=== PATIENT | female | born 1955 | race African-American/Black ===

== ENCOUNTER → 2022-10-01 | Outpatient (CLI) | payer OTHER | END | disposition home or self-care (01) | LOC: XYW 07:59 | PROVIDERS: ATTEND Internal Medicine | DX: I51.7 Cardiomegaly (principal); R06.02 Shortness of breath; R20.0 Anesthesia of skin | CPT/HCPCS: 93306 ==

== ENCOUNTER → 2022-11-28 | Outpatient (CLI) | payer OTHER ==
[2022-11-28 08:54] LABS: Albumin 3.2 g/dL (3.4-5.0); Bilirubin, Direct 0.2 mg/dL (0-0.2); Bilirubin, Total 0.5 mg/dL (0.2-1.0); Total Protein 7.5 g/dL (6.4-8.2)
== END | disposition home or self-care (01) ==
LOC: LAB 06:53
PROVIDERS: ATTEND Internal Medicine
DX: E78.5 Hyperlipidemia, unspecified (principal)
CPT/HCPCS: 36415; 80061; 80076

== ENCOUNTER → 2022-12-30 | Outpatient (CLI) | payer OTHER ==
[2022-12-30 08:46] LABS: Basophils # (auto) 0.1 10 ^3/uL (0-0.2); Eosinophils # (auto) 0.2 10 ^3/uL (0-0.8)
[2022-12-30 08:48] LABS: Basophils % (auto) 0.8 % (0.0-2.0); Eosinophils % (auto) 2.2 % (0.0-7.0); Hematocrit 48.3 % (36.0-46.0); Hemoglobin 15.8 g/dL (12.2-16.2); Lymphocytes # (auto) 2.1 10 ^3/uL (0.4-5.4); Lymphocytes % (auto) 24.4 % (10.0-50.0); Mean Corpuscular Hemoglobin 27.2 pg (28.0-32.0); Mean Corpuscular Hgb Conc. 32.8 g/dL (32.0-36.0); Monocytes # (auto) 0.4 10 ^3/uL (0-1.3); Monocytes % (auto) 4.6 % (0.0-12.0); Nucleated Red Blood Cells % 0.1 %; Red Blood Cells 5.82 10^6/uL (4.0-5.20); Red Cell Distribution Width 19.1 % (11.8-14.3); White Blood Cell 8.8 10^3/uL (4.4-10.8)
[2022-12-30 09:22] LABS: Potassium 3.9 mmol/L (3.5-5.1)
[2022-12-30 09:30] LABS: Albumin 3.2 g/dL (3.4-5.0); BUN/Creatinine Ratio 17.3 (10.0-20.0); Bilirubin, Total 0.6 mg/dL (0.2-1.0); Calcium 8.6 mg/dL (8.5-10.1); Total Protein 7.4 g/dL (6.4-8.2)
== END | disposition home or self-care (01) ==
LOC: LAB 08:30
PROVIDERS: ATTEND Internal Medicine
DX: Z12.11 Encounter for screening for malignant neoplasm of colon (principal); E78.5 Hyperlipidemia, unspecified
CPT/HCPCS: 36415; 80053; 85025

== ENCOUNTER → 2023-03-27 | Outpatient (CLI) | payer OTHER ==
[2023-03-27 08:02] LABS: Basophils # (auto) 0.1 10 ^3/uL (0-0.2); Basophils % (auto) 0.7 % (0.0-2.0); Eosinophils # (auto) 0.2 10 ^3/uL (0-0.8); Lymphocytes # (auto) 2.1 10 ^3/uL (0.4-5.4)
[2023-03-27 08:04] LABS: Eosinophils % (auto) 1.8 % (0.0-7.0); Hematocrit 49.9 % (36.0-46.0); Hemoglobin 16.3 g/dL (12.2-16.2); Lymphocytes % (auto) 19.5 % (10.0-50.0); Mean Corpuscular Hemoglobin 27.8 pg (28.0-32.0); Mean Corpuscular Hgb Conc. 32.7 g/dL (32.0-36.0); Mean Corpuscular Volume 84.9 fL (80.0-100.0); Monocytes # (auto) 0.6 10 ^3/uL (0-1.3); Monocytes % (auto) 5.6 % (0.0-12.0); Neutrophils % (auto) 72.4 % (37.0-80.0); Nucleated Red Blood Cells % 0.3 %; Red Blood Cells 5.88 10^6/uL (4.0-5.20)
== END | disposition home or self-care (01) ==
LOC: LAB 07:35
PROVIDERS: ATTEND Internal Medicine
DX: R79.89 Other specified abnormal findings of blood chemistry (principal)
CPT/HCPCS: 36415; 85025

== ENCOUNTER 2023-05-30 04:10 | Inpatient (IN) | payer OTHER ==
[~2023-05-30] VITALS: Ht 167.6 cm; Wt 105.3 kg
[2023-05-30] VITALS (11 sets, daily range): BP systolic 109–129; BP diastolic 40–68; PULSE 69–150; RESP 17–35; TEMP 97.9–100.9; O2SAT 92–98
[2023-05-30] MEDS ORDERED: methylPREDNISolone SOD SUCC 125 MG/2 ML VL IV ONE (04:15)
[2023-05-30] MEDS ORDERED: IPRATROPIUM BROM 0.5 MG/2.5ML INH SOL NEB ONE (04:15)
[2023-05-30] MEDS ORDERED: ALBUTEROL SULF 2.5 MG/0.5ML(0.5%) NEB SOLN NEB ONE (04:15)
[2023-05-30 04:28] LABS: Basophils # (auto) 0.1 10 ^3/uL (0-0.2); Eosinophils # (auto) 0.1 10 ^3/uL (0-0.8); Mean Corpuscular Hemoglobin 26.3 pg (28.0-32.0); Monocytes # (auto) 0.9 10 ^3/uL (0-1.3)
[2023-05-30 04:30] LABS: Basophils % (auto) 0.8 % (0.0-2.0); Eosinophils % (auto) 0.5 % (0.0-7.0); Hematocrit 55.7 % (36.0-46.0); Hemoglobin 17.7 g/dL (12.2-16.2); Lymphocytes # (auto) 1.9 10 ^3/uL (0.4-5.4); Lymphocytes % (auto) 12.8 % (10.0-50.0); Mean Corpuscular Hgb Conc. 31.8 g/dL (32.0-36.0); Mean Corpuscular Volume 82.9 fL (80.0-100.0); Neutrophils # (auto) 12.1 10 ^3/uL (1.6-8.6); Neutrophils % (auto) 79.9 % (37.0-80.0); Nucleated Red Blood Cells % 0.3 %; Red Blood Cells 6.71 10^6/uL (4.0-5.20); Red Cell Distribution Width 17.5 % (11.8-14.3); White Blood Cell 15.1 10^3/uL (4.4-10.8)
[2023-05-30 04:40] LABS: Chloride 104 mmol/L (98-107); Potassium 3.9 mmol/L (3.5-5.1); Sodium 137 mmol/L (136-145)
[2023-05-30 04:41] LABS: Anion Gap 8 (5-15); Calcium 9.7 mg/dL (8.7-10.4); Carbon Dioxide 25 mmol/L (20-30)
[2023-05-30] MEDS ORDERED: cefTRIAXone SOD 1,000 MG VL IV ONE (04:45)
[2023-05-30] MEDS ORDERED: AZITHROMYCIN 500MG/ 250ML 250 ML IV ONE (04:45)
[2023-05-30 04:46] LABS: BUN/Creatinine Ratio 14.7 (10.0-20.0); Blood Urea Nitrogen 17 mg/dL (9-23); Glucose 109 mg/dL (74-106)
[2023-05-30] MEDS ORDERED: FUROSEMIDE 100 MG/10ML VIAL IV ONE (05:15)
[2023-05-30] MEDS ORDERED: NITROGLYCERIN 0.4MG/HR TOPICAL PATCH TD ONE (05:15)
[2023-05-30 05:20] LABS: COVID19 ANTIGEN SOFIA FIA NEGATIVE (NEGATIVE)
[2023-05-30] MEDS ORDERED: IPRATROPIUM BROM 0.5 MG/2.5ML INH SOL NEB PRN (06:00)
[2023-05-30] MEDS ORDERED: ALBUTEROL SULF 2.5 MG/0.5ML(0.5%) NEB SOLN NEB PRN (06:00)
[2023-05-30 06:30] LABS: Urine Epithelial Cast None Seen /hpf (<5)
[2023-05-30] MEDS ORDERED: ACETAMINOPHEN 325 MG TAB PO ONE (06:30)
[2023-05-30 06:57] LABS: Urine Bacteria FEW /hpf (None Seen); Urine Blood Negative /uL (Negative); Urine Clarity HAZY (Clear); Urine Color Straw (Yellow); Urine Protein, UAD Negative (Negative); Urine Specific Gravity 1.012 (1.001-1.035); Urine Urobilinogen Normal (Negative); Urine WBC 1 /hpf (0 - 5)
[2023-05-30] MEDS ORDERED: cefTRIAXone 1GM/50ML D5W 50 ML IV SCH (09:00)
[2023-05-30] MEDS: CARVEDILOL 12.5 MG TAB PO SCH ×2 (09:53→22:30)
[2023-05-30] MEDS: LISINOPRIL 10 MG TAB PO SCH (09:53)
[2023-05-30 09:57] LABS: Base Excess 0.3 mmol/L (-2.0-2.0)
[2023-05-30] MEDS ORDERED: EMPAGLIFLOZIN 10 MG TAB PO SCH (10:00)
[2023-05-30] MEDS ORDERED: methylPREDNISolone SOD SUCC 125 MG/2 ML VL IV SCH (10:00)
[2023-05-30] MEDS ORDERED: FUROSEMIDE 20 MG/2 ML VIAL IV SCH ×2 (10:00→17:00)
[2023-05-30] MEDS ORDERED: SACUBITRIL-VALSARTAN 24mg/26mg TAB PO SCH (10:00)
[2023-05-30] MEDS ORDERED: AZITHROMYCIN 500MG/ 250ML 250 ML IV SCH (10:00)
[2023-05-30] MEDS: IPRATROPIUM BROM 0.5 MG/2.5ML INH SOL NEB SCH ×2 (12:25→18:00)
[2023-05-30] MEDS: ALBUTEROL SULF 2.5 MG/0.5ML(0.5%) NEB SOLN NEB SCH ×2 (12:25→18:00)
[2023-05-30] MEDS ORDERED: OPTISON 3ml Vial for INJ IV ONE ×2 (13:45→13:59)
[2023-05-30] MEDS: ALBUTEROL SULF 2.5 MG/0.5ML(0.5%) NEB SOLN NEB PRN (19:26)
[2023-05-30] MEDS: ACETAMINOPHEN 325 MG TAB PO PRN (21:15)
[2023-05-31] VITALS (25 sets, daily range): BP systolic 113–142; BP diastolic 57–102; PULSE 62–127; RESP 16–24; TEMP 97.1–97.9; O2SAT 92–98
[2023-05-31] MEDS: ALBUTEROL SULF 2.5 MG/0.5ML(0.5%) NEB SOLN NEB SCH ×6 (00:36→22:22)
[2023-05-31] MEDS: IPRATROPIUM BROM 0.5 MG/2.5ML INH SOL NEB SCH ×6 (00:36→22:22)
[2023-05-31] MEDS: cefTRIAXone 1GM/50ML D5W 50 ML IV SCH (04:00)
[2023-05-31] MEDS: AZITHROMYCIN 500MG/ 250ML 250 ML IV SCH (05:42)
[2023-05-31 06:15] LABS: Basophils # (auto) 0 10 ^3/uL (0-0.2); Eosinophils # (auto) 0 10 ^3/uL (0-0.8); Lymphocytes # (auto) 1.5 10 ^3/uL (0.4-5.4)
[2023-05-31 06:19] LABS: Basophils % (auto) 0.2 % (0.0-2.0); Hematocrit 52.9 % (36.0-46.0); Lymphocytes % (auto) 9.3 % (10.0-50.0); Mean Corpuscular Hemoglobin 26.5 pg (28.0-32.0); Mean Corpuscular Hgb Conc. 32.1 g/dL (32.0-36.0); Mean Corpuscular Volume 82.3 fL (80.0-100.0); Monocytes # (auto) 1.4 10 ^3/uL (0-1.3); Monocytes % (auto) 8.8 % (0.0-12.0); Neutrophils # (auto) 12.8 10 ^3/uL (1.6-8.6); Neutrophils % (auto) 81.7 % (37.0-80.0); Nucleated Red Blood Cells % 0.4 %; Red Blood Cells 6.43 10^6/uL (4.0-5.20); White Blood Cell 15.7 10^3/uL (4.4-10.8)
[2023-05-31 06:20] LABS: Alanine Aminotransferase 26 U/L (7-40); Alkaline Phosphatase 75 U/L (46-116); Anion Gap 10 (5-15); BUN/Creatinine Ratio 19.7 (10.0-20.0); Calcium 9.3 mg/dL (8.7-10.4); Carbon Dioxide 25 mmol/L (20-30); Chloride 101 mmol/L (98-107); Glucose 103 mg/dL (74-106); Potassium 4.6 mmol/L (3.5-5.1); Sodium 136 mmol/L (136-145)
[2023-05-31 06:21] LABS: Albumin 4.2 g/dL (3.2-4.8); Aspartate Aminotransferase 39 U/L (13-40); Bilirubin, Total 0.5 mg/dL (0.2-1.0); Total Protein 7.5 g/dL (5.7-8.2)
[2023-05-31 06:36] LABS: Blood Urea Nitrogen 29 mg/dL (9-23)
[2023-05-31] MEDS: LISINOPRIL 10 MG TAB PO SCH (08:20)
[2023-05-31] MEDS: methylPREDNISolone SOD SUCC 125 MG/2 ML VL IV SCH (08:21)
[2023-05-31] MEDS: CARVEDILOL 12.5 MG TAB PO SCH ×2 (08:21→22:53)
[2023-05-31] MEDS ORDERED: FUROSEMIDE 20 MG/2 ML VIAL IV SCH (10:00)
[2023-05-31] MEDS: ALBUTEROL SULF 2.5 MG/0.5ML(0.5%) NEB SOLN NEB PRN (10:33)
[2023-05-31] MEDS ORDERED: ALPRAZolam 0.5 MG TAB PO ONE (10:45)
[2023-05-31] MEDS: ALPRAZolam 0.5 MG TAB PO PRN (16:29)
[2023-06-01] VITALS (36 sets, daily range): BP systolic 120–149; BP diastolic 59–91; PULSE 65–121; RESP 16–28; TEMP 97.2–98.7; O2SAT 91–99
[2023-06-01] MEDS: ALPRAZolam 0.5 MG TAB PO PRN ×4 (00:45→21:37)
[2023-06-01] MEDS: guaiFENesin 200 MG/10 ML UD GT PRN ×2 (00:45→06:48)
[2023-06-01] MEDS: IPRATROPIUM BROM 0.5 MG/2.5ML INH SOL NEB SCH ×6 (02:10→22:07)
[2023-06-01] MEDS: ALBUTEROL SULF 2.5 MG/0.5ML(0.5%) NEB SOLN NEB SCH ×4 (02:10→13:58)
[2023-06-01] MEDS: cefTRIAXone 1GM/50ML D5W 50 ML IV SCH (05:01)
[2023-06-01] MEDS: AZITHROMYCIN 500MG/ 250ML 250 ML IV SCH (05:01)
[2023-06-01 06:59] LABS: Basophils # (auto) 0 10 ^3/uL (0-0.2); Eosinophils # (auto) 0 10 ^3/uL (0-0.8); Lymphocytes # (auto) 1.1 10 ^3/uL (0.4-5.4); Monocytes # (auto) 0.9 10 ^3/uL (0-1.3); Nucleated Red Blood Cells % 0.3 %
[2023-06-01 07:02] LABS: Hemoglobin 17.3 g/dL (12.2-16.2); Lymphocytes % (auto) 8.9 % (10.0-50.0); Mean Corpuscular Hemoglobin 26.7 pg (28.0-32.0); Mean Corpuscular Hgb Conc. 32.6 g/dL (32.0-36.0); Mean Corpuscular Volume 81.9 fL (80.0-100.0); Monocytes % (auto) 6.8 % (0.0-12.0); Neutrophils # (auto) 10.7 10 ^3/uL (1.6-8.6); Neutrophils % (auto) 84.3 % (37.0-80.0); Red Blood Cells 6.48 10^6/uL (4.0-5.20); Red Cell Distribution Width 16.9 % (11.8-14.3); White Blood Cell 12.6 10^3/uL (4.4-10.8)
[2023-06-01 07:24] LABS: Alanine Aminotransferase 35 U/L (7-40); Albumin 4.1 g/dL (3.2-4.8); Alkaline Phosphatase 74 U/L (46-116); Anion Gap 9 (5-15); Aspartate Aminotransferase 53 U/L (13-40); BUN/Creatinine Ratio 28.2 (10.0-20.0); Bilirubin, Total 0.6 mg/dL (0.2-1.0); Blood Urea Nitrogen 33 mg/dL (9-23); Calcium 9.6 mg/dL (8.5-10.1); Carbon Dioxide 27 mmol/L (20-30); Chloride 101 mmol/L (98-107); Glucose 89 mg/dL (74-106); Sodium 137 mmol/L (136-145); Total Protein 7.4 g/dL (5.7-8.2)
[2023-06-01] MEDS: LISINOPRIL 10 MG TAB PO SCH (09:30)
[2023-06-01] MEDS: methylPREDNISolone SOD SUCC 125 MG/2 ML VL IV SCH ×3 (09:31→21:27)
[2023-06-01] MEDS: CARVEDILOL 12.5 MG TAB PO SCH ×2 (09:31→15:40)
[2023-06-01] MEDS ORDERED: DOXY-267 PO (12:26)
[2023-06-01] MEDS ORDERED: ATOR10TA52 PO (12:26)
[2023-06-01] MEDS ORDERED: MET25T PO (12:26)
[2023-06-01] MEDS ORDERED: FLUT50SP NAS (12:26)
[2023-06-01] MEDS ORDERED: AMLO1TAB22 PO (12:26)
[2023-06-01] MEDS ORDERED: BUPR-60 PO (12:26)
[2023-06-01] MEDS ORDERED: SIMV10TA20 PO (12:26)
[2023-06-01] MEDS ORDERED: HYDR-4798 (12:26)
[2023-06-01] MEDS ORDERED: IPRA0.00 (12:26)
[2023-06-01] MEDS ORDERED: UMEC1AER (12:26)
[2023-06-01] MEDS ORDERED: HYDR25TA5 PO (12:26)
[2023-06-01] MEDS ORDERED: TEMA15CA2 PO (12:26)
[2023-06-01] MEDS ORDERED: LOSA50TA46 PO (12:26)
[2023-06-01] MEDS ORDERED: PRED20TA2 PO (12:26)
[2023-06-01] MEDS ORDERED: ALBU108A5 INH (12:26)
[2023-06-01] MEDS: ALBUTEROL SULF 2.5 MG/0.5ML(0.5%) NEB SOLN NEB PRN (12:30)
[2023-06-01 12:56] LABS: Base Excess 1.7 mmol/L (-2.0-2.0)
[2023-06-01] MEDS ORDERED: methylPREDNISolone SOD SUCC 40 MG/ML VL IV ONE (13:30)
[2023-06-01] MEDS ORDERED: AMIODARONE BOLUS KIT 100 ML IV ONE (14:00)
[2023-06-01] MEDS ORDERED: ENOXAPARIN SOD 100 MG/1 ML SYRINGE SC ONE (14:00)
[2023-06-01] MEDS ORDERED: AMIODARONE 450mg/250ml AE 250 ML IV SCH ×2 (14:00→20:00)
[2023-06-01] MEDS ORDERED: CARVEDILOL 12.5 MG TAB PO ONE (15:30)
[2023-06-01] MEDS ORDERED: ALBUTEROL SULF 2.5 MG/0.5ML(0.5%) NEB SOLN NEB ONE (16:45)
[2023-06-01] MEDS ORDERED: LEVALBUTEROL HCL 1.25 MG/3 ML NEB NEB SCH (18:00)
[2023-06-01] MEDS: LEVALBUTEROL HCL 1.25 MG/3 ML NEB NEB SCH (22:07)
[2023-06-02] VITALS (40 sets, daily range): BP systolic 108–158; BP diastolic 53–110; PULSE 85–113; RESP 19–40; TEMP 97.4–99.5; O2SAT 89–100
[2023-06-02] MEDS: LEVALBUTEROL HCL 1.25 MG/3 ML NEB NEB SCH ×6 (02:09→22:15)
[2023-06-02] MEDS: IPRATROPIUM BROM 0.5 MG/2.5ML INH SOL NEB SCH ×6 (02:09→22:15)
[2023-06-02] MEDS: cefTRIAXone 1GM/50ML D5W 50 ML IV SCH (03:09)
[2023-06-02] MEDS: methylPREDNISolone SOD SUCC 125 MG/2 ML VL IV SCH ×3 (03:10→21:04)
[2023-06-02] MEDS: ALPRAZolam 0.5 MG TAB PO PRN ×2 (03:11→21:04)
[2023-06-02 04:01] LABS: Base Excess 0.1 mmol/L (-2.0-2.0)
[2023-06-02] MEDS: AZITHROMYCIN 500MG/ 250ML 250 ML IV SCH (04:33)
[2023-06-02 04:44] LABS: Basophils # (auto) 0 10 ^3/uL (0-0.2); Eosinophils # (auto) 0 10 ^3/uL (0-0.8); Hemoglobin 17.4 g/dL (12.2-16.2); Monocytes # (auto) 0.2 10 ^3/uL (0-1.3)
[2023-06-02 04:46] LABS: Basophils % (auto) 0.1 % (0.0-2.0); Hematocrit 54.4 % (36.0-46.0); Lymphocytes # (auto) 0.7 10 ^3/uL (0.4-5.4); Lymphocytes % (auto) 6.9 % (10.0-50.0); Mean Corpuscular Hemoglobin 26.6 pg (28.0-32.0); Monocytes % (auto) 2.3 % (0.0-12.0); Neutrophils # (auto) 8.5 10 ^3/uL (1.6-8.6); Neutrophils % (auto) 90.7 % (37.0-80.0); Nucleated Red Blood Cells % 0.5 %; Red Blood Cells 6.55 10^6/uL (4.0-5.20); Red Cell Distribution Width 17.1 % (11.8-14.3); White Blood Cell 9.4 10^3/uL (4.4-10.8)
[2023-06-02 05:02] LABS: Alanine Aminotransferase 35 U/L (7-40); Alkaline Phosphatase 68 U/L (46-116); Anion Gap 3 (5-15); Aspartate Aminotransferase 36 U/L (13-40); BUN/Creatinine Ratio 22.3 (10.0-20.0); Bilirubin, Total 0.4 mg/dL (0.2-1.0); Calcium 9.1 mg/dL (8.7-10.4); Carbon Dioxide 29 mmol/L (20-30); Chloride 102 mmol/L (98-107); Glucose 142 mg/dL (74-106); Potassium 5.2 mmol/L (3.5-5.1); Sodium 134 mmol/L (136-145); Total Protein 7.2 g/dL (5.7-8.2)
[2023-06-02 05:18] LABS: Blood Urea Nitrogen 23 mg/dL (9-23)
[2023-06-02 08:31] LABS: Base Excess 3.7 mmol/L (-2.0-2.0)
[2023-06-02] MEDS ORDERED: ENOXAPARIN SOD 100 MG/1 ML SYRINGE SC SCH (10:00)
[2023-06-02] MEDS: CARVEDILOL 12.5 MG TAB PO SCH (10:06)
[2023-06-02] MEDS: LISINOPRIL 10 MG TAB PO SCH (10:06)
[2023-06-02] MEDS ORDERED: MAGNESIUM SULFATE 1GM/100ML 100 ML IV ONE (11:45)
[2023-06-02] MEDS: BUMETANIDE 2.5mg/10ml (0.25 mg/ml) INJ IV SCH ×2 (12:35→18:34)
[2023-06-02 16:33] LABS: Base Excess 5.6 mmol/L (-2.0-2.0)
[2023-06-02] MEDS: ALBUTEROL SULF 2.5 MG/0.5ML(0.5%) NEB SOLN NEB PRN (16:38)
[2023-06-02] MEDS: BUDESONIDE (INHALATION) 0.5 MG/2 ML NEB NEB SCH (22:15)
[2023-06-03] VITALS (38 sets, daily range): BP systolic 101–151; BP diastolic 53–98; PULSE 83–113; RESP 15–25; TEMP 97.7–98.9; O2SAT 87–98
[2023-06-03] MEDS: LEVALBUTEROL HCL 1.25 MG/3 ML NEB NEB SCH ×6 (02:19→22:18)
[2023-06-03] MEDS: IPRATROPIUM BROM 0.5 MG/2.5ML INH SOL NEB SCH ×6 (02:20→22:18)
[2023-06-03] MEDS: cefTRIAXone 1GM/50ML D5W 50 ML IV SCH (03:27)
[2023-06-03 04:54] LABS: Basophils # (auto) 0 10 ^3/uL (0-0.2); Eosinophils # (auto) 0 10 ^3/uL (0-0.8); Lymphocytes # (auto) 0.7 10 ^3/uL (0.4-5.4)
[2023-06-03 04:55] LABS: Basophils % (auto) 0.1 % (0.0-2.0); Hematocrit 56.1 % (36.0-46.0); Lymphocytes % (auto) 5.4 % (10.0-50.0); Mean Corpuscular Hemoglobin 26.6 pg (28.0-32.0); Mean Corpuscular Volume 82.9 fL (80.0-100.0); Monocytes # (auto) 0.6 10 ^3/uL (0-1.3); Monocytes % (auto) 4.9 % (0.0-12.0); Neutrophils # (auto) 11.7 10 ^3/uL (1.6-8.6); Neutrophils % (auto) 89.6 % (37.0-80.0); Nucleated Red Blood Cells % 0.6 %; Red Blood Cells 6.76 10^6/uL (4.0-5.20)
[2023-06-03 05:12] LABS: Alanine Aminotransferase 40 U/L (7-40); Alkaline Phosphatase 66 U/L (46-116); Anion Gap 2 (5-15); Aspartate Aminotransferase 26 U/L (13-40); Calcium 9.5 mg/dL (8.5-10.1); Carbon Dioxide 34 mmol/L (20-30); Chloride 103 mmol/L (98-107); Glucose 141 mg/dL (74-106); Potassium 5.3 mmol/L (3.5-5.1); Sodium 139 mmol/L (136-145)
[2023-06-03 05:13] LABS: Bilirubin, Total 0.5 mg/dL (0.2-1.0); Total Protein 7.2 g/dL (5.7-8.2)
[2023-06-03 05:18] LABS: Blood Urea Nitrogen 33 mg/dL (9-23)
[2023-06-03] MEDS: BUMETANIDE 2.5mg/10ml (0.25 mg/ml) INJ IV SCH ×2 (05:41→18:36)
[2023-06-03] MEDS: BUDESONIDE (INHALATION) 0.5 MG/2 ML NEB NEB SCH ×2 (06:49→22:18)
[2023-06-03] MEDS: ALBUTEROL SULF 2.5 MG/0.5ML(0.5%) NEB SOLN NEB PRN (06:49)
[2023-06-03 08:40] LABS: Base Excess 8.6 mmol/L (-2.0-2.0)
[2023-06-03] MEDS: LISINOPRIL 10 MG TAB PO SCH (09:57)
[2023-06-03] MEDS: methylPREDNISolone SOD SUCC 125 MG/2 ML VL IV SCH ×2 (09:59→18:00)
[2023-06-03] MEDS: AZITHROMYCIN 250 MG TAB PO SCH (09:59)
[2023-06-03] MEDS ORDERED: dilTIAZem HCL 180MG ER CAP PO SCH (10:00)
[2023-06-03] MEDS: Ensure Enlive Strawberry 8oz Bottle PO SCH (18:00)
[2023-06-03] MEDS: ALPRAZolam 0.5 MG TAB PO PRN (22:01)
[2023-06-04] VITALS (34 sets, daily range): BP systolic 121–179; BP diastolic 74–139; PULSE 79–107; RESP 13–30; TEMP 97–98.2; O2SAT 85–93
[2023-06-04] MEDS: methylPREDNISolone SOD SUCC 125 MG/2 ML VL IV SCH ×3 (01:57→18:03)
[2023-06-04] MEDS: LEVALBUTEROL HCL 1.25 MG/3 ML NEB NEB SCH ×6 (02:14→22:48)
[2023-06-04] MEDS: IPRATROPIUM BROM 0.5 MG/2.5ML INH SOL NEB SCH ×6 (02:14→22:48)
[2023-06-04] MEDS: cefTRIAXone 1GM/50ML D5W 50 ML IV SCH (03:18)
[2023-06-04] MEDS: ALBUTEROL SULF 2.5 MG/0.5ML(0.5%) NEB SOLN NEB PRN ×2 (04:09→11:39)
[2023-06-04 04:51] LABS: Basophils # (auto) 0 10 ^3/uL (0-0.2); Eosinophils # (auto) 0 10 ^3/uL (0-0.8); Hemoglobin 18.5 g/dL (12.2-16.2); Lymphocytes # (auto) 0.7 10 ^3/uL (0.4-5.4); Lymphocytes % (auto) 5.1 % (10.0-50.0); Monocytes # (auto) 0.3 10 ^3/uL (0-1.3); Monocytes % (auto) 2.6 % (0.0-12.0); Neutrophils # (auto) 11.8 10 ^3/uL (1.6-8.6)
[2023-06-04 04:54] LABS: Basophils % (auto) 0.1 % (0.0-2.0); Eosinophils % (auto) 0.1 % (0.0-7.0); Mean Corpuscular Hemoglobin 26.3 pg (28.0-32.0); Mean Corpuscular Hgb Conc. 31.5 g/dL (32.0-36.0); Mean Corpuscular Volume 83.7 fL (80.0-100.0); Neutrophils % (auto) 92.1 % (37.0-80.0); Nucleated Red Blood Cells % 0.6 %; Red Blood Cells 7.02 10^6/uL (4.0-5.20); Red Cell Distribution Width 16.9 % (11.8-14.3); White Blood Cell 12.8 10^3/uL (4.4-10.8)
[2023-06-04 04:58] LABS: Hematocrit 58.8 % (36.0-46.0)
[2023-06-04 05:16] LABS: Alanine Aminotransferase 42 U/L (7-40); Albumin 4.1 g/dL (3.2-4.8); Alkaline Phosphatase 72 U/L (46-116); Anion Gap 4 (5-15); Aspartate Aminotransferase 20 U/L (13-40); BUN/Creatinine Ratio 31.5 (10.0-20.0); Bilirubin, Total 0.5 mg/dL (0.2-1.0); Blood Urea Nitrogen 35 mg/dL (9-23); Calcium 10.2 mg/dL (8.5-10.1); Carbon Dioxide 34 mmol/L (20-30); Chloride 100 mmol/L (98-107); Glucose 178 mg/dL (74-106); Potassium 5.1 mmol/L (3.5-5.1); Sodium 138 mmol/L (136-145); Total Protein 7.4 g/dL (5.7-8.2)
[2023-06-04] MEDS: BUMETANIDE 2.5mg/10ml (0.25 mg/ml) INJ IV SCH ×2 (05:29→18:02)
[2023-06-04] MEDS: BUDESONIDE (INHALATION) 0.5 MG/2 ML NEB NEB SCH ×2 (06:50→18:26)
[2023-06-04] MEDS: Ensure Enlive Strawberry 8oz Bottle PO SCH ×3 (08:21→18:00)
[2023-06-04 09:28] LABS: Base Excess 7.1 mmol/L (-2.0-2.0)
[2023-06-04] MEDS: AZITHROMYCIN 250 MG TAB PO SCH (09:43)
[2023-06-04] MEDS: dilTIAZem HCL 180MG ER CAP PO SCH (09:45)
[2023-06-04] MEDS: ACETYLCYSTEINE 10 %(100MG/ML) SOL 4ML NEB SCH ×2 (14:17→22:48)
[2023-06-04] MEDS: ALPRAZolam 0.5 MG TAB PO PRN (20:47)
[2023-06-04] MEDS: DOCUSATE ORAL LIQUID 100 MG/10 ML UD GT SCH (21:14)
[2023-06-05] VITALS (44 sets, daily range): BP systolic 129–171; BP diastolic 72–104; PULSE 64–104; RESP 14–26; TEMP 97.2–98.5; O2SAT 88–95
[2023-06-05] MEDS: methylPREDNISolone SOD SUCC 125 MG/2 ML VL IV SCH ×3 (02:05→17:37)
[2023-06-05] MEDS: LEVALBUTEROL HCL 1.25 MG/3 ML NEB NEB SCH ×6 (02:21→21:54)
[2023-06-05] MEDS: IPRATROPIUM BROM 0.5 MG/2.5ML INH SOL NEB SCH ×6 (02:21→21:54)
[2023-06-05] MEDS: cefTRIAXone 1GM/50ML D5W 50 ML IV SCH (03:50)
[2023-06-05 04:58] LABS: Basophils # (auto) 0 10 ^3/uL (0-0.2); Basophils % (auto) 0.1 % (0.0-2.0); Eosinophils # (auto) 0 10 ^3/uL (0-0.8); Lymphocytes % (auto) 5.8 % (10.0-50.0); Monocytes # (auto) 0.5 10 ^3/uL (0-1.3); Monocytes % (auto) 2.8 % (0.0-12.0); Neutrophils % (auto) 91.3 % (37.0-80.0); Red Cell Distribution Width 17.2 % (11.8-14.3)
[2023-06-05 05:01] LABS: Hemoglobin 18.6 g/dL (12.2-16.2); Mean Corpuscular Hemoglobin 26.1 pg (28.0-32.0); Mean Corpuscular Hgb Conc. 31.2 g/dL (32.0-36.0); Mean Corpuscular Volume 83.5 fL (80.0-100.0); Neutrophils # (auto) 15.4 10 ^3/uL (1.6-8.6); Nucleated Red Blood Cells % 0.4 %; Red Blood Cells 7.14 10^6/uL (4.0-5.20); White Blood Cell 16.9 10^3/uL (4.4-10.8)
[2023-06-05 05:04] LABS: Hematocrit 59.6 % (36.0-46.0)
[2023-06-05 05:38] LABS: Chloride 100 mmol/L (98-107); Potassium 5.3 mmol/L (3.5-5.1); Sodium 136 mmol/L (136-145)
[2023-06-05 05:39] LABS: Anion Gap 4 (5-15); Calcium 9.9 mg/dL (8.7-10.4); Carbon Dioxide 32 mmol/L (20-30)
[2023-06-05 05:44] LABS: BUN/Creatinine Ratio 30.6 (10.0-20.0); Blood Urea Nitrogen 30 mg/dL (9-23); Glucose 174 mg/dL (74-106)
[2023-06-05] MEDS: BUMETANIDE 2.5mg/10ml (0.25 mg/ml) INJ IV SCH ×2 (05:59→17:37)
[2023-06-05] MEDS: ACETYLCYSTEINE 10 %(100MG/ML) SOL 4ML NEB SCH ×3 (06:26→21:54)
[2023-06-05] MEDS: BUDESONIDE (INHALATION) 0.5 MG/2 ML NEB NEB SCH ×2 (06:26→17:17)
[2023-06-05] MEDS: Ensure Enlive Strawberry 8oz Bottle PO SCH ×3 (08:41→18:14)
[2023-06-05] MEDS: DOCUSATE ORAL LIQUID 100 MG/10 ML UD GT SCH ×2 (08:49→21:54)
[2023-06-05] MEDS: dilTIAZem HCL 180MG ER CAP PO SCH (08:49)
[2023-06-05] MEDS: AZITHROMYCIN 250 MG TAB PO SCH (08:50)
[2023-06-05] MEDS ORDERED: SODIUM ZIRCONIUM CYCL 10 GM PAK PO ONE (10:45)
[2023-06-05] MEDS ORDERED: hydrALAZINE HCL 20 MG/ML VL IV PRN (16:15)
[2023-06-05 16:33] LABS: Base Excess 12.2 mmol/L (-2.0-2.0)
[2023-06-05 20:17] LABS: Erythrocyte Sedimentation Rate 2 mm/hr (0-20)
[2023-06-05] MEDS: ALPRAZolam 0.5 MG TAB PO PRN (21:54)
[2023-06-06] VITALS (34 sets, daily range): BP systolic 117–154; BP diastolic 74–94; PULSE 83–104; RESP 13–23; TEMP 97.6–98.8; O2SAT 20–93
[2023-06-06] MEDS: LEVALBUTEROL HCL 1.25 MG/3 ML NEB NEB SCH ×6 (02:08→22:34)
[2023-06-06] MEDS: IPRATROPIUM BROM 0.5 MG/2.5ML INH SOL NEB SCH ×6 (02:08→22:35)
[2023-06-06] MEDS: methylPREDNISolone SOD SUCC 125 MG/2 ML VL IV SCH ×3 (02:58→18:00)
[2023-06-06] MEDS: cefTRIAXone 1GM/50ML D5W 50 ML IV SCH (03:00)
[2023-06-06] MEDS: BUMETANIDE 2.5mg/10ml (0.25 mg/ml) INJ IV SCH (05:56)
[2023-06-06] MEDS: ACETYLCYSTEINE 10 %(100MG/ML) SOL 4ML NEB SCH ×3 (06:31→22:35)
[2023-06-06] MEDS: BUDESONIDE (INHALATION) 0.5 MG/2 ML NEB NEB SCH ×2 (06:32→22:34)
[2023-06-06 07:05] LABS: Hemoglobin 19.2 g/dL (12.2-16.2)
[2023-06-06 07:07] LABS: Mean Corpuscular Hgb Conc. 31.1 g/dL (32.0-36.0); Mean Corpuscular Volume 83.6 fL (80.0-100.0); Red Blood Cells 7.38 10^6/uL (4.0-5.20); White Blood Cell 17.8 10^3/uL (4.4-10.8)
[2023-06-06 07:14] LABS: Chloride 96 mmol/L (98-107); Sodium 140 mmol/L (136-145)
[2023-06-06 07:15] LABS: Anion Gap 6 (5-15); Calcium 10.5 mg/dL (8.5-10.1); Carbon Dioxide 38 mmol/L (20-30)
[2023-06-06 07:20] LABS: BUN/Creatinine Ratio 34.7 (10.0-20.0); Blood Urea Nitrogen 35 mg/dL (9-23); Glucose 147 mg/dL (74-106)
[2023-06-06 07:44] LABS: Hematocrit 61.7 % (36.0-46.0)
[2023-06-06 07:48] LABS: Basophils % (manual) 0 (0.0-2.0); Blast Cells 0; Eosinophils % (manual) 0 (0-7); Lymphocytes % (manual) 0 (10.0-50.0); Metamyelocytes % 0; Myelocytes % 0; Reactive Lymphocytes 0
[2023-06-06] MEDS: Ensure Enlive Strawberry 8oz Bottle PO SCH ×3 (08:00→18:00)
[2023-06-06] MEDS: DOCUSATE ORAL LIQUID 100 MG/10 ML UD GT SCH ×2 (08:23→21:34)
[2023-06-06] MEDS: AZITHROMYCIN 250 MG TAB PO SCH (08:23)
[2023-06-06] MEDS: CHOLECALCIFEROL (VITD3) 2,000 UNIT CAP/TAB PO SCH (08:23)
[2023-06-06] MEDS: ENOXAPARIN SOD 40 MG/0.4 ML SYRINGE SC SCH (08:24)
[2023-06-06] MEDS: dilTIAZem HCL 180MG ER CAP PO SCH (08:25)
[2023-06-06] MEDS ORDERED: BUMETANIDE 2.5mg/10ml (0.25 mg/ml) INJ IV SCH (10:00)
[2023-06-06 13:45] LABS: Band Neutrophils % (manual) 4; Monocytes % (manual) 1 (0-12); Promyelocytes % 4
[2023-06-06 13:46] LABS: Platelet Estimate Adequate
[2023-06-06 17:57] LABS: Rapid Influenza A Negative (Negative); Rapid Influenza B Negative (Negative)
[2023-06-06] MEDS: LACTULOSE 20Gm/30ML SOLN PO PRN (18:54)
[2023-06-06] MEDS: guaiFENesin 200 MG/10 ML UD GT PRN (19:29)
[2023-06-06] MEDS: ALPRAZolam 0.5 MG TAB PO PRN (21:34)
[2023-06-07] VITALS (41 sets, daily range): BP systolic 116–166; BP diastolic 65–107; PULSE 70–115; RESP 12–23; TEMP 97.6–98.7; O2SAT 88–95
[2023-06-07] MEDS: methylPREDNISolone SOD SUCC 125 MG/2 ML VL IV SCH ×3 (01:32→18:21)
[2023-06-07] MEDS: IPRATROPIUM BROM 0.5 MG/2.5ML INH SOL NEB SCH ×4 (02:15→18:31)
[2023-06-07] MEDS: LEVALBUTEROL HCL 1.25 MG/3 ML NEB NEB SCH ×5 (02:15→22:15)
[2023-06-07] MEDS: cefTRIAXone 1GM/50ML D5W 50 ML IV SCH (03:29)
[2023-06-07 05:19] LABS: Mean Corpuscular Hemoglobin 25.5 pg (28.0-32.0); Mean Corpuscular Hgb Conc. 30.6 g/dL (32.0-36.0); Mean Corpuscular Volume 83.5 fL (80.0-100.0); Red Blood Cells 7.45 10^6/uL (4.0-5.20); White Blood Cell 18.8 10^3/uL (4.4-10.8)
[2023-06-07 05:20] LABS: Basophils % (manual) 0 (0.0-2.0); Blast Cells 0; Eosinophils % (manual) 0 (0-7); Hematocrit 62.2 % (36.0-46.0); Metamyelocytes % 0; Myelocytes % 0; Promyelocytes % 0; Reactive Lymphocytes 0
[2023-06-07 06:14] LABS: Chloride 98 mmol/L (98-107); Potassium 4.6 mmol/L (3.5-5.1); Sodium 139 mmol/L (136-145)
[2023-06-07 06:15] LABS: Anion Gap 5 (5-15); Calcium 9.6 mg/dL (8.7-10.4); Carbon Dioxide 36 mmol/L (20-30)
[2023-06-07 06:20] LABS: BUN/Creatinine Ratio 42.7 (10.0-20.0); Blood Urea Nitrogen 41 mg/dL (9-23); Glucose 172 mg/dL (74-106)
[2023-06-07] MEDS: ACETYLCYSTEINE 10 %(100MG/ML) SOL 4ML NEB SCH ×2 (06:52→22:14)
[2023-06-07] MEDS: BUDESONIDE (INHALATION) 0.5 MG/2 ML NEB NEB SCH ×2 (06:52→22:15)
[2023-06-07] MEDS ORDERED: METOCLOPRAMIDE HCL 5MG/ml INJ 2ml VIAL IV ONE (07:45)
[2023-06-07] MEDS ORDERED: POLYETHYLENE GLYCOL 17 GM PWDR PO ONE (07:45)
[2023-06-07] MEDS: Ensure Enlive Strawberry 8oz Bottle PO SCH ×3 (08:00→18:21)
[2023-06-07 08:21] LABS: Band Neutrophils % (manual) 1; Lymphocytes % (manual) 3 (10.0-50.0); Monocytes % (manual) 3 (0-12)
[2023-06-07 08:26] LABS: Platelet Estimate Adequate
[2023-06-07] MEDS: dilTIAZem HCL 180MG ER CAP PO SCH (08:32)
[2023-06-07] MEDS: AZITHROMYCIN 250 MG TAB PO SCH (08:32)
[2023-06-07] MEDS: DOCUSATE ORAL LIQUID 100 MG/10 ML UD GT SCH ×2 (08:33→21:16)
[2023-06-07] MEDS: CHOLECALCIFEROL (VITD3) 2,000 UNIT CAP/TAB PO SCH (08:33)
[2023-06-07] MEDS: ENOXAPARIN SOD 40 MG/0.4 ML SYRINGE SC SCH (08:33)
[2023-06-07] MEDS ORDERED: FUROSEMIDE 20 MG/2 ML VIAL IV SCH (10:00)
[2023-06-07] MEDS: ALBUTEROL SULF 2.5 MG/0.5ML(0.5%) NEB SOLN NEB PRN (22:15)
[2023-06-07] MEDS: ALPRAZolam 0.5 MG TAB PO PRN (23:37)
[2023-06-08] VITALS (34 sets, daily range): BP systolic 129–161; BP diastolic 78–112; PULSE 75–101; RESP 12–22; TEMP 97.3–98.3; O2SAT 82–95
[2023-06-08] MEDS: methylPREDNISolone SOD SUCC 125 MG/2 ML VL IV SCH (02:00)
[2023-06-08] MEDS: LEVALBUTEROL HCL 1.25 MG/3 ML NEB NEB SCH ×6 (02:05→22:34)
[2023-06-08] MEDS: IPRATROPIUM BROM 0.5 MG/2.5ML INH SOL NEB SCH ×6 (02:06→22:34)
[2023-06-08 05:06] LABS: Chloride 96 mmol/L (98-107); Potassium 5.1 mmol/L (3.5-5.1); Sodium 139 mmol/L (136-145)
[2023-06-08 05:07] LABS: Calcium 9.8 mg/dL (8.7-10.4)
[2023-06-08 05:13] LABS: BUN/Creatinine Ratio 41.7 (10.0-20.0); Blood Urea Nitrogen 35 mg/dL (9-23); Glucose 182 mg/dL (74-106)
[2023-06-08] MEDS: cefTRIAXone 1GM/50ML D5W 50 ML IV SCH (05:16)
[2023-06-08 05:18] LABS: Basophils # (auto) 0 10 ^3/uL (0-0.2); Eosinophils # (auto) 0 10 ^3/uL (0-0.8); Lymphocytes # (auto) 0.6 10 ^3/uL (0.4-5.4); Monocytes # (auto) 0.6 10 ^3/uL (0-1.3); Neutrophils % (auto) 94.3 % (37.0-80.0)
[2023-06-08 05:21] LABS: Basophils % (auto) 0.2 % (0.0-2.0); Lymphocytes % (auto) 2.6 % (10.0-50.0); Mean Corpuscular Hemoglobin 26.5 pg (28.0-32.0); Mean Corpuscular Hgb Conc. 32.3 g/dL (32.0-36.0); Mean Corpuscular Volume 82.1 fL (80.0-100.0); Monocytes % (auto) 2.9 % (0.0-12.0); Neutrophils # (auto) 20.6 10 ^3/uL (1.6-8.6); Nucleated Red Blood Cells % 0.6 %; Red Blood Cells 7.15 10^6/uL (4.0-5.20); Red Cell Distribution Width 17.1 % (11.8-14.3); White Blood Cell 21.9 10^3/uL (4.4-10.8)
[2023-06-08 05:27] LABS: Anion Gap 2.99999 (5-15); Carbon Dioxide > 40 mmol/L (20-30)
[2023-06-08 05:40] LABS: Hematocrit 58.7 % (36.0-46.0)
[2023-06-08] MEDS: BUDESONIDE (INHALATION) 0.5 MG/2 ML NEB NEB SCH ×2 (06:36→22:34)
[2023-06-08] MEDS: Ensure Enlive Strawberry 8oz Bottle PO SCH ×3 (08:00→18:47)
[2023-06-08 09:29] LABS: Base Excess 16.6 mmol/L (-2.0-2.0)
[2023-06-08] MEDS: DOCUSATE ORAL LIQUID 100 MG/10 ML UD GT SCH ×2 (10:55→22:21)
[2023-06-08] MEDS: AZITHROMYCIN 250 MG TAB PO SCH (10:55)
[2023-06-08] MEDS: CHOLECALCIFEROL (VITD3) 2,000 UNIT CAP/TAB PO SCH (10:55)
[2023-06-08] MEDS: ENOXAPARIN SOD 40 MG/0.4 ML SYRINGE SC SCH (10:55)
[2023-06-08] MEDS: dilTIAZem HCL 180MG ER CAP PO SCH (10:56)
[2023-06-08] MEDS: FUROSEMIDE 20 MG/2 ML VIAL IV SCH (10:56)
[2023-06-08] MEDS: methylPREDNISolone SOD SUCC 40 MG/ML VL IV SCH (22:21)
[2023-06-09] VITALS (32 sets, daily range): BP systolic 79–151; BP diastolic 73–90; PULSE 67–114; RESP 13–91; TEMP 97.2–98.4; O2SAT 89–97
[2023-06-09] MEDS: IPRATROPIUM BROM 0.5 MG/2.5ML INH SOL NEB SCH ×6 (02:07→22:50)
[2023-06-09] MEDS: LEVALBUTEROL HCL 1.25 MG/3 ML NEB NEB SCH ×6 (02:07→22:50)
[2023-06-09 05:00] LABS: Red Cell Distribution Width 16.9 % (11.8-14.3)
[2023-06-09 05:04] LABS: Hemoglobin 18.6 g/dL (12.2-16.2); Mean Corpuscular Hgb Conc. 31.5 g/dL (32.0-36.0); Mean Corpuscular Volume 82.6 fL (80.0-100.0); Red Blood Cells 7.14 10^6/uL (4.0-5.20); White Blood Cell 20.5 10^3/uL (4.4-10.8)
[2023-06-09 05:08] LABS: Chloride 95 mmol/L (98-107); Potassium 4.9 mmol/L (3.5-5.1); Sodium 137 mmol/L (136-145)
[2023-06-09 05:09] LABS: Calcium 9.4 mg/dL (8.7-10.4)
[2023-06-09 05:14] LABS: BUN/Creatinine Ratio 38.2 (10.0-20.0); Blood Urea Nitrogen 34 mg/dL (9-23); Glucose 202 mg/dL (74-106)
[2023-06-09 05:22] LABS: Basophils % (manual) 0 (0.0-2.0); Blast Cells 0; Eosinophils % (manual) 0 (0-7); Metamyelocytes % 0; Myelocytes % 0; Promyelocytes % 0; Reactive Lymphocytes 0
[2023-06-09 05:52] LABS: Anion Gap 1.99999 (5-15); Carbon Dioxide > 40 mmol/L (20-30)
[2023-06-09] MEDS: cefTRIAXone 1GM/50ML D5W 50 ML IV SCH (06:49)
[2023-06-09 07:11] LABS: Anisocytosis Slight; Band Neutrophils % (manual) 1; Lymphocytes % (manual) 4 (10.0-50.0); Monocytes % (manual) 3 (0-12); Platelet Estimate Adequate
[2023-06-09] MEDS: Ensure Enlive Strawberry 8oz Bottle PO SCH ×3 (09:26→18:51)
[2023-06-09] MEDS: BUDESONIDE (INHALATION) 0.5 MG/2 ML NEB NEB SCH ×2 (10:18→22:50)
[2023-06-09] MEDS: DOCUSATE ORAL LIQUID 100 MG/10 ML UD GT SCH ×2 (10:33→22:21)
[2023-06-09] MEDS: AZITHROMYCIN 250 MG TAB PO SCH (10:33)
[2023-06-09] MEDS: ENOXAPARIN SOD 40 MG/0.4 ML SYRINGE SC SCH (10:33)
[2023-06-09] MEDS: FUROSEMIDE 20 MG/2 ML VIAL IV SCH (10:34)
[2023-06-09] MEDS: methylPREDNISolone SOD SUCC 40 MG/ML VL IV SCH ×2 (10:34→22:21)
[2023-06-09] MEDS: CHOLECALCIFEROL (VITD3) 2,000 UNIT CAP/TAB PO SCH (10:34)
[2023-06-09] MEDS: LACTULOSE 20Gm/30ML SOLN PO PRN (13:54)
[2023-06-09] MEDS: ALPRAZolam 0.5 MG TAB PO PRN (22:21)
[2023-06-10] VITALS (36 sets, daily range): BP systolic 125–155; BP diastolic 69–122; PULSE 84–120; RESP 12–91; TEMP 97–98.6; O2SAT 9–98
[2023-06-10] MEDS: LEVALBUTEROL HCL 1.25 MG/3 ML NEB NEB SCH ×6 (03:08→22:15)
[2023-06-10] MEDS: IPRATROPIUM BROM 0.5 MG/2.5ML INH SOL NEB SCH ×6 (03:08→22:15)
[2023-06-10 05:18] LABS: Hemoglobin 18.6 g/dL (12.2-16.2)
[2023-06-10 05:21] LABS: Mean Corpuscular Hemoglobin 26.2 pg (28.0-32.0); Mean Corpuscular Hgb Conc. 31.9 g/dL (32.0-36.0); Mean Corpuscular Volume 82.3 fL (80.0-100.0); Red Blood Cells 7.09 10^6/uL (4.0-5.20); Red Cell Distribution Width 16.8 % (11.8-14.3); White Blood Cell 23.1 10^3/uL (4.4-10.8)
[2023-06-10 05:27] LABS: Hematocrit 58.3 % (36.0-46.0)
[2023-06-10 05:28] LABS: Band Neutrophils % (manual) 0; Basophils % (manual) 0 (0.0-2.0); Blast Cells 0; Chloride 94 mmol/L (98-107); Eosinophils % (manual) 0 (0-7); Metamyelocytes % 0; Myelocytes % 0; Potassium 4.8 mmol/L (3.5-5.1); Promyelocytes % 0; Reactive Lymphocytes 0; Sodium 136 mmol/L (136-145)
[2023-06-10 05:29] LABS: Anion Gap 3 (5-15); Calcium 10.1 mg/dL (8.5-10.1); Carbon Dioxide 39 mmol/L (20-30)
[2023-06-10 05:34] LABS: BUN/Creatinine Ratio 33.7 (10.0-20.0); Blood Urea Nitrogen 31 mg/dL (9-23); Glucose 210 mg/dL (74-106)
[2023-06-10 08:09] LABS: Lymphocytes % (manual) 4 (10.0-50.0); Monocytes % (manual) 3 (0-12); Platelet Estimate Adequate
[2023-06-10] MEDS: BUDESONIDE (INHALATION) 0.5 MG/2 ML NEB NEB SCH ×2 (10:36→22:15)
[2023-06-10] MEDS: ENOXAPARIN SOD 40 MG/0.4 ML SYRINGE SC SCH (10:39)
[2023-06-10] MEDS: DOCUSATE ORAL LIQUID 100 MG/10 ML UD GT SCH ×2 (10:39→21:20)
[2023-06-10] MEDS: methylPREDNISolone SOD SUCC 40 MG/ML VL IV SCH ×2 (10:40→21:20)
[2023-06-10] MEDS: CHOLECALCIFEROL (VITD3) 2,000 UNIT CAP/TAB PO SCH (10:40)
[2023-06-10] MEDS: FUROSEMIDE 20 MG/2 ML VIAL IV SCH (10:40)
[2023-06-10] MEDS: Ensure Enlive Strawberry 8oz Bottle PO SCH ×3 (10:40→18:18)
[2023-06-10] MEDS: ALPRAZolam 0.5 MG TAB PO PRN (21:20)
[2023-06-11] VITALS (39 sets, daily range): BP systolic 111–149; BP diastolic 63–95; PULSE 95–117; RESP 13–28; TEMP 98.1–100.4; O2SAT 85–99
[2023-06-11] MEDS: IPRATROPIUM BROM 0.5 MG/2.5ML INH SOL NEB SCH ×6 (02:45→22:06)
[2023-06-11] MEDS: LEVALBUTEROL HCL 1.25 MG/3 ML NEB NEB SCH ×6 (02:45→22:06)
[2023-06-11 04:57] LABS: Eosinophils # (auto) 0 10 ^3/uL (0-0.8); Lymphocytes # (auto) 0.3 10 ^3/uL (0.4-5.4); Mean Corpuscular Hgb Conc. 31.4 g/dL (32.0-36.0); Monocytes # (auto) 0.6 10 ^3/uL (0-1.3)
[2023-06-11 05:00] LABS: Basophils # (auto) 0.1 10 ^3/uL (0-0.2); Basophils % (auto) 0.2 % (0.0-2.0); Hemoglobin 18.5 g/dL (12.2-16.2); Lymphocytes % (auto) 1.3 % (10.0-50.0); Monocytes % (auto) 2.5 % (0.0-12.0); Neutrophils # (auto) 23.2 10 ^3/uL (1.6-8.6); Nucleated Red Blood Cells % 0.1 %; Red Blood Cells 7.11 10^6/uL (4.0-5.20); Red Cell Distribution Width 16.6 % (11.8-14.3); White Blood Cell 24.2 10^3/uL (4.4-10.8)
[2023-06-11 05:02] LABS: Anion Gap 3 (5-15); Carbon Dioxide 38 mmol/L (20-30); Chloride 95 mmol/L (98-107); Potassium 4.7 mmol/L (3.5-5.1); Sodium 136 mmol/L (136-145)
[2023-06-11 05:04] LABS: Calcium 9.7 mg/dL (8.7-10.4)
[2023-06-11 05:08] LABS: Glucose 213 mg/dL (74-106)
[2023-06-11 05:09] LABS: BUN/Creatinine Ratio 30.7 (10.0-20.0); Blood Urea Nitrogen 27 mg/dL (9-23)
[2023-06-11] MEDS: BUDESONIDE (INHALATION) 0.5 MG/2 ML NEB NEB SCH ×2 (06:27→22:06)
[2023-06-11] MEDS: Ensure Enlive Strawberry 8oz Bottle PO SCH ×3 (09:18→18:25)
[2023-06-11] MEDS: ENOXAPARIN SOD 40 MG/0.4 ML SYRINGE SC SCH (10:00)
[2023-06-11] MEDS: CHOLECALCIFEROL (VITD3) 2,000 UNIT CAP/TAB PO SCH (10:00)
[2023-06-11] MEDS: FUROSEMIDE 20 MG/2 ML VIAL IV SCH (10:00)
[2023-06-11] MEDS: DOCUSATE ORAL LIQUID 100 MG/10 ML UD GT SCH ×3 (10:00→21:29)
[2023-06-11] MEDS: methylPREDNISolone SOD SUCC 40 MG/ML VL IV SCH (10:00)
[2023-06-11 11:01] LABS: Base Excess 17.5 mmol/L (-2.0-2.0)
[2023-06-11] MEDS: ALPRAZolam 0.5 MG TAB PO PRN (21:20)
[2023-06-12] VITALS (36 sets, daily range): BP systolic 118–156; BP diastolic 62–86; PULSE 86–124; RESP 13–27; TEMP 97.3–99.3; O2SAT 84–97
[2023-06-12] MEDS: IPRATROPIUM BROM 0.5 MG/2.5ML INH SOL NEB SCH ×6 (02:17→22:10)
[2023-06-12] MEDS: LEVALBUTEROL HCL 1.25 MG/3 ML NEB NEB SCH ×6 (02:17→22:10)
[2023-06-12 05:00] LABS: Basophils # (auto) 0 10 ^3/uL (0-0.2); Eosinophils # (auto) 0 10 ^3/uL (0-0.8); Mean Corpuscular Volume 82.4 fL (80.0-100.0)
[2023-06-12 05:02] LABS: Basophils % (auto) 0.1 % (0.0-2.0); Eosinophils % (auto) 0.1 % (0.0-7.0); Hemoglobin 18.6 g/dL (12.2-16.2); Lymphocytes # (auto) 0.8 10 ^3/uL (0.4-5.4); Lymphocytes % (auto) 3.9 % (10.0-50.0); Mean Corpuscular Hemoglobin 26.1 pg (28.0-32.0); Mean Corpuscular Hgb Conc. 31.7 g/dL (32.0-36.0); Monocytes % (auto) 4.6 % (0.0-12.0); Neutrophils # (auto) 20.1 10 ^3/uL (1.6-8.6); Neutrophils % (auto) 91.3 % (37.0-80.0); Nucleated Red Blood Cells % 0.2 %; Red Blood Cells 7.11 10^6/uL (4.0-5.20); Red Cell Distribution Width 16.8 % (11.8-14.3)
[2023-06-12 05:12] LABS: Chloride 95 mmol/L (98-107); Sodium 135 mmol/L (136-145)
[2023-06-12 05:13] LABS: Anion Gap 1 (5-15); Calcium 9.1 mg/dL (8.7-10.4); Carbon Dioxide 39 mmol/L (20-30)
[2023-06-12 05:15] LABS: Hematocrit 58.5 % (36.0-46.0)
[2023-06-12 05:18] LABS: BUN/Creatinine Ratio 30.9 (10.0-20.0); Blood Urea Nitrogen 25 mg/dL (9-23); Glucose 150 mg/dL (74-106)
[2023-06-12] MEDS: ACETAMINOPHEN 325 MG TAB PO PRN (05:34)
[2023-06-12] MEDS: BUDESONIDE (INHALATION) 0.5 MG/2 ML NEB NEB SCH ×2 (07:20→18:10)
[2023-06-12] MEDS: methylPREDNISolone SOD SUCC 40 MG/ML VL IV SCH (08:35)
[2023-06-12] MEDS: FUROSEMIDE 20 MG/2 ML VIAL IV SCH (08:36)
[2023-06-12] MEDS: DOCUSATE ORAL LIQUID 100 MG/10 ML UD GT SCH (08:36)
[2023-06-12] MEDS: ENOXAPARIN SOD 40 MG/0.4 ML SYRINGE SC SCH (08:36)
[2023-06-12] MEDS: CHOLECALCIFEROL (VITD3) 2,000 UNIT CAP/TAB PO SCH (08:36)
[2023-06-12] MEDS: Ensure Enlive Strawberry 8oz Bottle PO SCH ×3 (08:48→18:41)
[2023-06-12] MEDS ORDERED: dilTIAZem HCL 180MG ER CAP PO ONE (10:15)
[2023-06-12] MEDS: DOCUSATE ORAL LIQUID 100 MG/10 ML UD PO SCH (22:00)
[2023-06-12] MEDS: ALPRAZolam 0.5 MG TAB PO PRN (22:25)
[2023-06-13] VITALS (15 sets, daily range): BP systolic 121–147; BP diastolic 76–92; PULSE 90–106; RESP 17–26; TEMP 97.9–98.3; O2SAT 89–97
[2023-06-13] MEDS: LEVALBUTEROL HCL 1.25 MG/3 ML NEB NEB SCH ×5 (02:07→18:00)
[2023-06-13] MEDS: IPRATROPIUM BROM 0.5 MG/2.5ML INH SOL NEB SCH ×5 (02:07→18:00)
[2023-06-13] MEDS ORDERED: LEVALBUTEROL HCL 1.25 MG/3 ML NEB ONE (06:10)
[2023-06-13] MEDS: BUDESONIDE (INHALATION) 0.5 MG/2 ML NEB NEB SCH (07:01)
[2023-06-13 07:33] LABS: Basophils # (auto) 0 10 ^3/uL (0-0.2); Basophils % (auto) 0.1 % (0.0-2.0); Eosinophils # (auto) 0 10 ^3/uL (0-0.8); Eosinophils % (auto) 0.1 % (0.0-7.0); Hemoglobin 18.4 g/dL (12.2-16.2); Monocytes # (auto) 1.1 10 ^3/uL (0-1.3); Red Cell Distribution Width 16.8 % (11.8-14.3)
[2023-06-13 07:34] LABS: Calcium 9.7 mg/dL (8.5-10.1); Chloride 93 mmol/L (98-107); Potassium 3.9 mmol/L (3.5-5.1); Sodium 136 mmol/L (136-145)
[2023-06-13 07:35] LABS: Anion Gap 7 (5-15); Carbon Dioxide 36 mmol/L (20-30)
[2023-06-13 07:41] LABS: BUN/Creatinine Ratio 31.9 (10.0-20.0); Blood Urea Nitrogen 30 mg/dL (9-23); Glucose 159 mg/dL (74-106)
[2023-06-13 07:42] LABS: Lymphocytes # (auto) 1.1 10 ^3/uL (0.4-5.4); Lymphocytes % (auto) 4.9 % (10.0-50.0); Mean Corpuscular Hgb Conc. 31.6 g/dL (32.0-36.0); Mean Corpuscular Volume 82.2 fL (80.0-100.0); Monocytes % (auto) 4.9 % (0.0-12.0); Neutrophils # (auto) 19.4 10 ^3/uL (1.6-8.6); Nucleated Red Blood Cells % 0.3 %; Red Blood Cells 7.07 10^6/uL (4.0-5.20); White Blood Cell 21.6 10^3/uL (4.4-10.8)
[2023-06-13 07:51] LABS: Hematocrit 58.1 % (36.0-46.0)
[2023-06-13] MEDS: DOCUSATE ORAL LIQUID 100 MG/10 ML UD PO SCH (09:16)
[2023-06-13] MEDS: CHOLECALCIFEROL (VITD3) 2,000 UNIT CAP/TAB PO SCH (09:17)
[2023-06-13] MEDS: ENOXAPARIN SOD 40 MG/0.4 ML SYRINGE SC SCH (09:18)
[2023-06-13] MEDS: methylPREDNISolone SOD SUCC 40 MG/ML VL IV SCH (09:18)
[2023-06-13] MEDS: FUROSEMIDE 20 MG/2 ML VIAL IV SCH (09:19)
[2023-06-13] MEDS: Ensure Enlive Strawberry 8oz Bottle PO SCH ×2 (09:20→12:00)
[2023-06-13] MEDS ORDERED: dilTIAZem HCL 180MG ER CAP PO SCH (10:00)
[2023-06-13] MEDS: ALBUTEROL SULF 2.5 MG/0.5ML(0.5%) NEB SOLN NEB PRN (10:23)
[2023-06-13] MEDS ORDERED: FURO1TAB31 PO (10:59)
[2023-06-13] MEDS ORDERED: DILT-102 PO (10:59)
== END 2023-06-13 18:57 | disposition home health service (06) | DRG 208 ==
LOC: EDBD 04:10 → ER 04:10 → TELE 05:50 → TELE-WESTW 22:00 → DOU IN ICU 06-01 15:35 → TELE-WESTW 06-12 21:19
PROVIDERS: ADMIT Hospitalist; ATTEND Internal Medicine Pulmonary Disease
PROC: 5A1935Z Respiratory Ventilation, Less than 24 Consecutive Hours (ICD-10-PCS; 2023-05-30)
PROC: 5A1935Z Respiratory Ventilation, Less than 24 Consecutive Hours (ICD-10-PCS; 2023-05-31)
PROC: 05H933Z Insertion of Infusion Device into Right Brachial Vein, Percutaneous Approach (ICD-10-PCS; principal; 2023-06-01)
PROC: B54MZZA Ultrasonography of Right Upper Extremity Veins, Guidance (ICD-10-PCS; 2023-06-01)
PROC: 5A1935Z Respiratory Ventilation, Less than 24 Consecutive Hours (ICD-10-PCS; 2023-06-01)
PROC: 5A1935Z Respiratory Ventilation, Less than 24 Consecutive Hours (ICD-10-PCS; 2023-06-02)
PROC: 5A1935Z Respiratory Ventilation, Less than 24 Consecutive Hours (ICD-10-PCS; 2023-06-03)
PROC: 5A0935A Assistance with Respiratory Ventilation, Less than 24 Consecutive Hours, High Flow/Velocity Cannula (ICD-10-PCS; 2023-06-03)
PROC: 5A1935Z Respiratory Ventilation, Less than 24 Consecutive Hours (ICD-10-PCS; 2023-06-04)
PROC: 5A0935A Assistance with Respiratory Ventilation, Less than 24 Consecutive Hours, High Flow/Velocity Cannula (ICD-10-PCS; 2023-06-04)
PROC: 5A1935Z Respiratory Ventilation, Less than 24 Consecutive Hours (ICD-10-PCS; 2023-06-05)
PROC: 5A0935A Assistance with Respiratory Ventilation, Less than 24 Consecutive Hours, High Flow/Velocity Cannula (ICD-10-PCS; 2023-06-05)
PROC: 5A1935Z Respiratory Ventilation, Less than 24 Consecutive Hours (ICD-10-PCS; 2023-06-06)
PROC: 5A0935A Assistance with Respiratory Ventilation, Less than 24 Consecutive Hours, High Flow/Velocity Cannula (ICD-10-PCS; 2023-06-06)
PROC: 5A1935Z Respiratory Ventilation, Less than 24 Consecutive Hours (ICD-10-PCS; 2023-06-07)
PROC: 5A0935A Assistance with Respiratory Ventilation, Less than 24 Consecutive Hours, High Flow/Velocity Cannula (ICD-10-PCS; 2023-06-07)
PROC: 5A1935Z Respiratory Ventilation, Less than 24 Consecutive Hours (ICD-10-PCS; 2023-06-08)
PROC: 5A0935A Assistance with Respiratory Ventilation, Less than 24 Consecutive Hours, High Flow/Velocity Cannula (ICD-10-PCS; 2023-06-08)
PROC: 5A1935Z Respiratory Ventilation, Less than 24 Consecutive Hours (ICD-10-PCS; 2023-06-09)
PROC: 5A0935A Assistance with Respiratory Ventilation, Less than 24 Consecutive Hours, High Flow/Velocity Cannula (ICD-10-PCS; 2023-06-09)
PROC: 5A1935Z Respiratory Ventilation, Less than 24 Consecutive Hours (ICD-10-PCS; 2023-06-10)
PROC: 5A1935Z Respiratory Ventilation, Less than 24 Consecutive Hours (ICD-10-PCS; 2023-06-11)
PROC: 5A1935Z Respiratory Ventilation, Less than 24 Consecutive Hours (ICD-10-PCS; 2023-06-12)
PROC: 5A1935Z Respiratory Ventilation, Less than 24 Consecutive Hours (ICD-10-PCS; 2023-06-13)
DX: J18.9 Pneumonia, unspecified organism (principal); I50.33 Acute on chronic diastolic (congestive) heart failure; J96.21 Acute and chronic respiratory failure with hypoxia; J96.22 Acute and chronic respiratory failure with hypercapnia; J44.0 Chronic obstructive pulmonary disease with (acute) lower respiratory infection; J44.1 Chronic obstructive pulmonary disease with (acute) exacerbation; I48.20 Chronic atrial fibrillation, unspecified; J98.11 Atelectasis; E78.5 Hyperlipidemia, unspecified; F32.A Depression, unspecified; F41.9 Anxiety disorder, unspecified; G89.4 Chronic pain syndrome; I27.20 Pulmonary hypertension, unspecified; Z20.822 Contact with and (suspected) exposure to COVID-19; F17.200 Nicotine dependence, unspecified, uncomplicated; D75.1 Secondary polycythemia; I11.0 Hypertensive heart disease with heart failure; E66.9 Obesity, unspecified; Z88.5 Allergy status to narcotic agent; Z82.49 Family history of ischemic heart disease and other diseases of the circulatory system; Z68.38 Body mass index [BMI] 38.0-38.9, adult
CPT/HCPCS: 36415; 36600; 71045; 71250; 78582; 80048; 80053; 81001; 82805; 82962; 83605; 83735; 83880; 84484; 85007; 85025; 85027; 85379; 85652; 86141; 87040; 87081; 87426; 87804; 93005; 93306; 93970; 94640; 94660; 96365; 96375; 97110; 97116; 97163; G0378; J0696; Q9956

== ENCOUNTER → 2023-06-24 | Outpatient (CLI) | payer OTHER ==
[~2023-06-24] MED LIST: ALBU108A5 INH; AMLO1TAB22 PO; ATOR10TA52 PO; BUPR-60 PO; DILT-102 PO; FLUT50SP NAS; FURO1TAB31 PO; HYDR-4798; HYDR25TA5 PO; IPRA0.00; LOSA50TA46 PO; MET25T PO; PRED20TA2 PO; SIMV10TA20 PO; TEMA15CA2 PO; UMEC1AER
[2023-06-24 08:24] LABS: Basophils # (auto) 0.1 10 ^3/uL (0-0.2); Eosinophils # (auto) 0 10 ^3/uL (0-0.8); Lymphocytes # (auto) 0.6 10 ^3/uL (0.4-5.4); Lymphocytes % (auto) 4.4 % (10.0-50.0)
[2023-06-24 08:27] LABS: Basophils % (auto) 0.9 % (0.0-2.0); Hematocrit 48.5 % (36.0-46.0); Hemoglobin 15.5 g/dL (12.2-16.2); Mean Corpuscular Hemoglobin 26.2 pg (28.0-32.0); Mean Corpuscular Volume 81.9 fL (80.0-100.0); Monocytes # (auto) 0.6 10 ^3/uL (0-1.3); Monocytes % (auto) 4.7 % (0.0-12.0); Neutrophils # (auto) 12.5 10 ^3/uL (1.6-8.6); Red Blood Cells 5.92 10^6/uL (4.0-5.20); Red Cell Distribution Width 18.1 % (11.8-14.3); White Blood Cell 13.9 10^3/uL (4.4-10.8)
[2023-06-24 08:55] LABS: Chloride 96 mmol/L (98-107); Potassium 3.4 mmol/L (3.5-5.1); Sodium 136 mmol/L (136-145)
[2023-06-24 08:56] LABS: Anion Gap 9 (5-15); Calcium 10.4 mg/dL (8.5-10.1); Carbon Dioxide 31 mmol/L (20-30)
[2023-06-24 09:01] LABS: Blood Urea Nitrogen 33 mg/dL (9-23); Glucose 155 mg/dL (74-106)
== END | disposition home or self-care (01) ==
LOC: LAB 08:06
PROVIDERS: ATTEND Internal Medicine
DX: J44.9 Chronic obstructive pulmonary disease, unspecified (principal); I11.9 Hypertensive heart disease without heart failure
CPT/HCPCS: 36415; 80048; 83880; 85025

== ENCOUNTER → 2023-07-01 | Outpatient (CLI) | payer OTHER ==
[2023-07-01 09:19] LABS: Mean Corpuscular Hemoglobin 26.6 pg (28.0-32.0)
[2023-07-01 09:20] LABS: Hematocrit 46.7 % (36.0-46.0); Hemoglobin 15.2 g/dL (12.2-16.2); Mean Corpuscular Hgb Conc. 32.6 g/dL (32.0-36.0); Mean Corpuscular Volume 81.8 fL (80.0-100.0); Red Blood Cells 5.72 10^6/uL (4.0-5.20); Red Cell Distribution Width 19.5 % (11.8-14.3); White Blood Cell 9.8 10^3/uL (4.4-10.8)
[2023-07-01 09:29] LABS: Band Neutrophils % (manual) 0; Basophils % (manual) 0 (0.0-2.0); Blast Cells 0; Myelocytes % 0; Promyelocytes % 0; Reactive Lymphocytes 0
[2023-07-01 09:41] LABS: Albumin 3.9 g/dL (3.2-4.8); Bilirubin, Direct 0.3 mg/dL (<0.3); Bilirubin, Total 0.9 mg/dL (0.2-1.0); Total Protein 6.1 g/dL (5.7-8.2)
[2023-07-01 12:38] LABS: Eosinophils % (manual) 1 (0-7); Lymphocytes % (manual) 18 (10.0-50.0); Metamyelocytes % 3; Monocytes % (manual) 7 (0-12)
[2023-07-01 12:39] LABS: Platelet Estimate Increased
== END | disposition home or self-care (01) ==
LOC: LAB 09:04
PROVIDERS: ATTEND Internal Medicine
DX: I11.9 Hypertensive heart disease without heart failure (principal); J44.9 Chronic obstructive pulmonary disease, unspecified
CPT/HCPCS: 36415; 80076; 83880; 85007; 85027

== ENCOUNTER 2023-07-10 13:26 | Emergency (ER) | payer OTHER ==
[~2023-07-10] VITALS: Ht 170.2 cm; Wt 100.0 kg
[2023-07-10 14:37] LABS: Eosinophils # (auto) 0 10 ^3/uL (0-0.8); Mean Corpuscular Volume 82.6 fL (80.0-100.0); White Blood Cell 16.3 10^3/uL (4.4-10.8)
[2023-07-10 14:38] LABS: Basophils # (auto) 0.1 10 ^3/uL (0-0.2); Basophils % (auto) 0.4 % (0.0-2.0); Hematocrit 46.3 % (36.0-46.0); Hemoglobin 15.1 g/dL (12.2-16.2); Lymphocytes # (auto) 1.2 10 ^3/uL (0.4-5.4); Lymphocytes % (auto) 7.6 % (10.0-50.0); Mean Corpuscular Hemoglobin 26.9 pg (28.0-32.0); Mean Corpuscular Hgb Conc. 32.5 g/dL (32.0-36.0); Monocytes # (auto) 0.5 10 ^3/uL (0-1.3); Monocytes % (auto) 3.4 % (0.0-12.0); Neutrophils # (auto) 14.5 10 ^3/uL (1.6-8.6); Neutrophils % (auto) 88.6 % (37.0-80.0); Nucleated Red Blood Cells % 0.1 %; Red Blood Cells 5.61 10^6/uL (4.0-5.20)
[2023-07-10 14:43] LABS: Chloride 99 mmol/L (98-107); Potassium 3.4 mmol/L (3.5-5.1); Sodium 135 mmol/L (136-145)
[2023-07-10 14:44] LABS: Anion Gap 9 (5-15); Calcium 9.4 mg/dL (8.5-10.1); Carbon Dioxide 27 mmol/L (20-30)
[2023-07-10 14:48] LABS: Basophils % (manual) 0 (0.0-2.0); Blast Cells 0; Eosinophils % (manual) 0 (0-7); Metamyelocytes % 0; Myelocytes % 0; Promyelocytes % 0; Reactive Lymphocytes 0
[2023-07-10 14:49] LABS: BUN/Creatinine Ratio 13.9 (10.0-20.0); Blood Urea Nitrogen 11 mg/dL (9-23); Glucose 111 mg/dL (74-106)
[2023-07-10 16:06] LABS: Erythrocyte Sedimentation Rate 8 mm/hr (0-20)
[2023-07-10 17:13] LABS: Band Neutrophils % (manual) 2; Lymphocytes % (manual) 11 (10.0-50.0); Monocytes % (manual) 5 (0-12); Platelet Estimate Increased
[2023-07-10] MEDS: FUROSEMIDE 100 MG/10ML VIAL IV ONE (17:25)
[2023-07-10 19:05] VITALS: BP 92/79; PULSE 103; RESP 20; O2SAT 98
== END 2023-07-10 19:07 | disposition home or self-care (01) ==
LOC: ER 13:26
DX: R60.0 Localized edema (principal); I11.0 Hypertensive heart disease with heart failure; I50.9 Heart failure, unspecified; J44.9 Chronic obstructive pulmonary disease, unspecified; Z88.8 Allergy status to other drugs, medicaments and biological substances; Z79.899 Other long term (current) drug therapy
CPT/HCPCS: 36415; 80048; 83605; 83880; 84484; 85025; 85652; 86141; 87040; 93970; 96374; 99285; J1940

== ENCOUNTER → 2023-07-15 | Outpatient (CLI) | payer OTHER ==
[2023-07-15 09:34] LABS: Basophils # (auto) 0.1 10 ^3/uL (0-0.2); Basophils % (auto) 0.6 % (0.0-2.0); Eosinophils # (auto) 0 10 ^3/uL (0-0.8); Eosinophils % (auto) 0.2 % (0.0-7.0); Hematocrit 44.4 % (36.0-46.0); Hemoglobin 14.2 g/dL (12.2-16.2); Lymphocytes # (auto) 1.7 10 ^3/uL (0.4-5.4); Lymphocytes % (auto) 14.8 % (10.0-50.0); Mean Corpuscular Hemoglobin 26.6 pg (28.0-32.0); Monocytes # (auto) 0.6 10 ^3/uL (0-1.3); Monocytes % (auto) 5.3 % (0.0-12.0); Neutrophils # (auto) 8.9 10 ^3/uL (1.6-8.6); Neutrophils % (auto) 79.1 % (37.0-80.0); Red Blood Cells 5.35 10^6/uL (4.0-5.20); Red Cell Distribution Width 19.9 % (11.8-14.3); White Blood Cell 11.3 10^3/uL (4.4-10.8)
[2023-07-15 10:19] LABS: Anion Gap 7 (5-15); Carbon Dioxide 32 mmol/L (20-30); Chloride 102 mmol/L (98-107); Potassium 2.8 mmol/L (3.5-5.1); Sodium 141 mmol/L (136-145)
[2023-07-15 10:21] LABS: Calcium 9.9 mg/dL (8.5-10.1)
[2023-07-15 10:25] LABS: BUN/Creatinine Ratio 14.3 (10.0-20.0); Blood Urea Nitrogen 10 mg/dL (9-23); Glucose 101 mg/dL (74-106)
== END | disposition home or self-care (01) ==
LOC: LAB 09:23
PROVIDERS: ATTEND Internal Medicine
DX: J44.9 Chronic obstructive pulmonary disease, unspecified (principal); D72.819 Decreased white blood cell count, unspecified
CPT/HCPCS: 36415; 80048; 85025

== ENCOUNTER → 2023-09-30 | Outpatient (CLI) | payer OTHER ==
[~2023-09-30] MED LIST changes: +LOSA-534 PO; -LOSA50TA46 PO
[2023-09-30 07:26] LABS: Basophils # (auto) 0.1 10 ^3/uL (0-0.2); Monocytes # (auto) 0.4 10 ^3/uL (0-1.3); Red Cell Distribution Width 16.8 % (11.8-14.3)
[2023-09-30 07:28] LABS: Eosinophils # (auto) 0.3 10 ^3/uL (0-0.8); Eosinophils % (auto) 2.1 % (0.0-7.0); Hematocrit 50.1 % (36.0-46.0); Hemoglobin 15.8 g/dL (12.2-16.2); Lymphocytes % (auto) 23.2 % (10.0-50.0); Mean Corpuscular Hgb Conc. 31.5 g/dL (32.0-36.0); Mean Corpuscular Volume 85.7 fL (80.0-100.0); Monocytes % (auto) 3.4 % (0.0-12.0); Neutrophils % (auto) 70.3 % (37.0-80.0); Nucleated Red Blood Cells % 0.3 %; Red Blood Cells 5.85 10^6/uL (4.0-5.20); White Blood Cell 12.9 10^3/uL (4.4-10.8)
== END | disposition home or self-care (01) ==
LOC: LAB 07:16
PROVIDERS: ATTEND Internal Medicine
DX: J44.9 Chronic obstructive pulmonary disease, unspecified (principal)
CPT/HCPCS: 36415; 85025

== ENCOUNTER → 2023-10-21 | Outpatient (CLI) | payer OTHER ==
[~2023-10-21] MED LIST changes: +ALBUTEROL SULF 2.5 MG/0.5ML(0.5%) NEB SOLN ONE
== END | disposition home or self-care (01) ==
LOC: XYW 09:14
PROVIDERS: ATTEND Internal Medicine Pulmonary Disease
DX: J44.9 Chronic obstructive pulmonary disease, unspecified (principal); I51.89 Other ill-defined heart diseases; I27.20 Pulmonary hypertension, unspecified
CPT/HCPCS: 93306; 94060; 94727; 94729

== ENCOUNTER → 2023-11-17 | Outpatient (CLI) | payer OTHER ==
[~2023-11-17] MED LIST changes: -ALBUTEROL SULF 2.5 MG/0.5ML(0.5%) NEB SOLN ONE
[2023-11-17 08:20] LABS: Basophils # (auto) 0.1 10 ^3/uL (0-0.2); Eosinophils # (auto) 0.2 10 ^3/uL (0-0.8); Lymphocytes # (auto) 1.9 10 ^3/uL (0.4-5.4); Lymphocytes % (auto) 18.5 % (10.0-50.0); Nucleated Red Blood Cells % 0.2 %
[2023-11-17 08:23] LABS: Eosinophils % (auto) 1.6 % (0.0-7.0); Hemoglobin 16.5 g/dL (12.2-16.2); Mean Corpuscular Hemoglobin 27.4 pg (28.0-32.0); Mean Corpuscular Hgb Conc. 31.8 g/dL (32.0-36.0); Mean Corpuscular Volume 86.2 fL (80.0-100.0); Monocytes # (auto) 0.5 10 ^3/uL (0-1.3); Monocytes % (auto) 4.9 % (0.0-12.0); Neutrophils # (auto) 7.8 10 ^3/uL (1.6-8.6); Red Blood Cells 6.03 10^6/uL (4.0-5.20); Red Cell Distribution Width 18.5 % (11.8-14.3); White Blood Cell 10.5 10^3/uL (4.4-10.8)
[2023-11-17 08:44] LABS: Alanine Aminotransferase < 9 U/L (7-40); Albumin 4.1 g/dL (3.2-4.8); Alkaline Phosphatase 84 U/L (46-116); Anion Gap 4 (5-15); Aspartate Aminotransferase 12 U/L (13-40); BUN/Creatinine Ratio 16.9 (10.0-20.0); Blood Urea Nitrogen 13 mg/dL (9-23); Calcium 9.8 mg/dL (8.5-10.1); Carbon Dioxide 30 mmol/L (20-30); Chloride 104 mmol/L (98-107); Cholesterol 176 mg/dL (< 200); Glucose 110 mg/dL (74-106); HDL Cholesterol 45 mg/dL (40-59); LDL Cholesterol 120 mg/dL (< 100); Sodium 138 mmol/L (136-145); Triglycerides 126 mg/dL (< 150)
[2023-11-17 08:45] LABS: Bilirubin, Total 0.6 mg/dL (0.2-1.0)
[2023-11-17 08:49] LABS: Thyroid Stimulating Hormone 1.56 uIU/mL (0.55-4.78)
[2023-11-17 10:25] LABS: % Iron Saturation 22.6 % (15-50)
== END | disposition home or self-care (01) ==
LOC: LAB 07:55
PROVIDERS: ATTEND Internal Medicine
DX: D72.829 Elevated white blood cell count, unspecified (principal); D75.839 Thrombocytosis, unspecified; D45 Polycythemia vera
CPT/HCPCS: 36415; 80053; 80061; 82728; 83036; 83540; 83550; 83615; 84443; 85025

== ENCOUNTER → 2024-01-05 | Outpatient (CLI) | payer OTHER ==
[2024-01-05 07:52] LABS: Alanine Aminotransferase 12 U/L (7-40); Albumin 4.1 g/dL (3.2-4.8); Alkaline Phosphatase 93 U/L (46-116); Aspartate Aminotransferase 16 U/L (13-40); BUN/Creatinine Ratio 21.5 (10.0-20.0); Blood Urea Nitrogen 20 mg/dL (9-23); Carbon Dioxide 35 mmol/L (20-30); Chloride 103 mmol/L (98-107); Glucose 117 mg/dL (74-106); Sodium 137 mmol/L (136-145)
[2024-01-05 07:53] LABS: Bilirubin, Total 0.6 mg/dL (0.2-1.0); Total Protein 7.2 g/dL (5.7-8.2)
[2024-01-05 07:55] LABS: Anion Gap -1 (5-15)
== END | disposition home or self-care (01) ==
LOC: LAB 06:03
PROVIDERS: ATTEND Internal Medicine
DX: J44.9 Chronic obstructive pulmonary disease, unspecified (principal)
CPT/HCPCS: 36415; 80053

== ENCOUNTER → 2024-02-16 | Outpatient (CLI) | payer OTHER ==
[2024-02-16 09:49] LABS: Basophils # (auto) 0.1 10 ^3/uL (0-0.2); Basophils % (auto) 0.9 % (0.0-2.0); Eosinophils # (auto) 0.1 10 ^3/uL (0-0.8); Eosinophils % (auto) 1.1 % (0.0-7.0); Hematocrit 46.5 % (36.0-46.0); Lymphocytes # (auto) 1.4 10 ^3/uL (0.4-5.4); Lymphocytes % (auto) 16.2 % (10.0-50.0); Mean Corpuscular Hemoglobin 32.4 pg (28.0-32.0); Mean Corpuscular Hgb Conc. 34.4 g/dL (32.0-36.0); Mean Corpuscular Volume 94.1 fL (80.0-100.0); Monocytes # (auto) 0.5 10 ^3/uL (0-1.3); Monocytes % (auto) 6.2 % (0.0-12.0); Neutrophils # (auto) 6.7 10 ^3/uL (1.6-8.6); Neutrophils % (auto) 75.6 % (37.0-80.0); Platelet Count (auto) 501 10^3/uL (140-450); Red Blood Cells 4.94 10^6/uL (4.0-5.20); Red Cell Distribution Width 17.9 % (11.8-14.3); White Blood Cell 8.8 10^3/uL (4.4-10.8)
[2024-02-16 10:22] LABS: Alanine Aminotransferase 14 U/L (7-40); Alkaline Phosphatase 85 U/L (46-116); Anion Gap 6 (5-15); BUN/Creatinine Ratio 15.5 (10.0-20.0); Blood Urea Nitrogen 13 mg/dL (9-23); Calcium 10.1 mg/dL (8.7-10.4); Carbon Dioxide 33 mmol/L (20-31); Chloride 102 mmol/L (98-107); Glucose 113 mg/dL (74-106); Potassium 3.8 mmol/L (3.5-5.1); Sodium 141 mmol/L (136-145)
[2024-02-16 10:23] LABS: Albumin 4.3 g/dL (3.2-4.8); Aspartate Aminotransferase 17 U/L (13-40)
[2024-02-16 10:24] LABS: Total Protein 7.2 g/dL (5.7-8.2)
[2024-02-16 10:34] LABS: % Iron Saturation 32.5 % (15-50)
[2024-02-16 14:06] LABS: Triglycerides 113 mg/dL (< 150)
[2024-02-16 14:07] LABS: LDL Cholesterol 120 mg/dL (< 100)
[2024-02-16 14:08] LABS: Cholesterol 181 mg/dL (< 200); HDL Cholesterol 46 mg/dL (40-59)
[2024-02-17 08:06] LABS: Immunoglobulin A 198 mg/dL (87-352)
[2024-02-19 05:08] LABS: Endomysial IgA Antibody Negative (Negative)
== END | disposition home or self-care (01) ==
LOC: LAB 09:23
PROVIDERS: ATTEND Nurse Practitioner
DX: D72.829 Elevated white blood cell count, unspecified (principal); D75.839 Thrombocytosis, unspecified; D45 Polycythemia vera
CPT/HCPCS: 36415; 80053; 80061; 82607; 82728; 82784; 83516; 83540; 83550; 83615; 85025; 86255; 86704; 86706; 86708; 86803; 87340

== ENCOUNTER → 2024-06-22 | Outpatient (CLI) | payer OTHER ==
[2024-06-22 08:30] LABS: Basophils # (auto) 0.1 10 ^3/uL (0-0.2); Eosinophils # (auto) 0.2 10 ^3/uL (0-0.8); Monocytes # (auto) 0.6 10 ^3/uL (0-1.3)
[2024-06-22 08:32] LABS: Basophils % (auto) 0.6 % (0.0-2.0); Eosinophils % (auto) 1.5 % (0.0-7.0); Hematocrit 55.2 % (36.0-46.0); Hemoglobin 17.7 g/dL (12.2-16.2); Lymphocytes # (auto) 2.1 10 ^3/uL (0.4-5.4); Lymphocytes % (auto) 14.4 % (10.0-50.0); Mean Corpuscular Hemoglobin 25.3 pg (28.0-32.0); Mean Corpuscular Volume 79.1 fL (80.0-100.0); Monocytes % (auto) 4.5 % (0.0-12.0); Neutrophils # (auto) 11.3 10 ^3/uL (1.6-8.6); Platelet Count (auto) 699 10^3/uL (140-450); Red Blood Cells 6.97 10^6/uL (4.0-5.20); Red Cell Distribution Width 17.1 % (11.8-14.3); White Blood Cell 14.3 10^3/uL (4.4-10.8)
[2024-06-22 09:05] LABS: Alanine Aminotransferase 15 U/L (7-40); Alkaline Phosphatase 103 U/L (46-116); Anion Gap 9 (5-15); Carbon Dioxide 30 mmol/L (20-31); Chloride 101 mmol/L (98-107); Potassium 3.6 mmol/L (3.5-5.1); Sodium 140 mmol/L (136-145)
[2024-06-22 09:06] LABS: BUN/Creatinine Ratio 19.2 (10.0-20.0); Blood Urea Nitrogen 20 mg/dL (9-23); Glucose 98 mg/dL (74-106)
[2024-06-22 09:08] LABS: Albumin 4.3 g/dL (3.2-4.8); Aspartate Aminotransferase 14 U/L (13-40)
[2024-06-22 09:09] LABS: Bilirubin, Total 0.4 mg/dL (0.2-1.0); Total Protein 7.6 g/dL (5.7-8.2)
[2024-06-22 11:32] LABS: Large Platelets MODERATE; Platelet Estimate Increased
== END | disposition home or self-care (01) ==
LOC: LAB 08:05
PROVIDERS: ATTEND Internal Medicine
DX: J44.9 Chronic obstructive pulmonary disease, unspecified (principal); E72.50 Disorder of glycine metabolism, unspecified
CPT/HCPCS: 36415; 80053; 82306; 83036; 85025

== ENCOUNTER → 2024-06-29 | Outpatient (CLI) | payer OTHER ==
[2024-06-29 14:52] LABS: Lipase 34 U/L (12-53)
[2024-06-29 14:53] LABS: Amylase 102 U/L (30-118)
== END | disposition home or self-care (01) ==
LOC: LAB 14:00
PROVIDERS: ATTEND Internal Medicine
DX: Z12.11 Encounter for screening for malignant neoplasm of colon (principal); R10.9 Unspecified abdominal pain
CPT/HCPCS: 36415; 82150; 83690

== ENCOUNTER → 2024-07-20 | Outpatient (CLI) | payer OTHER ==
[2024-07-20 14:16] LABS: Eosinophils # (auto) 0.2 10 ^3/uL (0-0.8)
[2024-07-20 14:18] LABS: Monocytes # (auto) 0.6 10 ^3/uL (0-1.3); Red Cell Distribution Width 17.4 % (11.8-14.3)
[2024-07-20 14:54] LABS: Alanine Aminotransferase 21 U/L (7-40); Albumin 4.6 g/dL (3.2-4.8); Anion Gap 8 (5-15); Aspartate Aminotransferase 25 U/L (13-40); Chloride 103 mmol/L (98-107); Potassium 4.1 mmol/L (3.5-5.1); Sodium 142 mmol/L (136-145)
[2024-07-20 14:55] LABS: Bilirubin, Total 0.7 mg/dL (0.2-1.0)
[2024-07-20 14:57] LABS: Glucose 97 mg/dL (74-106)
[2024-07-20 15:08] LABS: Calcium 10.7 mg/dL (8.7-10.4); Carbon Dioxide 31 mmol/L (20-31)
[2024-07-20 15:15] LABS: Basophils # (auto) 0.2 10 ^3/uL (0-0.2); Basophils % (auto) 1.3 % (0.0-2.0); Eosinophils % (auto) 1.2 % (0.0-7.0); Hematocrit 54.5 % (36.0-46.0); Hemoglobin 17.3 g/dL (12.2-16.2); Lymphocytes % (auto) 13.8 % (10.0-50.0); Mean Corpuscular Hemoglobin 24.2 pg (28.0-32.0); Mean Corpuscular Hgb Conc. 31.7 g/dL (32.0-36.0); Mean Corpuscular Volume 76.3 fL (80.0-100.0); Monocytes % (auto) 4.4 % (0.0-12.0); Neutrophils # (auto) 11.3 10 ^3/uL (1.6-8.6); Neutrophils % (auto) 79.3 % (37.0-80.0); Nucleated Red Blood Cells % 0.9 %; Platelet Count (auto) 627 10^3/uL (140-450); Red Blood Cells 7.14 10^6/uL (4.0-5.20); White Blood Cell 14.3 10^3/uL (4.4-10.8)
[2024-07-20 15:22] LABS: Alkaline Phosphatase 101 U/L (46-116)
[2024-07-20 15:33] LABS: Giant Platelets Few; Large Platelets FEW
[2024-07-20 15:34] LABS: Platelet Estimate Increa
[2024-07-20 15:59] LABS: BUN/Creatinine Ratio 15.7 (10.0-20.0); Blood Urea Nitrogen 17 mg/dL (9-23)
== END | disposition home or self-care (01) ==
LOC: LAB 13:54
PROVIDERS: ATTEND Internal Medicine
DX: I10 Essential (primary) hypertension (principal); J44.9 Chronic obstructive pulmonary disease, unspecified; D75.839 Thrombocytosis, unspecified
CPT/HCPCS: 36415; 80053; 85025

== ENCOUNTER 2024-08-11 20:30 | Inpatient (IN) | payer OTHER ==
[~2024-08-11] VITALS: Ht 170.2 cm; Wt 115.0 kg
--- NOTE | 2024-08-11 20:55 | ED.PDOC ---
SOB-HPI HPI Comments 69 year old female presents to the ED with a chief complaint of shortness of breath onset today. Patient states she has been experiencing shortness of breath, chest pain describes as a pressure sensation, elevated BP, LT arm numbness, anxiety. Patient has taken BP medication with no improvement and has used nebulizer without improvement of symptoms. She noticed symptoms worsen when she tries to walk. PMHx COPD, CHF, HTN. Denies nausea, vomiting, diarrhea, abdominal pain, dizziness, cough, congestion, fevers, chills. No other symptoms or modifying factors present at this time. Chief Complaint: Shortness of Breath Time Seen by MD: 20:45 Primary Care Provider: RANDY Reviewed notes: Medications, Allergies Information Source: Patient Mode of Arrival: Ambulatory Severity: Moderate Timing: Hours Duration: Since onset Context: At Rest PE Risk Factors: None History of: COPD, CHF Prehospital treatment: Breathing Tx Modifying Factors: Nothing Associated Signs and Symptoms: Chest Pain, Anxiety, Numbness (LT arm) Quality: Pressure Radiation: Arm (L) Location: Chest (L) Past Medical History PAST MEDICAL HISTORY: CHF, COPD, HTN Surgical History: Unknown GRADUATE ASSISTANT History: Denies all GRADUATE ASSISTANT Hx Family History Family History: Unknown Social History Smoker: Non-Smoker Alcohol: Denies ETOH Use Drugs: Denies Drug Use Lives In: Home Constitutional: denies: chills, diaphoresis, fatigue, fever, malaise, sweats, weakness, others EENTM: denies: blurred vision, double vision, ear bleeding, ear discharge, ear drainage, ear pain, ear ringing, eye pain, eye redness, hearing loss, mouth pain, mouth swelling, nasal discharge, nose bleeding, nose congestion, nose pain, photophobia, tearing, throat pain, throat swelling, voice changes, others Respiratory: reports: shortness of breath; denies: cough, hemoptysis, orthopnea, SOB at rest, SOB with excertion, stridor, wheezing, others Cardiovascular: reports: chest pain; denies: dizzy spells, diaphoresis, Dyspnea on exertion, edema, irregular heart beat, left arm pain, lightheadedness, palpitations, PND, syncope, others Gastrointestinal: denies: abdomen distended, abdominal pain, blood streaked bowels, constipated, diarrhea, dysphagia, difficulty swallowing, hematemesis, melena, nausea, poor appetite, poor fluid intake, rectal bleeding, rectal pain, vomiting, others Genitourinary: denies: abnormal vagina bleeding, burning, dyspareunia, dysuria, flank pain, frequency, hematuria, incontinence, pain, , vagina discharge, urgency, others Neurological: reports: numbness (LT arm); denies: dizziness, fainting, headache, left sided numbness, left sided weakness, paresthesia, pre-existing deficit, right sided numbness, right sided weakness, seizure, speech problems, tingling, tremors, weakness, others Musculoskeletal: denies: back pain, gout, joint pain, joint swelling, muscle pain, muscle stiffness, neck pain, others Integumetry: denies: bruises, change in color, change in hair/nails, dryness, laceration, lesions, lumps, rash, wounds, others Allergic/Immunocompromised: denies: Difficulty Healing, Frequent Infections, Hives, Itching, others Hematologic/Lymphatic: denies: anemia, blood clots, easy bleeding, easy bruising, swollen glands, others Endocrine: denies: excessive hunger, excessive sweating, excessive thirst, excessive urination, flushing, intolerance to cold, intolerance to heat, unexplained weight gain, unexplained weight loss, others Psychiatric: denies: anxiety, bipolar disorder, depression, hopeless, panic dis order, schizophrenia, sleepless, suicidal, others All Other Systems: Reviewed and Negative Physical Exam General Appearance: No Apparent Distress, Normal HEENT: Normal ENT Inspection, Pharynx Normal, TMs Normal Neck: Full Range of Motion, Non-Tender, Normal, Normal Inspection Respiratory: Chest Non-Tender, Lungs Clear, No Accessory Muscle Use, No Respiratory Distress, Normal Breath Sounds Cardiovascular: No Edema, No JVD, No Murmur, No Gallop, Normal Peripheral Pulses, Regular Rate/Rhythm Breast Exam: Deferred Gastrointestinal: No Organomegaly, Non Tender, No Pulsatile Mass, Normal Bowel Sounds, Soft Genitalia: Deferred Pelvic: Deferred Rectal: Deferred Extremities: No calf tenderness, Normal capillary refill, Normal inspection, Normal range of motion, Non-tender, No pedal edema Musculoskeletal : Apperance: Normal Neurologic: Alert, health and safety director II-XII nml as Tested, No Motor Deficits, Normal Affect, Normal Mood, No Sensory Deficits Cerebellar Function: Normal Reflexes: Normal Skin: Dry, Normal Color, Warm Lymphatic: No Adenopathy Was a procedure done? Was a procedure done?: No Differential Dx Differential Diagnosis: Asthma, Bronchitis, Dysrhythmia, Pneumonia, Sinusitis, Allergic Rhinitis, URI X-Ray, Labs, Meds, VS Vital Signs Date Time Temp Pulse Resp B/P (MAP) Pulse Ox O2 Delivery O2 Flow Rate FiO2 08/11/24 23:37 115 08/11/24 21:43 118 08/11/24 21:06 98.1 120 24 152/77 (102) 98 98.1 08/11/24 20:39 125 Lab Test 08/12/24 00:09 08/11/24 21:47 08/11/24 21:08 08/11/24 20:54 Range/Units Troponin I High Sensitivity 6 8 7 </=34 ng/L White Blood Count 16.4 H 4.4-10.8 10^3/uL Red Blood Count 7.53 H 4.0-5.20 10^6/uL Hemoglobin 18.1 H 12.2-16.2 g/dL Hematocrit 56.7 H 36.0-46.0 % Mean Corpuscular Volume 75.3 L 80.0-100.0 fL Mean Corpuscular Hemoglobin 24.0 L 28.0-32.0 pg Mean Corpuscular Hemoglobin Concent 31.9 L 32.0-36.0 g/dL Red Cell Distribution Width 19.2 H 11.8-14.3 % Platelet Count 598 H 140-450 10^3/uL Mean Platelet Volume 7.2 6.9-10.8 fL Neutrophils (%) (Auto) 90.1 H 37.0-80.0 % Lymphocytes (%) (Auto) 5.8 L 10.0-50.0 % Monocytes (%) (Auto) 2.3 0.0-12.0 % Eosinophils (%) (Auto) 1.1 0.0-7.0 % Basophils (%) (Auto) 0.7 0.0-2.0 % Neutrophils # (Auto) 14.8 H 1.6-8.6 10 ^3/uL Lymphocytes # (Auto) 1.0 0.4-5.4 10 ^3/uL Monocytes # (Auto) 0.4 0-1.3 10 ^3/uL Eosinophils # (Auto) 0.2 0-0.8 10 ^3/uL Basophils # (Auto) 0.1 0-0.2 10 ^3/uL Nucleated Red Blood Cells 0.6 % Sodium Level 137 136-145 mmol/L Potassium Level 3.5 3.5-5.1 mmol/L Chloride Level 99 98-107 mmol/L Carbon Dioxide Level 31 20-31 mmol/L Anion Gap 7 5-15 Blood Urea Nitrogen 12 9-23 mg/dL Creatinine 0.95 0.550-1.02 mg/dL Glomerular Filtration Rate Calc 64 >90 mL/min BUN/Creatinine Ratio 12.6 10.0-20.0 Serum Glucose 130 H 74-106 mg/dL Calcium Level 10.2 8.7-10.4 mg/dL B-Type Natriuretic Peptide 39.48 0-100 pg/mL POC Glucose 144 H 70-106 mg/dl Time of 1ST Reevaluation: 21:15 Reevaluation 1ST: Unchanged Patient Education/Counseling: Diagnosis, Treatment, Prognosis Family Education/Counseling: No Family Present Additional Information The following tests were ordered, and results were reviewed by me: BMP, CBC, BNP, TROP-x3, XY CHEST I reviewed and agreed with the following test results read by other providers: XY CHEST I discussed treatment and results with medical personnel and: Patient Comprehensive systems review obtained and negative except for what is stated in the HPI. Departure 1 Departure Time of Disposition: 01:44 (Patient presented with shortness of breath that was concerning for possible STEMI, ACS, PE, Pneumonia, Muscle Strain, COPD, CHF, Dissection. Data: 1. I ordered and reviewed the result of at least 3 labs including a CBC, BMP, and Troponin. 2. I independently interpreted the following tests: EKG which shows _ sinus arrhythmia and Chest X-ray which shows pulmonary congestion.Risk:This patient has a high risk of morbidity due to further diagnostic testing or treatment and may suffer from an acute cardiac or respiratory disorder. Workup reveals concern for acute on chronic systolic dysfunction and patient should be admitted for further workup and possible expert consultation. ) Impression: Primary Impression: Acute on chronic heart failure with reduced ejection fraction (HFrEF, <= 40%) and combined systolic and diastolic dysfunction Additional Impression: Shortness of breath Disposition: ADMITTED INPATIENT Admit to: Med Surg Condition: Serious Critical Care Note Critical Care Time?: Yes Critical care comment: Shortness of breath Authorized and Performed by: Prakash Crooks MD Total critical care time: Approximately 39 minutes Due to a high probability of clinically significant, life threatening deterioration, the patient required my highest level of preparedness to intervene emergently and I personally spent this critical care time directly and personally managing the patient. This critical care time included obtaining a history; examining the patient; pulse oximetry; ordering and review of studies; arranging urgent treatment with development of a management plan; evaluation of patient's response to treatment; frequent reassessment; and, discussions with other providers. This critical care time was performed to assess and manage the high probability of imminent, life-threatening deterioration that could result in multi-organ failure. It was exclusive of separately billable procedures and treating other patients and teaching time. Please see my other sections and the rest of the note for further information on patient assessment and treatment. Stability Stability form required: No Heart Score Heart Score: Heart Score Response (Comments) Value History Slightly Suspicious 0 EKG Repolarization Disturb 1 Age >65 2 Risk Factors >3 or Hx ASHD 2 Troponin Normal limit 0 Total 5 I personally scribed for PRAKASH CROOKS MD ([email or web address]) on 08/11/24 at 20:55. Electronically submitted by Alisha Ybarra ([email or web address]). I personally scribed for PRAKASH CROOKS MD ([email or web address]) on 08/11/24 at 21:10. Electronically submitted by Alisha Ybarra ([email or web address]). PRAKASH CROOKS MD Aug 11, 2024 20:55
[2024-08-11 21:19] LABS: Basophils # (auto) 0.1 10 ^3/uL (0-0.2); Basophils % (auto) 0.7 % (0.0-2.0); Eosinophils # (auto) 0.2 10 ^3/uL (0-0.8); Eosinophils % (auto) 1.1 % (0.0-7.0); Hemoglobin 18.1 g/dL (12.2-16.2); Lymphocytes % (auto) 5.8 % (10.0-50.0); Mean Corpuscular Hgb Conc. 31.9 g/dL (32.0-36.0); Mean Corpuscular Volume 75.3 fL (80.0-100.0); Monocytes # (auto) 0.4 10 ^3/uL (0-1.3); Monocytes % (auto) 2.3 % (0.0-12.0); Neutrophils # (auto) 14.8 10 ^3/uL (1.6-8.6); Neutrophils % (auto) 90.1 % (37.0-80.0); Nucleated Red Blood Cells % 0.6 %; Platelet Count (auto) 598 10^3/uL (140-450); Red Blood Cells 7.53 10^6/uL (4.0-5.20); Red Cell Distribution Width 19.2 % (11.8-14.3); White Blood Cell 16.4 10^3/uL (4.4-10.8)
[2024-08-11 21:21] LABS: Hematocrit 56.7 % (36.0-46.0)
[2024-08-11 21:29] LABS: Chloride 99 mmol/L (98-107); Sodium 137 mmol/L (136-145)
[2024-08-11 21:30] LABS: Anion Gap 7 (5-15)
[2024-08-11 21:31] LABS: Calcium 10.2 mg/dL (8.7-10.4)
[2024-08-11 21:35] LABS: BUN/Creatinine Ratio 12.6 (10.0-20.0); Blood Urea Nitrogen 12 mg/dL (9-23)
[2024-08-11 21:36] LABS: Carbon Dioxide 31 mmol/L (20-31); Glucose 130 mg/dL (74-106); Potassium 3.5 mmol/L (3.5-5.1)
[2024-08-12] VITALS (14 sets, daily range): BP systolic 118–126; BP diastolic 57–80; PULSE 78–115; RESP 18–25; TEMP 98.7–98.9; O2SAT 93–100
--- NOTE | 2024-08-12 01:24 | DVH ---
CHEST RADIOGRAPH Indication: sob Technique: Single frontal view of the chest was obtained COMPARISON: XY CHEST PORTABLE on DOS: 06/10/23, XY CHEST PORTABLE on DOS: 06/08/23, XY CHEST PORTABLE o n DOS: 06/07/23, XY CHEST PORTABLE on DOS: 06/06/23, XY CHEST PORTABLE on DOS: 06/04/23 FINDINGS: Lines and Tubes: None Lungs: Stable diffuse chronic appearing bilateral interstitial pulmonary opacities throughout all isaac g zones, predominating at the bases. Pleura: No effusion. No pneumothorax. Cardiomediastinal contours: Unremarkable Bones: Unremarkable IMPRESSION: 1. No acute disease. 2. Stable diffuse chronic appearing bilateral interstitial pulmonary opacities.
[2024-08-12] MEDS: FUROSEMIDE 40 MG/4 ML VIAL IV ONE (01:45)
[2024-08-12] MEDS: hydrALAZINE HCL 20 MG/ML VL IV ONE (03:08)
[2024-08-12] MEDS: LABETALOL HCL 20 MG/4 ML VL IV ONE (05:00)
[2024-08-12] MEDS ORDERED: MORPHINE SULFATE INJ 2 MG/ml SYRG IV PRN (05:00)
[2024-08-12] MEDS ORDERED: ONDANSETRON HCL 4 MG/2 ML VIAL IV PRN (05:00)
[2024-08-12] MEDS ORDERED: NITROGLYCERIN 0.4 MG SL TAB SL PRN (05:00)
[2024-08-12] MEDS ORDERED: ALBUTEROL SULF 2.5 MG/0.5ML(0.5%) NEB SOLN NEB PRN (05:00)
[2024-08-12] MEDS: HYDROcodone-ACET 5/325MG TAB PO ONE (05:08)
--- NOTE | 2024-08-12 05:09 | DVHHP2 ---
History of Present Illness Reason for Visit: Shortness for breath History of Present Illness 69-year-old female presents for evaluation of shortness for breath. Patient presents with a one day history of worsening shortness for breath with associated chest pressure. Patient has been using her inhaler and nebulizer without relief of the symptoms. Denies cough or fever. No other acute complaints reported. Past Medical History Hypertension, COPD, CHF Family History Noncontributory Smoke: No ALCOHOL: none Drugs: None Lives: with Family Review of Systems Review of Systems Review of systems are currently negative otherwise addressed in HPI. Allergies: Coded Allergies: Codeine (Verified Allergy, Unknown, 05/30/23) Medications Current Medications Medications Dose Ordered Sig/Kaila Route Start Time Stop Time Status Last Admin Dose Admin Albuterol 2.5 mg Q6HPRN PRN NEB 08/12/24 05:00 UNV Atorvastatin Calcium 10 mg HS PO 08/12/24 22:00 UNV Furosemide 40 mg DAILY PO 08/12/24 10:00 UNV Metoprolol Tartrate 25 mg BID PO 08/12/24 10:00 UNV Losartan Potassium 50 mg DAILY PO 08/12/24 10:00 UNV Ceftriaxone Sodium 50 ml @ 100 mls/hr DAILY@09 IV 08/12/24 09:00 UNV Azithromycin 250 ml @ 125 mls/hr DAILY IV 08/12/24 10:00 UNV Ondansetron HCl 4 mg Q4HP PRN IV 08/12/24 05:00 UNV Enoxaparin Sodium 40 mg DAILY SC 08/12/24 10:00 UNV Acetaminophen 650 mg Q6HP PRN PO 08/12/24 05:00 UNV Nitroglycerin 0.4 mg Q5MINP PRN SL 08/12/24 05:00 UNV Morphine Sulfate 2 mg Q30M PRN IV 08/12/24 05:00 UNV Ipratropium [place] 0.5 mg Q6HPRN PRN NEB 08/12/24 05:15 UNV Exam Vital Signs Vital Signs Date Time Temp Pulse Resp B/P (MAP) Pulse Ox O2 Delivery O2 Flow Rate FiO2 08/12/24 04:00 133 08/12/24 03:08 152/81 08/12/24 02:51 25 98 Nasal Cannula* 3 32 08/12/24 02:49 98.9 98.9 Exam Gen: 69-year-old female in mild distress Skin: Warm, dry, normal color and texture, no rash. HEENT: Normocephalic atraumatic, mucous membranes moist and pink. Neck: Cervical and supraclavicular nodes normal without enlargement, trachea is midline, thyroid gland is normal without masses. Pulmonary: Clear to auscultation and percussion bilaterally. Cardiac: Regular rate and rhythm. No murmur Abdomen: Soft, nontender, nondistended, bowel sounds present all 4 quadrants, no guarding, no rigidity, no organomegaly. Extremities: No cyanosis, clubbing, no edema Neuro: Cranial nerves II through XII grossly intact, normal affect and speech, no focal motor deficits. Labs/Xrays ORDERING PHYSICIAN: ARCADIO MENENDEZ MD PROCEDURE(s): ECIDC - ECHO 2D MODE CARDIAC DOP REASON: COPD, Pulm HTN ORDER NUMBER(s): [id number], ACCESSION NUMBER(s): [id number] APPROVED REPORT EXAM: Two-dimensional and M-mode echocardiogram with Doppler and color Doppler. INDICATION COPD, PULM HTN RISK FACTORS Height: 67, Weight: 232 DIMENSIONS LVDd 4.1 (3.8-5.7cm) LA (2D) 3.4 (1.9-4.0cm) Aortic Root 2.9 (2.0- 3.7cm) LVDs 2.8 (2.5-4.0cm) LA (MM) (1.9-4.0cm) Aortic Cusp Exc 1.1 (1.5- 2.0cm) EF (%) 60.0 (55-70%) Rt. Atrium 4.3 (1.9-4.0cm) Asc. Aorta cm IVSd 0.9 (0.7-1.1cm) RV (D) (1.8-2.4cm) PWd 0.8 (0.7-1.1cm) Mitral Valve Mitral Mitral Stenosis E wave 0.55m/s MV Mean GR. mmHg A wave 1.00m/s MV Peak GR. mmHg E/A ratio 0.6 2D MVA cm2 DECEL Time 220ms PRESS 1/2 Time ms Aortic Valve Aortic Valve Aortic Stenosis V1 1.24m/s AO Mean GR. 7mmHg V2 1.74m/s AO Peak GR. 12mmHg LVOT Diameter 1.7 (1.8-2.4cm) Doppler SULEMA 1.62cm2 Pulmonic Valve V2 1.59m/s Conclusion Normal left ventricular size and dimension. Normal left ventricular systolic function estimated ejection fraction 55%. There is a grade 1 diastolic dysfunction. Normal right ventricular size and dimension. Normal right ventricular systolic function. Normal biatrial size and dimension. Normal aortic valve structure and function. Normal mitral valve structure and function. Normal tricuspid valve structure and function. The pulmonary valve is grossly normal. No pericardial effusion. ORDERING PHYSICIAN: YONY COPPOLA MD PROCEDURE(s): CXRP - CHEST PORTABLE REASON: sob ORDER NUMBER(s): [id number], ACCESSION NUMBER(s): [id number] CHEST RADIOGRAPH Indication: sob Technique: Single frontal view of the chest was obtained COMPARISON: XY CHEST PORTABLE on DOS: 06/10/23, XY CHEST PORTABLE on DOS: 06/08/23, XY CHEST PORTABLE on DOS: 06/07/23, XY CHEST PORTABLE on DOS: 06/06/23, XY CHEST PORTABLE on DOS: 06/04/23 FINDINGS: Lines and Tubes: None Lungs: Stable diffuse chronic appearing bilateral interstitial pulmonary opacities throughout all lung zones, predominating at the bases. Pleura: No effusion. No pneumothorax. Cardiomediastinal contours: Unremarkable Bones: Unremarkable IMPRESSION: 1. No acute disease. 2. Stable diffuse chronic appearing bilateral interstitial pulmonary opacities. ATED BY: JUNITO HO MD Labs Test 08/12/24 00:09 08/11/24 21:08 08/11/24 20:54 Range/Units Troponin I High Sensitivity 6 </=34 ng/L White Blood Count 16.4 H 4.4-10.8 10^3/uL Red Blood Count 7.53 H 4.0-5.20 10^6/uL Hemoglobin 18.1 H 12.2-16.2 g/dL Hematocrit 56.7 H 36.0-46.0 % Mean Corpuscular Volume 75.3 L 80.0-100.0 fL Mean Corpuscular Hemoglobin 24.0 L 28.0-32.0 pg Mean Corpuscular Hemoglobin Concent 31.9 L 32.0-36.0 g/dL Red Cell Distribution Width 19.2 H 11.8-14.3 % Platelet Count 598 H 140-450 10^3/uL Mean Platelet Volume 7.2 6.9-10.8 fL Neutrophils (%) (Auto) 90.1 H 37.0-80.0 % Lymphocytes (%) (Auto) 5.8 L 10.0-50.0 % Monocytes (%) (Auto) 2.3 0.0-12.0 % Eosinophils (%) (Auto) 1.1 0.0-7.0 % Basophils (%) (Auto) 0.7 0.0-2.0 % Neutrophils # (Auto) 14.8 H 1.6-8.6 10 ^3/uL Lymphocytes # (Auto) 1.0 0.4-5.4 10 ^3/uL Monocytes # (Auto) 0.4 0-1.3 10 ^3/uL Eosinophils # (Auto) 0.2 0-0.8 10 ^3/uL Basophils # (Auto) 0.1 0-0.2 10 ^3/uL Nucleated Red Blood Cells 0.6 % Sodium Level 137 136-145 mmol/L Potassium Level 3.5 3.5-5.1 mmol/L Chloride Level 99 98-107 mmol/L Carbon Dioxide Level 31 20-31 mmol/L Anion Gap 7 5-15 Blood Urea Nitrogen 12 9-23 mg/dL Creatinine 0.95 0.550-1.02 mg/dL Glomerular Filtration Rate Calc 64 >90 mL/min BUN/Creatinine Ratio 12.6 10.0-20.0 Serum Glucose 130 H 74-106 mg/dL Calcium Level 10.2 8.7-10.4 mg/dL B-Type Natriuretic Peptide 39.48 0-100 pg/mL POC Glucose 144 H 70-106 mg/dl Assessment/Plan Assessment/Plan Assessment Acute on chronic respiratory failure COPD exacerbation Questionable pneumonia Congestive heart failure Plan Admit the patient to telemetry to the hospitalist Med nebs Rocephin/azithromycin Resume home medications Continue treatment per orders. Plan discussed with: Patient My Orders Orders - JERAD SPENCER Procedure Category Date Status Time Lactic Acid W/ Reflex LAB 08/12/24 Logged Order 04:55 Albuterol Medneb PHA 08/12/24 In Process (Ventolin Medneb) 05:00 Atorvastatin (Lipitor) PHA 08/12/24 In Process 22:00 Furosemide Tablet PHA 08/12/24 In Process (Lasix Tablet) 10:00 Metoprolol Tartrate PHA 08/12/24 In Process Tablet (Lopressor Ta 10:00 Losartan Tablet PHA 08/12/24 In Process (Cozaar Tablet) 10:00 D-Dimer LAB 08/12/24 Logged 04:55 Ceftriaxone 1gm/50ml PHA 08/12/24 In Process D5w (Rocephin) 05:30 Azithromycin 500mg/ PHA 08/12/24 In Process 250ml (Zithromax 50 06:00 Basic Metabolic Panel LAB 08/13/24 Verified 04:00 Admit ADMIT 08/12/24 Transmitted 04:55 Ondansetron Hcl PHA 08/12/24 In Process (Zofran) 05:00 Enoxaparin Sodium PHA 08/12/24 In Process (Lovenox) 10:00 Complete Blood Count LAB 08/13/24 Verified 04:00 Cardiac DIET 08/12/24 Transmitted Diet-2gna,Lofat,Lochol Breakfast Condition: Fair JENNY 08/12/24 In Process 04:[address] [facility] 08/12/24 In Process (Tylenol Tablet) 05:00 Bedrest With Bathroom [facility] 08/12/24 In Process Privileg 04:55 Nitroglycerin PHA 08/12/24 In Process Sublingual (Ntrostat 05:00 Morphine Sulfate PHA 08/12/24 Logged Injection 05:00 Stat Ekg For Chest [facility] 08/12/24 In Process Pain 04:55 Notify Of Changes [facility] 08/12/24 In Process From Base 04:55 Electrician Substation Supervisor For [facility] 08/12/24 In Process 24 Hours 04:55 Emergency Dysrhythmia [facility] 08/12/24 In Process Protocol 04:55 Rhythm Strips Once [facility] 08/12/24 In Process Every Shift 04:55 Oxygen By Nasal RT 08/12/24 Transmitted Cannula 04:55 Ipratropium Medneb PHA 08/12/24 In Process (Atrovent Medneb) 05:15 Date of Service: Aug 12, 2024 Billing Provider: JERAD SPENCER Common Visit Codes: [id number] INP/OBS CARE (HIGH) JERAD SPENCER Aug 12, 2024 05:09
[2024-08-12] MEDS ORDERED: IPRATROPIUM BROM 0.5 MG/2.5ML INH SOL NEB PRN (05:15)
[2024-08-12] MEDS: AZITHROMYCIN 500MG/ 250ML 250 ML IV SCH (05:18)
[2024-08-12] MEDS: cefTRIAXone 1GM/50ML D5W 50 ML IV SCH (05:18)
--- NOTE | 2024-08-12 06:26 | ECG ---
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
--- NOTE | 2024-08-12 06:27 | ECG ---
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
--- NOTE | 2024-08-12 09:13 | ECG ---
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
[2024-08-12] MEDS: ENOXAPARIN SOD 40 MG/0.4 ML SYRINGE SC SCH (10:53)
[2024-08-12] MEDS: LOSARTAN POTASSIUM 50 MG TAB PO SCH (10:53)
[2024-08-12 10:54] LABS: Alanine Aminotransferase 17 U/L (7-40); Albumin 4.4 g/dL (3.2-4.8); Alkaline Phosphatase 93 U/L (46-116); Anion Gap 10 (5-15); Aspartate Aminotransferase 23 U/L (13-40); BUN/Creatinine Ratio 14.6 (10.0-20.0); Blood Urea Nitrogen 13 mg/dL (9-23); Calcium 9.9 mg/dL (8.7-10.4); Carbon Dioxide 29 mmol/L (20-31); Chloride 100 mmol/L (98-107); Magnesium 1.9 mg/dL (1.6-2.6); Potassium 3.7 mmol/L (3.5-5.1); Sodium 139 mmol/L (136-145); Total Protein 7.4 g/dL (5.7-8.2)
[2024-08-12] MEDS: FUROSEMIDE 40 MG TAB PO SCH (10:54)
[2024-08-12] MEDS: METOPROLOL TARTRATE 25 MG TAB PO SCH (10:54)
[2024-08-12 10:55] LABS: Bilirubin, Total 1.1 mg/dL (0.2-1.0)
[2024-08-12 11:00] LABS: Basophils # (auto) 0.1 10 ^3/uL (0-0.2); Glucose 141 mg/dL (74-106); Monocytes # (auto) 0.8 10 ^3/uL (0-1.3)
[2024-08-12 11:02] LABS: Basophils % (auto) 0.4 % (0.0-2.0); Eosinophils # (auto) 0 10 ^3/uL (0-0.8); Eosinophils % (auto) 0.1 % (0.0-7.0); Hematocrit 56.6 % (36.0-46.0); Hemoglobin 17.6 g/dL (12.2-16.2); Lymphocytes # (auto) 1.1 10 ^3/uL (0.4-5.4); Lymphocytes % (auto) 3.8 % (10.0-50.0); Mean Corpuscular Hemoglobin 23.6 pg (28.0-32.0); Mean Corpuscular Hgb Conc. 31.1 g/dL (32.0-36.0); Monocytes % (auto) 2.5 % (0.0-12.0); Neutrophils # (auto) 27.8 10 ^3/uL (1.6-8.6); Neutrophils % (auto) 93.2 % (37.0-80.0); Nucleated Red Blood Cells % 0.3 %; Platelet Count (auto) 547 10^3/uL (140-450); Red Blood Cells 7.44 10^6/uL (4.0-5.20); Red Cell Distribution Width 18.9 % (11.8-14.3); White Blood Cell 29.9 10^3/uL (4.4-10.8)
[2024-08-12 11:25] LABS: INR 1.12 (0.9-1.15); Partial Thromboplastin Time 34.5 SEC (24.5-34.5); Prothrombin Time 11.7 sec (9.3-11.8)
[2024-08-12] MEDS: POTASSIUM CHL 20 Meq TABLET PO ONE (11:46)
[2024-08-12] MEDS: HYDROcodone-ACET 5/325MG TAB PO PRN (14:12)
[2024-08-12 15:46] LABS: COVID19 ANTIGEN SOFIA FIA NEGATIVE (NEGATIVE); Rapid Influenza A Negative (Negative); Rapid Influenza B Negative (Negative)
--- NOTE | 2024-08-12 15:56 | DVHSR ---
APPROVED REPORT EXAM: LIMITED Two-dimensional and M-mode echocardiogram with Doppler and color Doppler. Blood Pressure: 137/65 mmHg INDICATION CHF RISK FACTORS Height: 5' 7", Weight: 231 DIMENSIONS LVDd4.5 (3.8-5.7cm)LA (2D)3.7 (1.9-4.0cm)Aortic Root3.0 (2.0-3.7cm) LVDs3.2 (2.5-4.0cm)LA (MM) (1.9-4.0cm)Aortic Cusp Exc1.7 (1.5-2.0cm) EF (%) 55.0 (55-70%)Rt. Atrium3.9 (1.9-4.0cm)Asc. Aorta cm IVSd1.0 (0.7-1.1cm)RV (D) (1.8-2.4cm) PWd1.0 (0.7-1.1cm) Mitral Valve MitralMitral Stenosis E wave0.70m/sMV Mean GR.mmHg A wave0.80m/sMV Peak GR.mmHg E/A ratio0.92D MVAcm2 Aortic Valve Aortic ValveAortic Stenosis V10.60m/Manuel Mean GR.3mmHg V21.30m/Manuel Peak GR.7mmHg LVOT Diameter2.2 (1.8-2.4cm)Doppler AVA1.75cm2 Other Information Quality : Technically LimitedRhythm : Technically limited study due to body habitus. Conclusion lvef 55-60% by visual estimate rv not well seen valves limited eval no severe valve abnormalities noted
--- NOTE | 2024-08-12 16:33 | DVHPNRES ---
Progress Note Date Seen: Aug 12, 2024 Resident Creating Document: LARRY GOLDBERG RESIDENT Medical Necessity Reason Pt with a Central, PICC or Fol: No Subjective Review of Systems This is a 69-year-old female presents for evaluation of shortness for breath. Past Medical History: Hypertension, COPD, CHF, home O2 at 2-3lts Past surgical history: Cholecystectomy, appendectomy Family History: Noncontributory SH: Smoke: No. ALCOHOL: none. Drugs: None Patient presents with a one day history of worsening shortness for breath with associated chest pressure. Patient has been using her inhaler and nebulizer without relief of the symptoms. Denies cough or fever. No other acute complaints reported. On my initial assessment, patient was seen and examined at bedside. She currently states having shortness of breath, mild chest tightness, denies any abdominal pain, dysuria, nausea, vomiting, diarrhea, constipation, dizziness, lightheadedness. She's currently tolerating diet. Objective vital signs Vital Sign Date Time Temp Pulse Resp B/P (MAP) Pulse Ox O2 Delivery O2 Flow Rate FiO2 08/12/24 16:14 99 Nasal Cannula* 3 32 08/12/24 15:46 77 16 121/48 (72) 08/12/24 08:16 98.7 98.7 medications Current Medications Medications Dose Ordered Sig/Kaila Route Start Time Stop Time Status Last Admin Dose Admin Albuterol 2.5 mg Q6HPRN PRN NEB 08/12/24 05:00 Atorvastatin Calcium 10 mg HS PO 08/12/24 22:00 Furosemide 40 mg DAILY PO 08/12/24 10:00 08/12/24 10:54 40 MG Metoprolol Tartrate 25 mg BID PO 08/12/24 10:00 08/12/24 10:54 25 MG Losartan Potassium 50 mg DAILY PO 08/12/24 10:00 08/12/24 10:53 50 MG Ceftriaxone Sodium 50 ml @ 100 mls/hr DAILY@09 IV 08/12/24 05:30 08/12/24 05:18 100 MLS/HR Azithromycin 250 ml @ 125 mls/hr DAILY IV 08/12/24 06:00 08/12/24 05:18 125 MLS/HR Ondansetron HCl 4 mg Q4HP PRN IV 08/12/24 05:00 Enoxaparin Sodium 40 mg DAILY SC 08/12/24 10:00 08/12/24 10:53 40 MG Acetaminophen 650 mg Q6HP PRN PO 08/12/24 05:00 Nitroglycerin 0.4 mg Q5MINP PRN SL 08/12/24 05:00 Morphine Sulfate 2 mg Q30M PRN IV 08/12/24 05:00 Hold Ipratropium [place] 0.5 mg Q6HPRN PRN NEB 08/12/24 05:15 Acetaminophen/ Hydrocodone Bitart 1 tab Q8HPRN PRN PO 08/12/24 13:30 08/12/24 14:12 1 TAB Examination Physical examination as below: General: Awake, alert, comfortable appearing, in no acute distress. HEENT: Head is normocephalic and atraumatic. Pupils are equal, round, and reactive to light. Extraocular muscles are intact. No nasal discharge. No facial trauma. Intraoral exam shows moist mucous membranes with no tonsillar enlargement or exudate. Neck: Supple with no cervical lymphadenopathy. Heart: Regular rate without murmur, rub, or gallop. Lungs: Scattered crackles Abdomen: No external sign of injury. Bowel sounds are present. Abdomen is soft, nontender. No rebound, no guarding, no rigidity. There are no palpable masses. There is no flank pain on exam. Extremities: Strong peripheral pulses. There is no clubbing, no cyanosis, and no edema. Skin: No rash. Neurologic: Cranial nerves II-XII intact without motor, sensory, or cerebellar deficit, no asterixis. laboratory and microbiology Laboratory Tests 08/12/24 06:40 Test 08/12/24 06:40 Range/Units Serum Glucose 141 H 74-106 mg/dL Labs and/or images reviewed: Labs reviewed by me, Image(s) reviewed by me Problem List/Assessment/Plan Problem List/Assessment/Plan Acute on chronic hypoxic respiratory failure Pneumonia gram (+) vs gram (-), atypicals, r/o ILD Pancytosis, possible due to sepsis, r/o myeloproliferative disorder COPD Obesity Hypertension Dyslipidemia Plan: Zosyn IV Azithromycin IV Panculture ordered COVID and flu (-) DuoNebs q4wa Echo shows EF 55%, no significant abnormalities CXR shows: Stable diffuse chronic appearing bilateral interstitial pulmonary opacities. Ordered high resolution ct scan of chest Maintain saturation above 92, thru NC. Ordered blood smear Goals of care were discussed for over 30 minutes. FULL CODE. Case was discussed with Dr. Barragan Plan discussed with: Patient, Other (RN) My Orders My Orders Orders - LARRY GOLDBERG RESIDENT Procedure Category Date Status Time Urinalysis LAB 08/12/24 Logged 10:01 Drug Screen LAB 08/12/24 Logged 10:01 Echo 2d Mode Cardiac US 08/12/24 Resulted DOP 10:01 Mrsa Screen CHARLIE 08/12/24 Logged 10:01 Urine Bacterial CHARLIE 08/12/24 Logged Culture 10:11 Blood Culture CHARLIE 08/12/24 In Process 10:11 Respiratory Culture CHARLIE 08/12/24 Logged W/ Gs 10:11 Mathew Stain Slide LAB 08/12/24 Logged 16:21 Date of Service: Aug 13, 2024 Billing Provider: JESSICA BARRAGAN MD Common Visit Codes: [id number] INP/OBS CARE(HIGH) LARRY GOLDBERG RESIDENT Aug 12, 2024 16:33 JESSICA BARRAGAN MD Aug 13, 2024 11:14
[2024-08-12] MEDS: ALBUTEROL SULF 2.5 MG/0.5ML(0.5%) NEB SOLN NEB SCH (19:39)
[2024-08-12] MEDS: IPRATROPIUM BROM 0.5 MG/2.5ML INH SOL NEB SCH (19:40)
[2024-08-12] MEDS: fentaNYL CITRATE 100 MCG/2 ML VL IV ONE (21:00)
[2024-08-12] MEDS ORDERED: FLUT1AER3 IN (22:39)
[2024-08-12] MEDS: ATORVASTATIN 20 MG TAB PO SCH (22:42)
[2024-08-12] MEDS: PIPERACILLIN-TAZOB 3.375GM 100 ML IV SCH (22:42)
[2024-08-13] VITALS (18 sets, daily range): BP systolic 106–143; BP diastolic 46–65; PULSE 78–111; RESP 16–21; TEMP 97.9–98.3; O2SAT 94–100
--- NOTE | 2024-08-13 05:51 | DVH ---
Procedure: CT HI-RESOLUTION CHEST CT Reason for study/Clinical History: OPACITIES VS FIBROSIS Comparison Study: None available at time of dictation. Exam Date: 08/12/2024 08:29 PM TECHNIQUE: Multidetector CT of the chest was performed from the lung apices to the upper abdomen with out the use of intravenous contract. Axial, coronal and sagittal multiplanar reformats were performed . Radiation Dose Information: CT Dose: CTDI volume is 25 mGy. Dose-length product is 250 mGy*cm The dose indicators for CT are the volume Computed Tomography (CT) Dose Index (CTDIvol) and the Dose Length Product (DLP), and are measured in units of mGy and mGy-cm, respectively. These indicators are not patient dose, but values generated from the CT scanner acquisition factors. The report includes radiation exposure data for exposures received during this examination. FINDINGS: Lower neck: Normal thyroid. Lungs: Diffuse COPD/emphysema. There is bibasilar atelectasis. No airspace opacities are present. Heart/Vascular Structures: Normal heart size. No pericardial effusion. Lymph Nodes: No adenopathy Pleura: No pleural effusion or significant pneumothorax. Musculoskeletal: No acute osseous abnormality. Soft tissues: Normal. Upper abdomen: Limited portions of the upper abdomen are unremarkable. IMPRESSION: Diffuse COPD/emphysema. There is bibasilar atelectasis. No airspace opacities are present. Radiation optimization: All CT scans at this facility use at least one of these dose optimization rula hniques: automated exposure control mA and/or kV adjustment per patient size (includes targeted exam s where dose is matched to clinical indication) or iterative reconstruction.
[2024-08-13] MEDS: FUROSEMIDE 40 MG/4 ML VIAL IV SCH (09:40)
[2024-08-13] MEDS: AZITHROMYCIN 500MG/ 250ML 250 ML IV SCH (09:41)
[2024-08-13 10:04] LABS: Mean Corpuscular Hemoglobin 24.1 pg (28.0-32.0); Mean Corpuscular Volume 75.3 fL (80.0-100.0); Monocytes # (auto) 0.8 10 ^3/uL (0-1.3)
[2024-08-13 10:06] LABS: Basophils # (auto) 0.2 10 ^3/uL (0-0.2); Basophils % (auto) 0.9 % (0.0-2.0); Eosinophils # (auto) 0.3 10 ^3/uL (0-0.8); Hematocrit 53.8 % (36.0-46.0); Hemoglobin 17.2 g/dL (12.2-16.2); Lymphocytes % (auto) 11.9 % (10.0-50.0); Monocytes % (auto) 4.5 % (0.0-12.0); Neutrophils # (auto) 13.8 10 ^3/uL (1.6-8.6); Neutrophils % (auto) 80.7 % (37.0-80.0); Nucleated Red Blood Cells % 0.5 %; Red Blood Cells 7.14 10^6/uL (4.0-5.20); Red Cell Distribution Width 18.9 % (11.8-14.3); White Blood Cell 17.1 10^3/uL (4.4-10.8)
[2024-08-13 10:08] LABS: Platelet Count (auto) 615 10^3/uL (140-450)
[2024-08-13 10:13] LABS: Chloride 101 mmol/L (98-107); Sodium 139 mmol/L (136-145)
[2024-08-13 10:14] LABS: Anion Gap 8 (5-15); Calcium 9.9 mg/dL (8.7-10.4); Carbon Dioxide 30 mmol/L (20-31)
[2024-08-13 10:16] LABS: Potassium 3.3 mmol/L (3.5-5.1)
[2024-08-13 10:19] LABS: BUN/Creatinine Ratio 16.3 (10.0-20.0); Blood Urea Nitrogen 17 mg/dL (9-23)
[2024-08-13 10:24] LABS: Glucose 136 mg/dL (74-106)
[2024-08-13] MEDS: methylPREDNISolone SOD SUCC 125 MG/2 ML VL IV ONE (10:41)
[2024-08-13] MEDS: POTASSIUM CHL 20 Meq TABLET PO ONE (11:34)
--- NOTE | 2024-08-13 11:42 | DVHPNRES ---
Progress Note Date Seen: Aug 13, 2024 Resident Creating Document: LARRY GOLDBERG RESIDENT Medical Necessity Reason Pt with a Central, PICC or Fol: No Subjective Review of Systems Patient was seen and examined at bedside. She currently states having shortness of breath, denies any abdominal pain, dysuria, nausea, vomiting, diarrhea, constipation, lightheadedness. She's currently tolerating diet. She is also complaining of headache, dizziness and appears anxious. Objective vital signs Vital Sign Date Time Temp Pulse Resp B/P (MAP) Pulse Ox O2 Delivery O2 Flow Rate FiO2 08/13/24 10:30 86 18 98 08/13/24 09:41 137/58 08/13/24 09:00 98.2 98.2 08/13/24 08:00 Nasal Cannula* 4 36 Total Intake and Output 08/12/24 08/12/24 08/13/24 15:00 23:00 07:00 Intake Total 500 ml Balance 500 ml medications Current Medications Medications Dose Ordered Sig/Kaila Route Start Time Stop Time Status Last Admin Dose Admin Atorvastatin Calcium 10 mg HS PO 08/12/24 22:00 08/12/24 22:42 10 MG Metoprolol Tartrate 25 mg BID PO 08/12/24 10:00 08/13/24 09:41 25 MG Losartan Potassium 50 mg DAILY PO 08/12/24 10:00 08/13/24 09:40 50 MG Ondansetron HCl 4 mg Q4HP PRN IV 08/12/24 05:00 Enoxaparin Sodium 40 mg DAILY SC 08/12/24 10:00 08/13/24 09:41 40 MG Acetaminophen 650 mg Q6HP PRN PO 08/12/24 05:00 Nitroglycerin 0.4 mg Q5MINP PRN SL 08/12/24 05:00 Morphine Sulfate 2 mg Q30M PRN IV 08/12/24 05:00 Hold Acetaminophen/ Hydrocodone Bitart 1 tab Q8HPRN PRN PO 08/12/24 13:30 08/12/24 22:43 1 TAB Albuterol 2.5 mg Q4HWA NEB 08/12/24 19:00 08/13/24 10:25 2.5 MG Ipratropium [place] 0.5 mg Q4HWA NEB 08/12/24 19:00 08/13/24 10:25 0.5 MG Piperacillin Sod/ Tazobactam Sod 100 ml @ 25 mls/hr Q8HR IV 08/12/24 22:00 08/13/24 05:46 25 MLS/HR Furosemide 40 mg DAILY IV 08/13/24 10:00 08/13/24 09:40 40 MG Azithromycin 250 ml @ 125 mls/hr DAILY@1000 IV 08/13/24 10:00 08/13/24 09:41 125 MLS/HR Methylprednisolone Sodium Succinate 40 mg BID IV 08/13/24 22:00 Examination Physical examination as below: General: Awake, alert, anxious HEENT: Head is normocephalic and atraumatic. Pupils are equal, round, and reactive to light. Extraocular muscles are intact. No nasal discharge. No facial trauma. Intraoral exam shows moist mucous membranes with no tonsillar enlargement or exudate. Neck: Supple with no cervical lymphadenopathy. Heart: Regular rate without murmur, rub, or gallop. Lungs: Scattered crackles and wheezing Abdomen: No external sign of injury. Bowel sounds are present. Abdomen is soft, nontender. No rebound, no guarding, no rigidity. There are no palpable masses. There is no flank pain on exam. Extremities: Strong peripheral pulses. There is no clubbing, no cyanosis, and no edema. Skin: No rash. Neurologic: Cranial nerves II-XII intact without motor, sensory, or cerebellar deficit, no asterixis. laboratory and microbiology Laboratory Tests 08/13/24 09:50 Test 08/13/24 09:50 Range/Units Serum Glucose 136 H 74-106 mg/dL Microbiology Date/Time Source Procedure Growth Status 08/12/24 10:40 Blood Blood Culture - Preliminary NO GROWTH AFTER 24 HOURS OF INCUBATION. Resulted Labs and/or images reviewed: Labs reviewed by me, Image(s) reviewed by me Problem List/Assessment/Plan Problem List/Assessment/Plan Acute on chronic hypoxic respiratory failure Pneumonia gram (+) vs gram (-), atypicals Pancytosis, possible due to sepsis, r/o myeloproliferative disorder COPD exacerbation, emphysematous Obesity Hypertension Dyslipidemia Plan: Zosyn IV Azithromycin IV Solumedrol 40mg iv bid Panculture ordered COVID and flu (-) DuoNebs q4wa Echo shows EF 55%, no significant abnormalities Maintain saturation above 92, thru NC. patient is back at her baseline Ordered blood smear, epo, LDH possible dc tomorrow Goals of care were discussed for over 30 minutes. FULL CODE. Case was discussed with Dr. Barragan Plan discussed with: Patient, Other (RN) My Orders My Orders Orders - LARRY GOLDBERG RESIDENT Procedure Category Date Status Time Albuterol Medneb PHA 08/12/24 In Process (Ventolin Medneb) 19:00 Ipratropium Medneb PHA 08/12/24 In Process (Atrovent Medneb) 19:00 Piperacillin-Tazob PHA 08/12/24 In Process 3.375gm (Zosyn 3.375g 22:00 Furosemide Injection PHA 08/13/24 In Process (Lasix Injection) 10:00 Incentive Spirometry ORDERS 08/13/24 Transmitted Q 1hr 08:[address] 08/13/24 Taken 09:30 Methylprednisolone PHA 08/13/24 In Process Sod Succ (Solu Medrol 22:00 Erythropoietin LAB 08/13/24 In Process 09:37 Date of Service: Aug 13, 2024 Billing Provider: JESSICA BARRAGAN MD Common Visit Codes: [id number] INP/OBS CARE(HIGH) LARRY GOLDBERG RESIDENT Aug 13, 2024 11:42 JESSICA BARRAGAN MD Aug 15, 2024 08:56
[2024-08-13 12:15] LABS: Urine Bacteria FEW /hpf (None Seen); Urine Blood Negative /uL (Negative); Urine Clarity Clear (Clear); Urine Color Light-Yellow (Yellow); Urine Hyaline Cast FEW /lpf (0 - 2); Urine Protein, UAD Negative (Negative); Urine Squamous Epithelial Cell FEW /hpf (<5); Urine Urobilinogen Normal (Negative); Urine WBC 3 /HPF (0-5)
[2024-08-13 12:26] LABS: Opiate Scree,Urine Neg (NEGATIVE)
[2024-08-13 12:27] LABS: Amphetamine Screen, Urine Neg (NEGATIVE); Barbiturate Scree,Urine Neg (NEGATIVE); Benzodiazephine Screen, Urine Neg (NEGATIVE); Cannabinoid Screen, Urine Neg (NEGATIVE); Cocaine Screen, Urine Neg (NEGATIVE); Phencyclidine Screen, Urine Neg (NEGATIVE)
--- NOTE | 2024-08-13 13:14 | DVH ---
EXAM: HEAD WITHOUT CONTRAST HISTORY: headache COMPARISON: None TECHNIQUE: Axial images were obtained and reformatted in coronal and sagittal planes. All CT scans at this medical facility are performed using dose modulation techniques as appropriate t o a performed exam including the following: Automated exposure control was utilized; adjustment of th e MA and/or KV according to patient size; and use of iterative reconstruction technique. CT Dose: CTDI volume is 59.31 mGy. Dose-length product is 1050.16 mGy*cm FINDINGS: Supratentorial Region: No evidence for large acute territorial ischemia. No intracranial hemorrhage is noted. Posterior Fossa: No acute abnormality. Brainstem: Unremarkable. Sellar/Suprasellar Region: Fluid-filled Sella with a diminutive pituitary gland noted. Ventricles, Cisterns, Sulci: Age-appropriate. Orbits: Unremarkable. Paranasal Sinuses: Unremarkable. Mastoid Air Cells: Unremarkable. Vasculature: Unremarkable. Bones/Soft Tissues: No acute abnormality. Other: None. IMPRESSION: 1.No acute intracranial process. 2.Empty Sella Syndrome, commonly an incidental finding of no clinical significance but there exists a well-established association with idiopathic intracranial hypertension. Correlate clinically.
[2024-08-13] MEDS: ACETAMINOPHEN 325 MG TAB PO PRN (15:46)
[2024-08-13] MEDS: LEVALBUTEROL HCL 1.25 MG/3 ML NEB NEB SCH (18:20)
[2024-08-13] MEDS: methylPREDNISolone SOD SUCC 40 MG/ML VL IV SCH (22:14)
[2024-08-14] VITALS (16 sets, daily range): BP systolic 105–143; BP diastolic 57–82; PULSE 68–116; RESP 16–21; TEMP 97.7–98.9; O2SAT 90–99
[2024-08-14 08:00] LABS: Basophils # (auto) 0 10 ^3/uL (0-0.2); Eosinophils # (auto) 0 10 ^3/uL (0-0.8); Hemoglobin 16.4 g/dL (12.2-16.2); Monocytes # (auto) 0.2 10 ^3/uL (0-1.3); Neutrophils # (auto) 14.8 10 ^3/uL (1.6-8.6); White Blood Cell 16.1 10^3/uL (4.4-10.8)
[2024-08-14 08:03] LABS: Basophils % (auto) 0.3 % (0.0-2.0); Hematocrit 52.3 % (36.0-46.0); Lymphocytes % (auto) 6.4 % (10.0-50.0); Mean Corpuscular Hemoglobin 23.6 pg (28.0-32.0); Mean Corpuscular Hgb Conc. 31.4 g/dL (32.0-36.0); Monocytes % (auto) 1.3 % (0.0-12.0); Nucleated Red Blood Cells % 0.4 %; Platelet Count (auto) 554 10^3/uL (140-450); Red Blood Cells 6.98 10^6/uL (4.0-5.20); Red Cell Distribution Width 18.9 % (11.8-14.3)
[2024-08-14 08:25] LABS: Alanine Aminotransferase 15 U/L (7-40); Alkaline Phosphatase 100 U/L (46-116); Anion Gap 9 (5-15); Blood Urea Nitrogen 19 mg/dL (9-23); Calcium 10.2 mg/dL (8.7-10.4); Carbon Dioxide 26 mmol/L (20-31); Chloride 100 mmol/L (98-107); Magnesium 2.1 mg/dL (1.6-2.6); Potassium 4.3 mmol/L (3.5-5.1); Total Protein 7.2 g/dL (5.7-8.2)
[2024-08-14 08:26] LABS: Albumin 4.2 g/dL (3.2-4.8); Aspartate Aminotransferase 21 U/L (13-40); Bilirubin, Total 0.7 mg/dL (0.2-1.0)
[2024-08-14 08:27] LABS: Glucose 127 mg/dL (74-106); Sodium 135 mmol/L (136-145)
[2024-08-14 09:19] LABS: Giant Platelets Moderate; Hypochromia Moderate; Platelet Estimate Increased
--- NOTE | 2024-08-14 16:24 | DVHPNRES ---
Progress Note Date Seen: Aug 14, 2024 Resident Creating Document: JHAJJLAWRENCEVERONICA RESIDENT Medical Necessity Reason Pt with a Central, PICC or Fol: No Subjective Review of Systems Patient was seen and examined at the bedside. She reported of mild shortness of breath in the oxygen was increased from 2 L to 3 liters/minute. Denies any other acute complaints abdominal pain, dysuria, nausea, vomiting, diarrhea, constipation, dizziness. That overnight she was not able to sleep well Objective vital signs Vital Sign Date Time Temp Pulse Resp B/P (MAP) Pulse Ox O2 Delivery O2 Flow Rate FiO2 08/14/24 14:46 99 16 99 08/14/24 14:39 Nasal Cannula 2.0 08/14/24 14:39 28 08/14/24 10:00 126/82 08/14/24 09:00 98.2 98.2 Total Intake and Output 08/13/24 08/13/24 08/14/24 15:00 23:00 07:00 Intake Total 250 ml 450 ml 1320 ml Output Total 500 ml Balance 250 ml -50 ml 1320 ml medications Current Medications Medications Dose Ordered Sig/Kaila Route Start Time Stop Time Status Last Admin Dose Admin Atorvastatin Calcium 10 mg HS PO 08/12/24 22:00 08/13/24 22:07 10 MG Metoprolol Tartrate 25 mg BID PO 08/12/24 10:00 08/13/24 22:08 25 MG Losartan Potassium 50 mg DAILY PO 08/12/24 10:00 08/13/24 09:40 50 MG Ondansetron HCl 4 mg Q4HP PRN IV 08/12/24 05:00 Enoxaparin Sodium 40 mg DAILY SC 08/12/24 10:00 08/13/24 09:41 40 MG Acetaminophen 650 mg Q6HP PRN PO 08/12/24 05:00 08/13/24 15:46 650 MG Nitroglycerin 0.4 mg Q5MINP PRN SL 08/12/24 05:00 Morphine Sulfate 2 mg Q30M PRN IV 08/12/24 05:00 Hold Acetaminophen/ Hydrocodone Bitart 1 tab Q8HPRN PRN PO 08/12/24 13:30 08/14/24 02:21 1 TAB Ipratropium [place] 0.5 mg Q4HWA NEB 08/12/24 19:00 08/14/24 14:39 0.5 MG Piperacillin Sod/ Tazobactam Sod 100 ml @ 25 mls/hr Q8HR IV 08/12/24 22:00 08/14/24 06:29 25 MLS/HR Furosemide 40 mg DAILY IV 08/13/24 10:00 08/13/24 09:40 40 MG Azithromycin 250 ml @ 125 mls/hr DAILY@1000 IV 08/13/24 10:00 08/13/24 09:41 125 MLS/HR Methylprednisolone Sodium Succinate 40 mg BID IV 08/13/24 22:00 08/13/24 22:14 40 MG Levalbuterol HCl 0.625 mg Q4HWA NEB 08/13/24 18:00 08/14/24 14:39 0.625 MG Examination General: Awake, alert, anxious HEENT: Head is normocephalic and atraumatic. Pupils are equal, round, and reactive to light. Extraocular muscles are intact. No nasal discharge. No facial trauma. Intraoral exam shows moist mucous membranes with no tonsillar enlargement or exudate. Neck: Supple with no cervical lymphadenopathy. Heart: Regular rate without murmur, rub, or gallop. Lungs: Minimal bibasilar crackles, no wheezing Abdomen: No external sign of injury. Bowel sounds are present. Abdomen is soft, nontender. No rebound, no guarding, no rigidity. There are no palpable masses. There is no flank pain on exam. Extremities: Strong peripheral pulses. There is no clubbing, no cyanosis, and no edema. Skin: No rash. Neurologic: Cranial nerves II-XII intact without motor, sensory, or cerebellar deficit, no asterixis. laboratory and microbiology Laboratory Tests 08/14/24 06:13 Test 08/14/24 06:13 Range/Units Serum Glucose 127 H 74-106 mg/dL Microbiology Date/Time Source Procedure Growth Status 08/13/24 11:43 Voided Urine Urine Culture - Preliminary Resulted 08/13/24 05:45 Nose MRSA Screen - Final Complete 08/12/24 10:40 Blood Blood Culture - Preliminary NO GROWTH AFTER 48 HOURS OF INCUBATION. Resulted Problem List/Assessment/Plan Problem List/Assessment/Plan Acute on chronic hypoxic respiratory failure Pneumonia gram (+) vs gram (-), atypicals Pancytosis, possible due to sepsis, r/o myeloproliferative disorder COPD exacerbation, emphysematous Obesity Hypertension Dyslipidemia Plan: Zosyn IV Azithromycin po prednisone 40mg daily Panculture ordered COVID and flu (-) DuoNebs q4wa Echo shows EF 55%, no significant abnormalities Maintain saturation above 92, thru NC. patient is back at her baseline Ordered blood smear, epo, LDH possible dc tomorrow Goals of care were discussed for over 30 minutes. FULL CODE. Case was discussed with Dr. Geiger Plan discussed with: Patient My Orders My Orders Orders - MADHAV SMITH Procedure Category Date Status Time Pt Request For Service PT 08/14/24 Logged 09:49 Transfer Orders XFER 08/14/24 Transmitted 14:36 Date of Service: Aug 14, 2024 Billing Provider: ALYSE GEIGER MD Common Visit Codes: [id number] INP/OBS CARE(HIGH) MADHAV SMITH RESIDENT Aug 14, 2024 16:24 ALYSE GEIGER MD Aug 16, 2024 08:22
[2024-08-15] VITALS (19 sets, daily range): BP systolic 113–141; BP diastolic 63–74; PULSE 63–100; RESP 16–20; TEMP 97.5–97.9; O2SAT 87–100
[2024-08-15 10:15] LABS: Basophils # (auto) 0 10 ^3/uL (0-0.2); Eosinophils # (auto) 0 10 ^3/uL (0-0.8); Lymphocytes # (auto) 0.8 10 ^3/uL (0.4-5.4); Monocytes # (auto) 0.2 10 ^3/uL (0-1.3); Neutrophils # (auto) 12.7 10 ^3/uL (1.6-8.6); Nucleated Red Blood Cells % 0.2 %
[2024-08-15 10:17] LABS: Basophils % (auto) 0.3 % (0.0-2.0); Hematocrit 53.5 % (36.0-46.0); Hemoglobin 16.5 g/dL (12.2-16.2); Mean Corpuscular Hemoglobin 23.6 pg (28.0-32.0); Mean Corpuscular Hgb Conc. 30.7 g/dL (32.0-36.0); Mean Corpuscular Volume 76.8 fL (80.0-100.0); Monocytes % (auto) 1.3 % (0.0-12.0); Neutrophils % (auto) 92.4 % (37.0-80.0); Platelet Count (auto) 567 10^3/uL (140-450); Red Blood Cells 6.97 10^6/uL (4.0-5.20); Red Cell Distribution Width 19.2 % (11.8-14.3); White Blood Cell 13.8 10^3/uL (4.4-10.8)
[2024-08-15 10:27] LABS: Chloride 100 mmol/L (98-107); Sodium 136 mmol/L (136-145)
[2024-08-15 10:28] LABS: Anion Gap 9 (5-15); Carbon Dioxide 27 mmol/L (20-31)
[2024-08-15 10:29] LABS: Calcium 9.9 mg/dL (8.7-10.4)
[2024-08-15 10:33] LABS: Blood Urea Nitrogen 15 mg/dL (9-23)
[2024-08-15 10:58] LABS: Glucose 198 mg/dL (74-106)
[2024-08-15 11:26] LABS: BUN/Creatinine Ratio 15.8 (10.0-20.0)
--- NOTE | 2024-08-15 15:23 | DVHPNRES ---
Progress Note Date Seen: Aug 15, 2024 Resident Creating Document: KRISTOFER RUTH RESIDENT Medical Necessity Reason Pt with a Central, PICC or Fol: No Subjective Review of Systems This is a 69-year-old female with a past medical history of hypertension, COPD, and heart failure who presented to the hospital with shortness of breath that began one day prior to admission. The episode was also associated with chest pain. She was started on nebulized bronchodilators. She denied cough, fever, or any other associated symptoms. A chest X-ray showed chronic bilateral interstitial opacities. Echocardiogram demonstrated a preserved ejection fraction of 55% without evidence of pericardial effusion. Chest CT confirmed underlying COPD with emphysematous changes and bibasilar atelectasis.An incidental finding of empty sella syndrome was noted on head CT. This is often associated with intracranial or intracranial hypertension but is not clinically correlated at this time. She is currently on 3L nasal cannula, above her home baseline of 2L. Compared to yesterday, she continues to report persistent dyspnea. Additionally, she has mild wheezing on exam, and abdominal bloating due to constipation. She has not had a bowel movement in the past two days, and was started on Miralax. Patient reports: No new complaints Changes from previous H/P or p: No Changes Objective vital signs Vital Sign Date Time Temp Pulse Resp B/P (MAP) Pulse Ox O2 Delivery O2 Flow Rate FiO2 08/15/24 14:00 80 18 99 08/15/24 13:54 Nasal Cannula 2.0 08/15/24 13:54 28 08/15/24 13:00 97.5 128/74 (92) 97.5 Total Intake and Output 08/14/24 08/14/24 08/15/24 15:00 23:00 07:00 Intake Total 100 ml 1840 ml 1000 ml Output Total 700 ml Balance 100 ml 1140 ml 1000 ml medications Current Medications Medications Dose Ordered Sig/Kaila Route Start Time Stop Time Status Last Admin Dose Admin Atorvastatin Calcium 10 mg HS PO 08/12/24 22:00 08/14/24 21:05 10 MG Metoprolol Tartrate 25 mg BID PO 08/12/24 10:00 08/15/24 10:26 25 MG Losartan Potassium 50 mg DAILY PO 08/12/24 10:00 08/15/24 10:25 50 MG Ondansetron HCl 4 mg Q4HP PRN IV 08/12/24 05:00 Enoxaparin Sodium 40 mg DAILY SC 08/12/24 10:00 08/15/24 10:26 40 MG Acetaminophen 650 mg Q6HP PRN PO 08/12/24 05:00 08/13/24 15:46 650 MG Nitroglycerin 0.4 mg Q5MINP PRN SL 08/12/24 05:00 Morphine Sulfate 2 mg Q30M PRN IV 08/12/24 05:00 Hold Acetaminophen/ Hydrocodone Bitart 1 tab Q8HPRN PRN PO 08/12/24 13:30 08/14/24 21:23 1 TAB Ipratropium [place] 0.5 mg Q4HWA NEB 08/12/24 19:00 08/15/24 13:54 0.5 MG Piperacillin Sod/ Tazobactam Sod 100 ml @ 25 mls/hr Q8HR IV 08/12/24 22:00 08/15/24 05:33 25 MLS/HR Furosemide 40 mg DAILY IV 08/13/24 10:00 08/15/24 10:27 40 MG Azithromycin 250 ml @ 125 mls/hr DAILY@1000 IV 08/13/24 10:00 08/15/24 10:27 125 MLS/HR Methylprednisolone Sodium Succinate 40 mg BID IV 08/13/24 22:00 08/15/24 10:27 40 MG Levalbuterol HCl 0.625 mg Q4HWA [facility] 08/13/24 18:00 08/15/24 13:54 0.625 MG Polyethylene Glycol 17 gm DAILY PO 08/16/24 10:00 Examination: GENERAL:Normal, HEENT:Normal, NECK:Normal, LUNGS:Abnormal, CVS:Normal, ABDOMEN:Normal, MSK:Normal, SKIN:Normal, NEURO:Normal, :Normal laboratory and microbiology Laboratory Tests 08/15/24 09:35 Test 08/15/24 09:35 Range/Units Serum Glucose 198 H 74-106 mg/dL Microbiology Date/Time Source Procedure Growth Status 08/13/24 11:43 Voided Urine Urine Culture - Final Complete 08/13/24 05:45 Nose MRSA Screen - Final Complete 08/12/24 10:40 Blood Blood Culture - Preliminary NO GROWTH AFTER 72 HOURS OF INCUBATION. Resulted Problem List/Assessment/Plan Problem List/Assessment/Plan Acute on chronic hypoxic respiratory failure Pneumonia gram (+) vs gram (-), atypicals Pancytosis, possible due to sepsis, r/o myeloproliferative disorder COPD exacerbation, emphysematous Obesity Hypertension Dyslipidemia Empty sella sd constipation Plan: miralax 17 mg powder Zosyn IV Azithromycin po prednisone 40mg daily Panculture ordered COVID and flu (-) DuoNebs q4wa Echo shows EF 55%, no significant abnormalities Maintain saturation above 92, thru [place]. patient is back at her baseline Ordered blood smear, epo, pending case discussed with code status:full code Plan discussed with: Patient My Orders My Orders Orders - KRISTOFER RUTH RESIDENT Procedure Category Date Status Time Polyethylene Glycol PHA 08/16/24 In Process 17g Powder (Miralax 10:00 Dietary Evaluation Review Recommendations by RD: Protein Supplementation Comments: 1) Initiate Glucerna bid d/t decreased appetite secondary to SOB 2) Collect HbA1c d/t elevated BG levels 3) Refer to outpatient RD/CDCES for weight management 4) Follow-up with cardiology and pulmonology 5) Continue to monitor I&O, labs, and skin integrity Expected Outcomes/Goals: 1) appetite and labs to improve 2) f/u in 3-5 days Date of Service: Aug 15, 2024 Billing Provider: ALYSE RAVI MD Common Visit Codes: [id number] INP/OBS CARE(HIGH) KRISTOFER RUTH RESIDENT Aug 15, 2024 15:23 ALYSE RAVI MD Aug 16, 2024 08:23
[2024-08-15] MEDS: POLYETHYLENE GLYCOL 17 GM PWDR PO ONE (16:37)
[2024-08-16] VITALS (10 sets, daily range): BP systolic 136–165; BP diastolic 71–85; PULSE 79–113; RESP 16–20; TEMP 37.1; O2SAT 93–100
[2024-08-16] MEDS ORDERED: PRED20TA2 PO (07:10)
[2024-08-16] MEDS ORDERED: AZIT-43 PO (07:10)
[2024-08-16] MEDS ORDERED: ATOR20TA50 PO (07:10)
[2024-08-16] MEDS ORDERED: MET25T PO (07:10)
[2024-08-16] MEDS ORDERED: LEVAAER IN (07:10)
[2024-08-16] MEDS ORDERED: LOSA-534 PO (07:10)
--- NOTE | 2024-08-16 07:21 | DVHDSRES ---
Discharge Summary Date of Admission Resident Creating Document: LARRY GOLDBERG RESIDENT Aug 12, 2024 at 04:55 Date of Discharge: Aug 16, 2024 Admitting Diagnosis Pneumonia Labs/Diagnostic Data: Laboratory Results Test 08/15/24 09:35 08/14/24 06:13 08/13/24 13:23 08/13/24 11:43 White Blood Count 13.8 10^3/uL (4.4-10.8) Red Blood Count 6.97 10^6/uL (4.0-5.20) Hemoglobin 16.5 g/dL (12.2-16.2) Hematocrit 53.5 % (36.0-46.0) Mean Corpuscular Volume 76.8 fL (80.0-100.0) Mean Corpuscular Hemoglobin 23.6 pg (28.0-32.0) Mean Corpuscular Hemoglobin Concent 30.7 g/dL (32.0-36.0) Red Cell Distribution Width 19.2 % (11.8-14.3) Platelet Count 567 10^3/uL (140-450) Mean Platelet Volume 7.6 fL (6.9-10.8) Neutrophils (%) (Auto) 92.4 % (37.0-80.0) Lymphocytes (%) (Auto) 6.0 % (10.0-50.0) Monocytes (%) (Auto) 1.3 % (0.0-12.0) Eosinophils (%) (Auto) 0.0 % (0.0-7.0) Basophils (%) (Auto) 0.3 % (0.0-2.0) Neutrophils # (Auto) 12.7 10 ^3/uL (1.6-8.6) Lymphocytes # (Auto) 0.8 10 ^3/uL (0.4-5.4) Monocytes # (Auto) 0.2 10 ^3/uL (0-1.3) Eosinophils # (Auto) 0 10 ^3/uL (0-0.8) Basophils # (Auto) 0 10 ^3/uL (0-0.2) Nucleated Red Blood Cells 0.2 % Sodium Level 136 mmol/L (136-145) Potassium Level 4.0 mmol/L (3.5-5.1) Chloride Level 100 mmol/L (98-107) Carbon Dioxide Level 27 mmol/L (20-31) Anion Gap 9 (5-15) Blood Urea Nitrogen 15 mg/dL (9-23) Creatinine 0.95 mg/dL (0.550-1.02) Glomerular Filtration Rate Calc 64 mL/min (>90) BUN/Creatinine Ratio 15.8 (10.0-20.0) Serum Glucose 198 mg/dL (74-106) Calcium Level 9.9 mg/dL (8.7-10.4) Platelet Estimate Increased Giant Platelets Moderate Hypochromasia (manual) Moderate Microcytosis Slight Magnesium Level 2.1 mg/dL (1.6-2.6) Total Bilirubin 0.7 mg/dL (0.2-1.0) Aspartate Amino Transferase (AST) 21 U/L (13-40) Alanine Aminotransferase (ALT) 15 U/L (7-40) Alkaline Phosphatase 100 U/L (46-116) Total Protein 7.2 g/dL (5.7-8.2) Albumin 4.2 g/dL (3.2-4.8) Iron Level 50 ug/dL (50-170) Ferritin 58.7 ng/mL (10-291) Urine Color Light-yellow (Yellow) Urine Clarity Clear (Clear) Urine pH 6.0 (5.0-9.0) Urine Specific [place] 1.010 (1.001-1.035) Urine Protein Negative (Negative) Urine Ketones Negative (Negative) Urine Blood Negative /uL (Negative) Urine Nitrite Negative (Negative) Urine Bilirubin Negative (Negative) Urine Urobilinogen Normal mg/dL (Negative) Urine Leukocyte Esterase 1+ /uL (Negative) Urine RBC 1 /hpf (0 - 4) Urine Microscopic WBC 3 /HPF (0-5) Urine Squamous Epithelial Cells Few /hpf (<5) Urine Bacteria Few /hpf (None Seen) Urine Hyaline Casts Few /lpf (0 - 2) Urine Glucose Normal mg/dL (Normal) Urine Opiates Screen Neg (NEGATIVE) Urine Fentanyl Screen Neg (NEGATIVE) Urine Barbiturates Screen Neg (NEGATIVE) Urine Phencyclidine Screen Neg (NEGATIVE) Urine Amphetamines Screen Neg (NEGATIVE) Urine Benzodiazepines Screen Neg (NEGATIVE) Urine Cocaine Screen Neg (NEGATIVE) Urine Cannabinoids Screen Neg (NEGATIVE) Test 08/13/24 09:50 08/12/24 14:47 08/12/24 11:17 08/12/24 10:36 Reticulocyte Count (auto) 1.77 % (0.5-1.5) Lactate Dehydrogenase 355 U/L (120-246) Influenza Type A Antigen Negative (Negative) Influenza Type B Antigen Negative (Negative) SARS-CoV-2 Antigen (Rapid) Negative (NEGATIVE) Prothrombin Time 11.7 sec (9.3-11.8) Prothrombin Time INR 1.12 (0.9-1.15) Activated Partial Thromboplast Time 34.5 SEC (24.5-34.5) Lactic Acid Level 1.4 mmol/L (0.4-2.0) Test 08/12/24 06:40 08/12/24 00:09 08/11/24 21:08 08/11/24 20:54 D-Dimer, Quantitative 0.38 mg/L FEU (0.0-0.49) Troponin I High Sensitivity 6 ng/L (</=34) B-Type Natriuretic Peptide 39.48 pg/mL (0-100) POC Glucose 144 mg/dl (70-106) Other Laboratory Tests 08/15/24 09:35 Brief Hx & Hospital Course: This is a 69-year-old female presents for evaluation of shortness for breath. Past Medical History: Hypertension, COPD, CHF, home O2 at 2-3lts Past surgical history: Cholecystectomy, appendectomy Family History: Noncontributory SH: Smoke: No. ALCOHOL: none. Drugs: None Patient presents with a one day history of worsening shortness for breath with associated chest pressure. Patient has been using her inhaler and nebulizer without relief of the symptoms. Denies cough or fever. No other acute complaints reported. On my initial assessment, patient was seen and examined at bedside. She stated having shortness of breath, mild chest tightness, denies any abdominal pain, dysuria, nausea, vomiting, diarrhea, constipation, dizziness, lightheadedness. She's currently tolerating diet. Patient was initially treated for fluid overload and pneumonia. She was started on IV Lasix and broad-spectrum antibiotics, cultures were sent, she was negative for COVID and influenza. Patient has had significant clinical improvement throughout her hospitalization, a high-resolution chest CT revealed signs of COPD, emphysema, and atelectasis. Patient was started on incentive spirometry, we continued Solu-Medrol and breathing treatments. 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 We will order an erythropoietin level, LDH, reticulocytes, iron panel, patient will benefit from further workup in the outpatient setting, to rule out any myeloproliferative disorder. She currently states feeling well, denies any significant shortness of breath, chest pain, lightheadedness, dizziness, currently tolerating diet, ambulatory. Physical examination as below: General: Awake, alert, no distress HEENT: Head is normocephalic and atraumatic. Pupils are equal, round, and reactive to light. Extraocular muscles are intact. No nasal discharge. No facial trauma. Intraoral exam shows moist mucous membranes with no tonsillar enlargement or exudate. Neck: Supple with no cervical lymphadenopathy. Heart: Regular rate without murmur, rub, or gallop. Lungs: Scattered crackles and wheezing Abdomen: No external sign of injury. Bowel sounds are present. Abdomen is soft, nontender. No rebound, no guarding, no rigidity. There are no palpable masses. There is no flank pain on exam. Extremities: Strong peripheral pulses. There is no clubbing, no cyanosis, and no edema. Skin: No rash. Neurologic: Cranial nerves II-XII intact without motor, sensory, or cerebellar deficit, no asterixis. Patient will be discharge home, she will continue home medications as prescribed. Patient will continue taking azithromycin, Xopenex as needed, it was prednisone for 3 more days. She will follow-up with PCP in 1-2 weeks. Patient verbalized understanding and agree with the DC plan, we spent over 30 minutes explaining the plan. Case was discussed with Dr. Barragan Operations or Procedures [place] [address] Ph: [phone] DIAGNOSTIC IMAGING Diagnostic Imaging Report : [id number] Signed PATIENT: NAREN SCHRADER BACCT: [id number] UNIT: [id number] : 1955 LOC: OVERFLOW ROOM / BED: [address] [place] [address] / A AGE / SEX: 69 / F ADM STATUS: ADM IN SERVICE 1001 ORDERING PHYSICIAN: LARRY GOLDBEGR RESIDENT PROCEDURE(s): ECIDC - ECHO 2D MODE CARDIAC DOP REASON: chf ORDER NUMBER(s): [id number], ACCESSION NUMBER(s): [id number] APPROVED REPORT EXAM: LIMITED Two-dimensional and M-mode echocardiogram with Doppler and color Doppler. Blood Pressure: 137/65 mmHg INDICATION CHF RISK FACTORS Height: 5' 7", Weight: 231 DIMENSIONS LVDd 4.5 (3.8-5.7cm) LA (2D) 3.7 (1.9-4.0cm) Aortic Root 3.0 (2.0- 3.7cm) LVDs 3.2 (2.5-4.0cm) LA (MM) (1.9-4.0cm) Aortic Cusp Exc 1.7 (1.5- 2.0cm) EF (%) 55.0 (55-70%) Rt. Atrium 3.9 (1.9-4.0cm) Asc. Aorta cm IVSd 1.0 (0.7-1.1cm) RV (D) (1.8-2.4cm) PWd 1.0 (0.7-1.1cm) Mitral Valve Mitral Mitral Stenosis E wave 0.70m/s MV Mean GR. mmHg A wave 0.80m/s MV Peak GR. mmHg E/A ratio 0.9 2D MVA cm2 Aortic Valve Aortic Valve Aortic Stenosis V1 0.60m/s AO Mean GR. 3mmHg V2 1.30m/s AO Peak GR. 7mmHg LVOT Diameter 2.2 (1.8-2.4cm) Doppler SULEMA 1.75cm2 Other Information Quality : Technically Limited Rhythm : Technically limited study due to body habitus. Conclusion lvef 55-60% by visual estimate rv not well seen valves limited eval no severe valve abnormalities noted SIGNED BY: BASHIR GOMEZ MD SIGNED DATE/TIME: 08/12/24 1555 CC: [address] [address] Ph: [phone] DIAGNOSTIC IMAGING Diagnostic Imaging Report : [id number] Signed PATIENT: NAREN SCHRADER BACCT: [id number] UNIT: [id number] : 1955 LOC: ER ROOM / BED: / AGE / SEX: 69 / F ADM STATUS: REG ER SERVICE 51 ORDERING PHYSICIAN: YONY COPPOLA MD PROCEDURE(s): CXRP - CHEST PORTABLE REASON: sob ORDER NUMBER(s): [id number], ACCESSION NUMBER(s): [id number] CHEST RADIOGRAPH Indication: sob Technique: Single frontal view of the chest was obtained COMPARISON: XY CHEST PORTABLE on DOS: 06/10/23, XY CHEST PORTABLE on DOS: 06/08/23, XY CHEST PORTABLE on DOS: 06/07/23, XY CHEST PORTABLE on DOS: 06/06/23, XY CHEST PORTABLE on DOS: 06/04/23 FINDINGS: Lines and Tubes: None Lungs: Stable diffuse chronic appearing bilateral interstitial pulmonary opacities throughout all lung zones, predominating at the bases. Pleura: No effusion. No pneumothorax. Cardiomediastinal contours: Unremarkable Bones: Unremarkable IMPRESSION: 1. No acute disease. 2. Stable diffuse chronic appearing bilateral interstitial pulmonary opacities. ATED BY: JUNITO HO MD DICTATED DATE/TIME: 08/12/24120 SIGNED BY: JUNITO HO MD SIGNED DATE/TIME: 08/12/24120 CC: [place] [address] Ph: [phone] DIAGNOSTIC IMAGING Diagnostic Imaging Report : [id number] Signed PATIENT: NAREN SCHRADER BACCT: [id number] UNIT: [id number] : 1955 LOC: TELE-CENTR ROOM / BED: 021T / A AGE / SEX: 69 / F ADM STATUS: ADM IN SERVICE 10 ORDERING PHYSICIAN: JESSICA BARRAGAN MD PROCEDURE(s): CXRHIRES - HI-RESOLUTION CHEST CT REASON: OPACITIES VS FIBROSIS ORDER NUMBER(s): [id number], ACCESSION NUMBER(s): [id number] Procedure: CT HI-RESOLUTION CHEST CT Reason for study/Clinical History: OPACITIES VS FIBROSIS Comparison Study: None available at time of dictation. Exam Date: 08/12/2024 08:29 PM TECHNIQUE: Multidetector CT of the chest was performed from the lung apices to the upper abdomen without the use of intravenous contract. Axial, coronal and sagittal multiplanar reformats were performed. Radiation Dose Information: CT Dose: CTDI volume is 25 mGy. Dose-length product is 250 mGy*cm The dose indicators for CT are the volume Computed Tomography (CT) Dose Index (CTDIvol) and the Dose Length Product (DLP), and are measured in units of mGy and mGy-cm, respectively. These indicators are not patient dose, but values generated from the CT scanner acquisition factors. The report includes radiation exposure data for exposures received during this examination. FINDINGS: Lower neck: Normal thyroid. Lungs: Diffuse COPD/emphysema. There is bibasilar atelectasis. No airspace opacities are present. Heart/Vascular Structures: Normal heart size. No pericardial effusion. Lymph Nodes: No adenopathy Pleura: No pleural effusion or significant pneumothorax. Musculoskeletal: No acute osseous abnormality. Soft tissues: Normal. Upper abdomen: Limited portions of the upper abdomen are unremarkable. IMPRESSION: Diffuse COPD/emphysema. There is bibasilar atelectasis. No airspace opacities are present. Radiation optimization: All CT scans at this facility use at least one of these dose optimization techniques: automated exposure control mA and/or kV adjustment per patient size (includes targeted exams where dose is matched to clinical indication) or iterative reconstruction. ATED BY: DIYA BELLAMY MD DICTATED DATE/TIME: 08/13/24548 SIGNED BY: DIYA BELLAMY MD SIGNED DATE/TIME: 08/13/2449 CC: [place] [address] Ph: [phone] DIAGNOSTIC IMAGING Diagnostic Imaging Report : [id number] Signed PATIENT: NAREN SCHRADER BACCT: [id number] UNIT: [id number] : 1955 LOC: [facility] ROOM / BED: [facility] / A AGE / SEX: 69 / F ADM STATUS: ADM IN SERVICE 9 ORDERING PHYSICIAN: LARRY GOLDBERG RESIDENT PROCEDURE(s): HWOCT - HEAD WITHOUT CONTRAST REASON: headache ORDER NUMBER(s): [id number], ACCESSION NUMBER(s): [id number] EXAM: HEAD WITHOUT CONTRAST HISTORY: headache COMPARISON: None TECHNIQUE: Axial images were obtained and reformatted in coronal and sagittal planes. All CT scans at this medical facility are performed using dose modulation techniques as appropriate to a performed exam including the following: Automated exposure control was utilized; adjustment of the MA and/or KV according to patient size; and use of iterative reconstruction technique. CT Dose: CTDI volume is 59.31 mGy. Dose-length product is 1050.16 mGy*cm FINDINGS: Supratentorial Region: No evidence for large acute territorial ischemia. No intracranial hemorrhage is noted. Posterior Fossa: No acute abnormality. Brainstem: Unremarkable. Sellar/Suprasellar Region: Fluid-filled Sella with a diminutive pituitary gland noted. Ventricles, Cisterns, Sulci: Age-appropriate. Orbits: Unremarkable. Paranasal Sinuses: Unremarkable. Mastoid Air Cells: Unremarkable. Vasculature: Unremarkable. Bones/Soft Tissues: No acute abnormality. Other: None. IMPRESSION: 1. No acute intracranial process. 2. Empty Sella Syndrome, commonly an incidental finding of no clinical significance but there exists a well-established association with idiopathic intracranial hypertension. Correlate clinically. ATED BY: EVA RICHARDS MD DICTATED DATE/TIME: 08/13/24 1028 SIGNED BY: EVA RICHARDS MD SIGNED DATE/TIME: 08/13/24 1028 CC: Condition at Discharge: Guarded Final Diagnosis/Problems List Acute on chronic hypoxic respiratory failure COPD exacerbation, emphysematous Pneumonia gram (+) vs gram (-), atypicals Pancytosis, possible due to sepsis, r/o myeloproliferative disorder Obesity Hypertension Dyslipidemia Discharge Disposition: Home Discharge Instruct/Medications Diet: Cardiac 2g Na,low cholest Activity: No Restrictions, As Tolerated Follow Up/Referral: fu with dr. pacheco in 1-2 weeks referral to heel cover softener, dr. guerrero Medications: continue meds as prescribed: azithromycin, prednisone, xopenex as needed Discharge Statement: "Patient was advised to return to the ER or call 911 if any headaches, dizziness, shortness of breath, chest pain, abdominal pain, bleeding, fevers, or worsening of medical condition. Patient was counseled about treatment plan, medications, possible side effects, patientverbalized understanding. All questions were answered to the best of my ability. This discharge took greater then 30 minutes in planning, reviewing documentation, counseling the patient, and discussing with other team members." ASSESSMENT ASSESSMENT Assessment copd exacerbation Date of Service: Aug 16, 2024 Billing Provider: JESSICA BARRAGAN MD Common Visit Codes: 70804-EWK/OBS DISCH DAY >30min LARRY GOLDBERG RESIDENT Aug 16, 2024 07:21 JESSICA BARRAGAN MD Aug 16, 2024 11:33
[2024-08-16] MEDS: POLYETHYLENE GLYCOL 17 GM PWDR PO SCH (09:29)
== END 2024-08-16 09:44 | disposition home or self-care (01) | DRG 871 ==
LOC: ER 20:30 → OVERFLOW 08-12 04:55 → TELE-CENTR 08-12 21:35 → CENTRAL 08-15 02:00
PROVIDERS: ADMIT Internal Medicine; ATTEND Internal Medicine
DX: A41.9 Sepsis, unspecified organism (principal); I50.43 Acute on chronic combined systolic (congestive) and diastolic (congestive) heart failure; J15.69 Pneumonia due to other Gram-negative bacteria; J96.21 Acute and chronic respiratory failure with hypoxia; J15.9 Unspecified bacterial pneumonia; J44.1 Chronic obstructive pulmonary disease with (acute) exacerbation; J44.0 Chronic obstructive pulmonary disease with (acute) lower respiratory infection; D61.818 Other pancytopenia; Z20.822 Contact with and (suspected) exposure to COVID-19; I11.0 Hypertensive heart disease with heart failure; E66.9 Obesity, unspecified; E78.5 Hyperlipidemia, unspecified; K59.00 Constipation, unspecified; Z88.5 Allergy status to narcotic agent; Z90.49 Acquired absence of other specified parts of digestive tract; Z79.899 Other long term (current) drug therapy; Z68.36 Body mass index [BMI] 36.0-36.9, adult
CPT/HCPCS: 36415; 70450; 71045; 71250; 80048; 80053; 80307; 81001; 82668; 82728; 82962; 83540; 83605; 83615; 83735; 83880; 84484; 85025; 85045; 85379; 85610; 85730; 87040; 87081; 87086; 87426; 87804; 93005; 93306; 94640; 96374; 96375; 97163; 99291; G0378; J2543

== ENCOUNTER 2024-09-14 07:12 | Inpatient (IN) | payer OTHER ==
[2024-09-14] VITALS (15 sets, daily range): BP systolic 134–184; BP diastolic 62–80; PULSE 85–122; RESP 18–26; TEMP 97.5–98; O2SAT 91–99
[~2024-09-14] VITALS: Ht 177.8 cm; Wt 110.3 kg
[~2024-09-14 07:12] MED LIST changes: +ATOR20TA50 PO; +AZIT-43 PO; +FLUT1AER3 INH; +HYDR-4798 PO; +LEVA1AER INH; +LEVAAER IN; +NITR0.4S29 SL; -UMEC1AER
--- NOTE | 2024-09-14 07:22 | ED.PDOC ---
SOB-HPI HPI Comments 69-year-old female presents to the emergency department via EMS with a chief complaint of shortness of breath onset 10 hours. Per EMS, patient has been experiencing shortness of breath for the past 10 hours, did several breathing treatments on her own with no improvement of symptoms. Upon EMS arrival, O2 sat was 90% on 2.5L, with diminished lung sounds, was given a breathing treatment with no signs of relief, was placed on c-pap, O2 sat improved to 100%. Upon ED arrival, patient states she is experiencing chest pain, BP 150/90. PMHx COPD, CHF, HLD, [place]. Denies nausea, vomiting, diarrhea, headache, dizziness, abdominal pain, fevers, chills. No other symptoms or modifying factors present at this time. Chief Complaint: Shortness of Breath Time Seen by MD: 07:11 Primary Care Provider: DAO Flowers notes: Medications, Allergies Information Source: Patient, Emergency Med Personnel Mode of Arrival: EMS Severity: Moderate Timing: Hours Duration: Since onset Context: At Rest History of: COPD, CHF Prehospital treatment: Breathing Tx, C-Pap Modifying Factors: Nothing Associated Signs and Symptoms: Chest Pain Quality: Sharp Radiation: No Radiation Past Medical History PAST MEDICAL HISTORY: CHF, COPD, High Lipids, HTN, [place] Surgical History: Appendectomy, Tubal Ligation HIDE SPLITTER History: Denies all HIDE SPLITTER Hx Family History Family History: Unknown Social History Smoker: Non-Smoker Alcohol: Denies ETOH Use Drugs: Denies Drug Use Lives In: Home Constitutional: denies: chills, diaphoresis, fatigue, fever, malaise, sweats, weakness, others EENTM: denies: blurred vision, double vision, ear bleeding, ear discharge, ear drainage, ear pain, ear ringing, eye pain, eye redness, hearing loss, mouth pain, mouth swelling, nasal discharge, nose bleeding, nose congestion, nose pain, photophobia, tearing, throat pain, throat swelling, voice changes, others Respiratory: reports: shortness of breath; denies: cough, hemoptysis, orthopnea, SOB at rest, SOB with excertion, stridor, wheezing, others Cardiovascular: reports: chest pain; denies: dizzy spells, diaphoresis, Dyspnea on exertion, edema, irregular heart beat, left arm pain, lightheadedness, palpitations, PND, syncope, others Gastrointestinal: denies: abdomen distended, abdominal pain, blood streaked bowels, constipated, diarrhea, dysphagia, difficulty swallowing, hematemesis, melena, nausea, poor appetite, poor fluid intake, rectal bleeding, rectal pain, vomiting, others Genitourinary: denies: abnormal vagina bleeding, burning, dyspareunia, dysuria, flank pain, frequency, hematuria, incontinence, pain, , vagina discharge, urgency, others Neurological: denies: dizziness, fainting, headache, left sided numbness, left sided weakness, numbness, paresthesia, pre-existing deficit, right sided numbness, right sided weakness, seizure, speech problems, tingling, tremors, weakness, others Musculoskeletal: denies: back pain, gout, joint pain, joint swelling, muscle pain, muscle stiffness, neck pain, others Integumetry: denies: bruises, change in color, change in hair/nails, dryness, laceration, lesions, lumps, rash, wounds, others Allergic/Immunocompromised: denies: Difficulty Healing, Frequent Infections, Hives, Itching, others Hematologic/Lymphatic: denies: anemia, blood clots, easy bleeding, easy bruising, swollen glands, others Endocrine: denies: excessive hunger, excessive sweating, excessive thirst, excessive urination, flushing, intolerance to cold, intolerance to heat, unexplained weight gain, unexplained weight loss, others Psychiatric: denies: anxiety, bipolar disorder, depression, hopeless, panic disorder, schizophrenia, sleepless, suicidal, others All Other Systems: Reviewed and Negative Physical Exam General Appearance: Moderate Distress, Severe Distress HEENT: Normal ENT Inspection, Pharynx Normal, TMs Normal Neck: Full Range of Motion, Non-Tender, Normal, Normal Inspection Respiratory: Accessory Muscle Use, Chest Non-Tender, Decreased Breath Sounds, Respiratory Distress, Wheezing Cardiovascular: No Edema, No JVD, No Murmur, No Gallop, Tachycardia Breast Exam: Deferred Gastrointestinal: No Organomegaly, Non Tender, No Pulsatile Mass, Normal Bowel Sounds, Soft Genitalia: Deferred Pelvic: Deferred Rectal: Deferred Extremities: No calf tenderness, Normal capillary refill, No pedal edema Musculoskeletal : Apperance: Normal Neurologic: Alert, psychologist counseling II-XII nml as Tested, Motor Weakness, Normal Affect, Normal Mood, No Sensory Deficits Cerebellar Function: Normal Reflexes: Normal Skin: Dry, Normal Color, Warm Lymphatic: No Adenopathy EKG EKG : Pulse Rate (adult): 124 [place]: Normal Cardiac Rhythm: ST Was a procedure done? Was a procedure done?: No Differential Dx Differential Diagnosis: Asthma, CHF, COPD, Pneumonia X-Ray, Labs, Meds, VS Vital Signs Date Time Temp Pulse Resp B/P (MAP) Pulse Ox O2 Delivery O2 Flow Rate FiO2 09/14/24 08:27 121 140/77 99 Facial BiPAP Mask 30 09/14/24 07:28 124 09/14/24 07:25 98.4 130 26 157/94 (115) 100 98.4 09/14/24 07:24 124 09/14/24 07:20 124 Lab Test 09/14/24 08:30 09/14/24 08:16 09/14/24 07:29 Range/Units Urine Color Pending Urine Clarity Pending Urine pH Pending Urine Specific [place] Pending Urine Protein Pending Urine Ketones Pending Urine Blood Pending Urine Nitrite Pending Urine Bilirubin Pending Urine Urobilinogen Pending Urine Leukocyte Esterase Pending Urine RBC Pending Urine Microscopic WBC Pending Urine Squamous Epithelial Cells Pending Urine Bacteria Pending Urine Glucose Pending Blood Gas Specimen Type Arterial Blood Gas Sample Site Left radial Blood Gas Patient Temperature 37.0 Arterial Blood Date Drawn [id number] Arterial Blood pH 7.361 7.350-7.450 Arterial Blood Partial Pressure CO2 50.9 H 32.0-45.0 mmHg Arterial Blood Partial Pressure O2 355.5 *H 83.0-108.0 mmHg Arterial Blood HCO3 28.2 H 21.0-28.0 mmol/L Arterial Blood Oxygen Saturation 100.0 H 94.0-98.0 % Arterial Blood Base Excess 1.6 -2.0-3.0 mmol/L Arterial Blood Oxyhemoglobin 98.5 H 94.0-98.0 % Arterial Blood Carboxyhemoglobin 0.6 0.5-1.5 % Arterial Blood Methemoglobin 0.9 0.0-1.5 % Dao Test Yes Blood Gas Total Hemoglobin 17.90 H 12.0-16.0 g/dL Blood Gas Modality Mask - bipap FiO2 % 80.0 Blood Gas Critical Value Read Back Yesbi Blood Gas Notified Whom nic Deleon md Blood Gas Notified Time [id number] Blood Gas Notified By rolf Bundy rrt White Blood Count 15.9 H 4.4-10.8 10^3/uL Red Blood Count 7.33 H 4.0-5.20 10^6/uL Hemoglobin 17.8 H 12.2-16.2 g/dL Hematocrit 55.9 H 36.0-46.0 % Mean Corpuscular Volume 76.2 L 80.0-100.0 fL Mean Corpuscular Hemoglobin 24.2 L 28.0-32.0 pg Mean Corpuscular Hemoglobin Concent 31.8 L 32.0-36.0 g/dL Red Cell Distribution Width 21.0 H 11.8-14.3 % Platelet Count 773 *H 140-450 10^3/uL Mean Platelet Volume 7.6 6.9-10.8 fL Neutrophils (%) (Auto) 87.1 H 37.0-80.0 % Lymphocytes (%) (Auto) 8.8 L 10.0-50.0 % Monocytes (%) (Auto) 2.7 0.0-12.0 % Eosinophils (%) (Auto) 1.0 0.0-7.0 % Basophils (%) (Auto) 0.4 0.0-2.0 % Neutrophils # (Auto) 13.8 H 1.6-8.6 10 ^3/uL Lymphocytes # (Auto) 1.4 0.4-5.4 10 ^3/uL Monocytes # (Auto) 0.4 0-1.3 10 ^3/uL Eosinophils # (Auto) 0.2 0-0.8 10 ^3/uL Basophils # (Auto) 0.1 0-0.2 10 ^3/uL Nucleated Red Blood Cells 0.3 % Platelet Estimate Marked Large Platelets Few D-Dimer, Quantitative 0.41 0.0-0.49 mg/L FEU Sodium Level 139 136-145 mmol/L Potassium Level 4.3 3.5-5.1 mmol/L Chloride Level 100 98-107 mmol/L Carbon Dioxide Level 30 20-31 mmol/L Anion Gap 9 5-15 Blood Urea Nitrogen 18 9-23 mg/dL Creatinine 0.94 0.550-1.02 mg/dL Glomerular Filtration Rate Calc 65 >90 mL/min BUN/Creatinine Ratio 19.1 10.0-20.0 Serum Glucose 146 H 74-106 mg/dL Calcium Level 9.9 8.7-10.4 mg/dL Troponin I High Sensitivity 6 </=34 ng/L B-Type Natriuretic Peptide 14.37 0-100 pg/mL Current Medications Medications (Trade) Dose Ordered Sig/Kaila Route Start Time Stop Time Status Last Admin Ipratropium [place] (Atrovent Medneb) 1 mg ONCE ONCE N 09/14/24 07:30 09/14/24 07:31 DC 09/14/24 07:54 Albuterol (Ventolin Medneb) 20 mg ONCE ONCE N 09/14/24 07:30 09/14/24 07:31 DC 09/14/24 07:53 Chest x-ray shows: IMPRESSION: Pulmonary congestion and edema. Pneumonia cannot be excluded. Upon arrival, the patient was continued on the BiPAP machine. The patient was given a continuous breathing treatment of albuterol and Atrovent. The patient was very anxious so she was also given Ativan 1 mg IV push The troponin level and BNP are within normal limits The patient's CBC shows an elevated white blood cell count of 15.9 but otherwise within normal limits. The chemistry panel is within normal limits. The D-dimer is negative At this time, the patient was being admitted to the hospitalist An ABG was done and the PO2 was 355 so we did turn down the FiO2 to 30% The urine test is pending The patient was having some relief after the albuterol and Atrovent treatment. We have now added Lasix 40 mg IV push secondary to the findings on the chest x- ray At this time, the patient was being admitted to the hospitalist The patient understands and agrees with the management. We told the patient that she no longer needs the BiPAP machine but she states that she needs to have it placed. Images Reviewed?: Images reviewed and evaluated by me Time of 1ST Reevaluation: 07:41 Reevaluation 1ST: Unchanged Patient Education/Counseling: Diagnosis, Treatment, Prognosis Family Education/Counseling: No Family Present Additional Information The following tests were ordered, and results were reviewed by me: TROP -x3, CBC, D-DIMER, BNP, UA, XY CHEST, EKG -x3, BMP, Additional Information was gathered from interviewing the following independent historians: EMS I reviewed and agreed with the following test results read by other providers: XY CHEST I discussed treatment and results with medical personnel and: patient Comprehensive systems review obtained and negative except for what is stated in the HPI. Departure 1 Departure Time of Disposition: 08:41 Impression: Primary Impression: Acute on chronic heart failure with reduced ejection fraction (HFrEF, <= 40%) and combined systolic and diastolic dysfunction Additional Impression: Accelerated hypertension Disposition: 09 ADMITTED INPATIENT Admit to: Tele Condition: Fair Critical Care Note Critical Care Time?: Yes (45 min-critical care time only) Stability Stability form required: Yes Unstable for transfer: Telemetry monitoring (Telemetry monitoring required), ED Physician Assesment (Clinical assesment) Heart Score Heart Score: Heart Score Response (Comments) Value History Moderate Suspicious 1 EKG Repolarization Disturb 1 Age >65 2 Risk Factors >3 or Hx ASHD 2 Troponin Normal limit 0 Total 6 I personally scribed for JENNIFER DELEON MD ([email or web address]) on 09/14/24 at 07:22. Electronically submitted by Alisha Ybarra ([email or web address]). I personally scribed for JENNIFER DELEON MD ([email or web address]) on 09/14/24 at 07:28. Electronically submitted by Alisha Ybarra ([email or web address]). I personally scribed for JENNIFER DELEON MD ([email or web address]) on 09/14/24 at 07:28. Electronically submitted by Alisha Ybarra ([email or web address]). JENNIFER DELEON MD Sep 14, 2024 07:22
[2024-09-14 07:36] LABS: Basophils # (auto) 0.1 10 ^3/uL (0-0.2); Eosinophils # (auto) 0.2 10 ^3/uL (0-0.8); Lymphocytes # (auto) 1.4 10 ^3/uL (0.4-5.4); Lymphocytes % (auto) 8.8 % (10.0-50.0); Monocytes # (auto) 0.4 10 ^3/uL (0-1.3)
[2024-09-14 07:38] LABS: Basophils % (auto) 0.4 % (0.0-2.0); Hematocrit 55.9 % (36.0-46.0); Hemoglobin 17.8 g/dL (12.2-16.2); Mean Corpuscular Hemoglobin 24.2 pg (28.0-32.0); Mean Corpuscular Hgb Conc. 31.8 g/dL (32.0-36.0); Mean Corpuscular Volume 76.2 fL (80.0-100.0); Monocytes % (auto) 2.7 % (0.0-12.0); Neutrophils # (auto) 13.8 10 ^3/uL (1.6-8.6); Neutrophils % (auto) 87.1 % (37.0-80.0); Nucleated Red Blood Cells % 0.3 %; Red Blood Cells 7.33 10^6/uL (4.0-5.20); White Blood Cell 15.9 10^3/uL (4.4-10.8)
[2024-09-14 07:44] LABS: Platelet Count (auto) 773 10^3/uL (140-450)
[2024-09-14 07:46] LABS: Chloride 100 mmol/L (98-107); Potassium 4.3 mmol/L (3.5-5.1); Sodium 139 mmol/L (136-145)
[2024-09-14 07:47] LABS: Anion Gap 9 (5-15); Calcium 9.9 mg/dL (8.7-10.4); Carbon Dioxide 30 mmol/L (20-31)
[2024-09-14 07:52] LABS: BUN/Creatinine Ratio 19.1 (10.0-20.0); Blood Urea Nitrogen 18 mg/dL (9-23)
[2024-09-14] MEDS: ALBUTEROL SULF 2.5 MG/0.5ML(0.5%) NEB SOLN HHN ONE (07:53)
[2024-09-14] MEDS: IPRATROPIUM BROM 0.5 MG/2.5ML INH SOL HHN ONE (07:54)
[2024-09-14] MEDS: NITROGLYCERIN 0.4 MG SL TAB SL ONE (07:57)
[2024-09-14 07:58] LABS: Glucose 146 mg/dL (74-106)
[2024-09-14] MEDS: methylPREDNISolone SOD SUCC 125 MG/2 ML VL IV ONE (07:58)
[2024-09-14] MEDS: methylPREDNISolone SOD SUCC 40 MG/ML VL IV ONE ×3 (08:00)
[2024-09-14] MEDS: LORazepam 2MG/ML-1ML VIAL IV ONE (08:00)
[2024-09-14 08:23] LABS: Platelet Estimate Marked
[2024-09-14 08:24] LABS: Large Platelets FEW
[2024-09-14 08:25] LABS: Base Excess 1.6 mmol/L (-2.0-3.0)
--- NOTE | 2024-09-14 08:26 | DVH ---
EXAM: XR Chest, 1 View CLINICAL INDICATION: sob TECHNIQUE: Frontal view of the chest. COMPARISON: XY CHEST PORTABLE on DOS: 08/11/24, XY CHEST PORTABLE on DOS: 06/10/23, XY CHEST PORTABLE on DOS: 06/08/23, XY CHEST PORTABLE on DOS: 06/07/23, XY CHEST PORTABLE on DOS: 06/06/23 FINDINGS: LUNGS AND PLEURAL SPACES: Pulmonary congestion and edema. Pneumonia cannot be excluded. No pneumot horax. HEART: Unremarkable. No cardiomegaly. MEDIASTINUM: Unremarkable. Normal mediastinal contour. BONES/JOINTS: Unremarkable. No acute fracture. OTHER FINDINGS: . . . IMPRESSION: Pulmonary congestion and edema. Pneumonia cannot be excluded.
[2024-09-14] MEDS: FUROSEMIDE 40 MG/4 ML VIAL IV ONE (08:45)
[2024-09-14 08:46] LABS: Urine Bacteria FEW /hpf (None Seen); Urine Blood Negative /uL (Negative); Urine Clarity Clear (Clear); Urine Color Light-Yellow (Yellow); Urine Protein, UAD 1+ (Negative); Urine Specific Gravity 1.017 (1.001-1.035); Urine Squamous Epithelial Cell FEW /hpf (<5); Urine Urobilinogen Normal (Negative); Urine WBC 2 /HPF (0-5)
[2024-09-14] MEDS: VANCOMYCIN 1GM/200ML PM 200 ML IV ONE (09:00)
[2024-09-14] MEDS: cefTRIAXone 1GM/50ML D5W 50 ML IV ONE (09:07)
[2024-09-14 09:08] LABS: Lactic Acid w/Reflex 2.1 mmol/L (0.4-2.0)
[2024-09-14] MEDS ORDERED: VANCOMYCIN PER PHARMACY 0 MG IV SCH (12:15)
[2024-09-14] MEDS ORDERED: MORPHINE SULFATE INJ 2 MG/ml SYRG IV PRN (12:15)
[2024-09-14] MEDS ORDERED: NITROGLYCERIN 0.4 MG SL TAB SL PRN (12:15)
--- NOTE | 2024-09-14 12:30 | DVHHP2 ---
History of Present Illness Reason for Visit: COPD exacerbation History of Present Illness 69-year-old female presented to the ED with chief complaint of shortness of breath over the past day, patient did several breathing treatments on her own at home with no improvement of symptoms. Upon EMS arrival O2 sat was 90% on 2.5 L with diminished lung sounds, patient was given a breathing treatment but did not show signs of relief and was placed on CPAP, O2 sat improved to 100%. Upon arrival to the ED patient was complaining of chest pain which she described as burning and tightness. Patient had pneumonia in July. Upon talking to patient she believes that she gets panicked while at home and having shortness of breath, and she lives alone, she would like to talk to licensed social worker about her living situation and see if there are any resources. Patient is being admitted to telemetry. Past Medical History CHF, COPD, High Lipids, HTN, [place] Past Surgical History Appendectomy, tubal ligation Family History Denies Smoke: No ALCOHOL: none Drugs: None Lives: Alone Review of Systems Constitutional: No: Fever, Chills, Sweats, Weakness, Malaise, Other Eyes: No: Pain, Vision change, Conjunctivae inflammation, Eyelid inflammation, Other, Redness Respiratory: Shortness of breath, Pleuritic Pain; No: Cough, Dry, SOB with excertion, Wheezing, Hemoptysis, Sputum, Wheezing, Other Cardiovascular: No: Chest Pain, Palpitations, Orthopnea, Paroxysmal Noc. Dyspnea, Edema, Lt Headedness, Other Gastrointestinal: No: Nausea, Vomiting, Abdominal Pain, Diarrhea, Constipation, Melena, Hematochezia, Other Genitourinary: No Dysuria, No Frequency, No Incontinence, No Hematuria, No Ret ention, No Other Musculoskeletal: No: other, neck pain, shoulder pain, arm pain, back pain, hand pain, leg pain, foot pain Skin: No: Rash, Lesions, Jaundice, Bruising, Other Neurological: No: Weakness, Numbness, Incoordination, Change in speech, Confusion, Seizures, Other Allergies: Coded Allergies: Codeine (Verified Allergy, Unknown, 05/30/23) Medications Current Medications Medications Dose Ordered Sig/Kaila Route Start Time Stop Time Status Last Admin Dose Admin Acetaminophen 325 mg Q4HP PRN PO 09/14/24 12:15 UNV Acetaminophen/ Hydrocodone Bitart 1 tab Q4HP PRN PO 09/14/24 12:15 UNV Docusate Sodium 100 mg BIDPRN PRN PO 09/14/24 12:15 UNV Nitroglycerin 0.4 mg Q5MINP PRN SL 09/14/24 12:15 UNV Morphine Sulfate 2 mg Q30M PRN IV 09/14/24 12:15 UNV Atorvastatin Calcium 10 mg HS PO 09/14/24 22:00 UNV Hydrochlorothiazide 25 mg DAILY PO 09/15/24 10:00 UNV Losartan Potassium 50 mg DAILY PO 09/15/24 10:00 UNV Metoprolol Tartrate 25 mg BID PO 09/14/24 22:00 UNV Temazepam 15 mg QHSP PRN PO 09/14/24 12:15 UNV Atorvastatin Calcium 20 mg HS PO 09/14/24 22:00 UNV Vancomycin HCl 0 ml @ 0 mls/hr UD IV 09/14/24 12:15 UNV Ceftriaxone Sodium 50 ml @ 100 mls/hr DAILY@09 IV 09/15/24 09:00 UNV Enoxaparin Sodium 40 mg DAILY SC 09/15/24 10:00 UNV Albuterol 2.5 mg Q4HR NEB 09/14/24 14:00 UNV Ipratropium [place] 0.5 mg Q4HR NEB 09/14/24 14:00 UNV Budesonide 0.5 mg BID NEB 09/14/24 22:00 UNV Exam Vital Signs Vital Signs Date Time Temp Pulse Resp B/P (MAP) Pulse Ox O2 Delivery O2 Flow Rate FiO2 09/14/24 12:14 112 135/62 95 Facial BiPAP Mask 30 09/14/24 12:00 20 09/14/24 10:57 15 09/14/24 07:25 98.4 98.4 General Appearance: Alert, Oriented X3, Cooperative, mild distress HEENT: Atraumatic, PERRLA, EOMI, Mucous membr. moist/pink Respiratory: Normal air movement, Other (Lungs diminished with slight wheezes bilaterally) Cardiovascular: Regular rate, Normal S1, Normal S2, No murmurs Abdominal: Normal bowel sounds, Soft, No tenderness, No hepatospenomegaly, No masses Extremities: No clubbing, No cyanosis, No edema, Normal pulses, No tenderness/swelling Skin: No rashes, No breakdown, No significant lesion Neuro: Normal gait, Normal speech, Strength at 5/5 X4 ext, Normal tone, Sensation intact, Cranial nerves 3-12 NL Psych/Mental Status: Mental status NL, Mood NL Labs/Xrays Labs and imaging reviewed Labs Test 09/14/24 10:47 09/14/24 08:30 09/14/24 08:16 09/14/24 07:29 Range/Units Lactic Acid Level 1.9 0.4-2.0 mmol/L Troponin I High Sensitivity 14 </=34 ng/L Urine Color Light-yellow Yellow Urine Clarity Clear Clear Urine pH 5.0 5.0-9.0 Urine Specific [place] 1.017 1.001-1.035 Urine Protein 1+ H Negative Urine Ketones Negative Negative Urine Blood Negative Negative /uL Urine Nitrite Negative Negative Urine Bilirubin Negative Negative Urine Urobilinogen Normal Negative mg/dL Urine Leukocyte Esterase Negative Negative /uL Urine RBC 1 0 - 4 /hpf Urine Microscopic WBC 2 0-5 /HPF Urine Squamous Epithelial Cells Few <5 /hpf Urine Bacteria Few H None Seen /hpf Urine Glucose Normal Normal mg/dL Blood Gas Specimen Type Arterial Blood Gas Sample Site Left radial Blood Gas Patient Temperature 37.0 Arterial Blood Date Drawn [id number] Arterial Blood pH 7.361 7.350-7.450 Arterial Blood Partial Pressure CO2 50.9 H 32.0-45.0 mmHg Arterial Blood Partial Pressure O2 355.5 *H 83.0-108.0 mmHg Arterial Blood HCO3 28.2 H 21.0-28.0 mmol/L Arterial Blood Oxygen Saturation 100.0 H 94.0-98.0 % Arterial Blood Base Excess 1.6 -2.0-3.0 mmol/L Arterial Blood Oxyhemoglobin 98.5 H 94.0-98.0 % Arterial Blood Carboxyhemoglobin 0.6 0.5-1.5 % Arterial Blood Methemoglobin 0.9 0.0-1.5 % Dao Test Yes Blood Gas Total Hemoglobin 17.90 H 12.0-16.0 g/dL Blood Gas Modality Mask - bipap FiO2 % 80.0 Blood Gas Critical Value Read Back Yesbi Blood Gas Notified Whom nic Deleon md Blood Gas Notified Time [id number] Blood Gas Notified By rolf Bundy rrt White Blood Count 15.9 H 4.4-10.8 10^3/uL Red Blood Count 7.33 H 4.0-5.20 10^6/uL Hemoglobin 17.8 H 12.2-16.2 g/dL Hematocrit 55.9 H 36.0-46.0 % Mean Corpuscular Volume 76.2 L 80.0-100.0 fL Mean Corpuscular Hemoglobin 24.2 L 28.0-32.0 pg Mean Corpuscular Hemoglobin Concent 31.8 L 32.0-36.0 g/dL Red Cell Distribution Width 21.0 H 11.8-14.3 % Platelet Count 773 *H 140-450 10^3/uL Mean Platelet Volume 7.6 6.9-10.8 fL Neutrophils (%) (Auto) 87.1 H 37.0-80.0 % Lymphocytes (%) (Auto) 8.8 L 10.0-50.0 % Monocytes (%) (Auto) 2.7 0.0-12.0 % Eosinophils (%) (Auto) 1.0 0.0-7.0 % Basophils (%) (Auto) 0.4 0.0-2.0 % Neutrophils # (Auto) 13.8 H 1.6-8.6 10 ^3/uL Lymphocytes # (Auto) 1.4 0.4-5.4 10 ^3/uL Monocytes # (Auto) 0.4 0-1.3 10 ^3/uL Eosinophils # (Auto) 0.2 0-0.8 10 ^3/uL Basophils # (Auto) 0.1 0-0.2 10 ^3/uL Nucleated Red Blood Cells 0.3 % Platelet Estimate Marked Large Platelets Few D-Dimer, Quantitative 0.41 0.0-0.49 mg/L FEU Sodium Level 139 136-145 mmol/L Potassium Level 4.3 3.5-5.1 mmol/L Chloride Level 100 98-107 mmol/L Carbon Dioxide Level 30 20-31 mmol/L Anion Gap 9 5-15 Blood Urea Nitrogen 18 9-23 mg/dL Creatinine 0.94 0.550-1.02 mg/dL Glomerular Filtration Rate Calc 65 >90 mL/min BUN/Creatinine Ratio 19.1 10.0-20.0 Serum Glucose 146 H 74-106 mg/dL Calcium Level 9.9 8.7-10.4 mg/dL B-Type Natriuretic Peptide 14.37 0-100 pg/mL Assessment/Plan Assessment/Plan COPD exacerbation/versus pneumonia reoccurrence and/or sepsis Admit to telemetry Steroids given Started on antibiotics D-dimer negative Chest z-icl-egancxioj congestion versus pneumonia Patient is on CPAP and is stable to be switched over to nasal cannula however patient prefers to remain on CPAP for now due to her anxiety. Acute on chronic hypoxic Respiratory failure Albuterol/ipratropium q.4 hours Supplemental oxygen p.r.n. to keep SpO2 greater than 92% CHF Echo done in July EF 55%-60% Troponins negative BNP negative Continue home meds Lasix given Hyperlipidemia Continue home meds Plan discussed with: Patient My Orders Orders - KEN CHENG Procedure Category Date Status Time Admit ADMIT 09/14/24 Transmitted 12:07 Allergies JENNY 09/14/24 In Process 12:07 Code Status CODE 09/14/24 Transmitted 12:07 Oxygen Per Hour RT 09/14/24 Transmitted 12:07 Acetaminophen Tablet PHA 09/14/24 Logged (Tylenol Tablet) 12:15 Hydrocodone-Acet PHA 09/14/24 Logged 5/325mg Tab ([place] 12:15 Docusate Sodium PHA 09/14/24 Logged Capsule (Colace 12:15 Fall Risk Precautions JENNY 09/14/[address] 12:07 Complete Blood Count LAB 09/15/24 Verified 04:00 Comprehensive LAB 09/15/24 Verified Metabolic Panel 04:00 Cardiac DIET 09/14/24 Transmitted Diet-2gna,Lofat,Lochol Lunch Condition: Serious JENNY 09/14/24 In Process 12:07 Bedside Commode JENNY 09/14/24 In Process 12:07 Nitroglycerin PHA 09/14/24 Logged Sublingual (Ntrostat 12:15 Morphine Sulfate PHA 09/14/24 Logged Injection 12:15 Stat Ekg For Chest JENNY 09/14/24 In Process Pain 12:07 Notify Of Changes JENNY 09/14/24 In Process From Base 12:07 Burner Shaft For JENNY 09/14/24 In Process 24 Hours 12:07 Emergency Dysrhythmia JENNY 09/14/24 In Process Protocol 12:07 Rhythm Strips Once JENNY 09/14/24 In Process Every Shift 12:07 Oxygen By Nasal RT 09/14/24 Transmitted Cannula 12:07 Hydrochlorothiazide PHA 09/15/24 Logged Tablet (Hydrochlorot 10:00 Losartan Tablet PHA 09/15/24 Logged (Cozaar Tablet) 10:00 Metoprolol Tartrate PHA 09/14/24 Logged Tablet (Lopressor Ta 22:00 Temazepam (Restoril) PHA 09/14/24 Logged 12:15 Atorvastatin (Lipitor) PHA 09/14/24 Logged 22:00 * Director Athletic CONS 09/14/24 Transmitted Consult Vancomycin Per PHA 09/14/24 Logged Pharmacy 12:15 Ceftriaxone 1gm/50ml PHA 09/15/24 Logged D5w (Rocephin) 09:00 Respiratory Culture CHARLIE 09/14/24 Logged W/ Gs 12:15 Enoxaparin Sodium PHA 09/15/24 Logged (Lovenox) 10:00 Albuterol Medneb PHA 09/14/24 Logged (Ventolin Medneb) 14:00 Ipratropium Medneb PHA 09/14/24 Logged (Atrovent Medneb) 14:00 Budesonide PHA 09/14/24 Logged (Inhalation) 22:00 Date of Service: Sep 14, 2024 Billing Provider: KEN CHENG Common Visit Codes: 07320-[id number] INP/OBS CARE (HIGH) KEN CHENG Sep 14, 2024 12:30
[2024-09-14] MEDS: IPRATROPIUM BROM 0.5 MG/2.5ML INH SOL NEB SCH (14:02)
[2024-09-14] MEDS: ALBUTEROL SULF 2.5 MG/0.5ML(0.5%) NEB SOLN NEB SCH (14:02)
[2024-09-14] MEDS: BUDESONIDE (INHALATION) 0.5 MG/2 ML NEB NEB SCH (18:41)
[2024-09-14] MEDS: VANCOMYCIN 1.25GM/250ML 250 ML IV SCH (19:43)
[2024-09-14] MEDS: ATORVASTATIN 20 MG TAB PO SCH (21:16)
[2024-09-14] MEDS: HYDROcodone-ACET 5/325MG TAB PO PRN (21:17)
[2024-09-14] MEDS: METOPROLOL TARTRATE 25 MG TAB PO SCH (21:18)
[2024-09-14] MEDS ORDERED: ATORVASTATIN 20 MG TAB PO SCH (22:00)
[2024-09-14] MEDS: TEMAZEPAM 15 MG CAP PO PRN (22:21)
[2024-09-15] VITALS (20 sets, daily range): BP systolic 117–170; BP diastolic 61–86; PULSE 18–117; RESP 17–20; TEMP 97.7–98.2; O2SAT 91–100
[2024-09-15 06:51] LABS: Hematocrit 51.7 % (36.0-46.0); Hemoglobin 16.5 g/dL (12.2-16.2); Mean Corpuscular Hemoglobin 24.1 pg (28.0-32.0); Mean Corpuscular Volume 75.4 fL (80.0-100.0); Platelet Count (auto) 737 10^3/uL (140-450); Red Blood Cells 6.86 10^6/uL (4.0-5.20); White Blood Cell 22.5 10^3/uL (4.4-10.8)
[2024-09-15 06:54] LABS: Red Cell Distribution Width 20.9 % (11.8-14.3)
[2024-09-15 06:56] LABS: Basophils % (manual) 0 (0.0-2.0); Blast Cells 0; Eosinophils % (manual) 0 (0-7); Metamyelocytes % 0; Myelocytes % 0; Promyelocytes % 0; Reactive Lymphocytes 0
[2024-09-15 07:49] LABS: Alanine Aminotransferase 15 U/L (7-40); Albumin 4.1 g/dL (3.2-4.8); Alkaline Phosphatase 83 U/L (46-116); Anion Gap 10 (5-15); Aspartate Aminotransferase 23 U/L (13-40); BUN/Creatinine Ratio 23.7 (10.0-20.0); Blood Urea Nitrogen 18 mg/dL (9-23); Calcium 10.1 mg/dL (8.7-10.4); Carbon Dioxide 25 mmol/L (20-31)
[2024-09-15 07:50] LABS: Bilirubin, Total 0.6 mg/dL (0.2-1.0); Chloride 104 mmol/L (98-107); Glucose 131 mg/dL (74-106); Potassium 3.8 mmol/L (3.5-5.1); Sodium 139 mmol/L (136-145)
[2024-09-15] MEDS: hydroCHLOROthiazide 25 MG TAB PO SCH (08:31)
[2024-09-15] MEDS: FUROSEMIDE 40 MG/4 ML VIAL IV SCH (08:31)
[2024-09-15] MEDS: ACETAMINOPHEN 325 MG TAB PO PRN (08:32)
[2024-09-15] MEDS: LOSARTAN POTASSIUM 50 MG TAB PO SCH (08:32)
[2024-09-15] MEDS: ENOXAPARIN SOD 40 MG/0.4 ML SYRINGE SC SCH (08:33)
[2024-09-15] MEDS: cefTRIAXone 1GM/50ML D5W 50 ML IV SCH (08:33)
[2024-09-15] MEDS: SODIUM CHLORIDE 0.9% 1,000 ML IV SCH (09:27)
[2024-09-15 10:04] LABS: Anisocytosis Slight; Band Neutrophils % (manual) 3; Hypochromia Slight; Large Platelets FEW; Lymphocytes % (manual) 5 (10.0-50.0); Monocytes % (manual) 1 (0-12); Platelet Estimate Increased
--- NOTE | 2024-09-15 10:56 | DVH ---
EXAM: CT CHEST WITHOUT CONTRAST; DATE: 09/15/2024 08:44 AM HISTORY: hypoxia COMPARISON: CT HI-RESOLUTION CHEST CT on DOS: 08/12/24, CT CHEST WITHOUT CONTRAST on DOS: 05/30/23 TECHNIQUE: Axial images were obtained and reformatted in coronal and sagittal planes. All CT scans a t [facility] are performed using dose modulation techniques as appropriate to a performed exam including the following: Automated exposure control was utilized; adjustment of the MA and/or KV according to patient size; and use of iterative reconstruction technique. CT Dose: CTDI volume is 14.26 mGy. Dose-length product is 581.99 mGy*cm FINDINGS: Lower neck: Unremarkable. Cardiomediastinal: The heart is normal in size. Coronary artery calcification noted. Aorta is valeri l in caliber with scattered calcified plaques noted.. Lungs: Right basilar streaky opacities likely subsegmental atelectasis. Bones and Soft Tissues: No acute abnormality. Upper Abdomen: No acute abnormality. The spleen appears enlarged. Gallbladder is surgically absent. Other: None. IMPRESSION: 1. Right basilar streaky opacities most likely subsegmental atelectasis. No lobar consolidation or pl eural effusion. 2. Moderate emphysema.
[2024-09-15] MEDS: methylPREDNISolone SOD SUCC 40 MG/ML VL IV ONE (14:46)
[2024-09-15 15:15] LABS: COVID19 ANTIGEN SOFIA FIA NEGATIVE (NEGATIVE); Rapid Influenza A Negative (Negative); Rapid Influenza B Negative (Negative)
--- NOTE | 2024-09-15 15:22 | DVHPNRES ---
Progress Note Date Seen: Sep 15, 2024 Resident Creating Document: ROBB TABARES RESIDENT Medical Necessity Reason Pt with a Central, PICC or Fol: No Subjective Review of Systems This is a 69 years old female with past medical history of COPD on home oxygen 2 L, dyslipidemia, hypertension presented to the ED with a chief complaint of shortness of breath for 2 days prior to this admission. the patient stated that for last 2 days she tried several breathing treatment on her own at home with no improvement of these symptoms and upon EMS arrival oxygen saturation was 90% on 2.5 L oxygen with diminished lung sounds, patient was given a breathing treatment but did not show signs of relief and was placed on CPAP, O2 sat improved to 100%. the patient is also complaining of chest pain which she described as burning and tightness without any dizziness, nausea, and vomiting. Patient was seen and examined on the bedside. she is alert oriented x3 and on 2 L oxygen with saturation 97%. complaint of chest pain, cough with productive yellowish sputum. no other active complaint this time. ROS: Constitutional: No: Fever, Chills, Sweats, Weakness,Other Eyes: No: Pain, Vision change, Conjunctivae inflammation, Eyelid inflammation, Other, Redness ENT: No: Ear pain, Ear discharge, Nose pain, Nose discharge, Nose congestion, Mouth pain, Mouth swelling, Throat pain, Throat swelling, Other Respiratory: Shortness of breath, improving Cough, sputum, Dry,Wheezing, No Hemoptysis, Pleuritic Pain, , Other Cardiovascular: Chest Pain, No Palpitations, Orthopnea, Paroxysmal Noc. Dyspnea, Edema, Lt Headedness, Other Gastrointestinal: No: Nausea, Vomiting, Abdominal Pain, Diarrhea, Constipation, Melena, Hematochezia, Other Musculoskeletal: No: other, neck pain, shoulder pain, arm pain, back pain, hand pain, leg pain, foot pain Neurological:; No: Weakness, Numbness, Incoordination, Change in speech, Confusion, Seizures Objective vital signs Vital Sign Date Time Temp Pulse Resp B/P (MAP) Pulse Ox O2 Delivery O2 Flow Rate FiO2 09/15/24 14:31 95 18 99 09/15/24 14:25 Nasal Cannula 3.0 09/15/24 14:25 32 09/15/24 14:25 97.7 134/86 (102) 97.7 Total Intake and Output 09/14/24 09/14/24 09/15/24 15:00 23:00 07:00 Intake Total 250 ml 700 ml Output Total 1 ml Balance 250 ml 699 ml medications Current Medications Medications Dose Ordered Sig/Kaila Route Start Time Stop Time Status Last Admin Dose Admin Acetaminophen 325 mg Q4HP PRN PO 09/14/24 12:15 09/15/24 08:32 325 MG Acetaminophen/ Hydrocodone Bitart 1 tab Q4HP PRN PO 09/14/24 12:15 09/15/24 05:14 1 TAB Docusate Sodium 100 mg BIDPRN PRN PO 09/14/24 12:15 Nitroglycerin 0.4 mg Q5MINP PRN SL 09/14/24 12:15 Morphine Sulfate 2 mg Q30M PRN IV 09/14/24 12:15 Atorvastatin Calcium 10 mg HS PO 09/14/24 22:00 UNV Hydrochlorothiazide 25 mg DAILY PO 09/15/24 10:00 09/15/24 08:31 25 MG Losartan Potassium 50 mg DAILY PO 09/15/24 10:00 09/15/24 08:32 50 MG Metoprolol Tartrate 25 mg BID PO 09/14/24 22:00 09/15/24 08:32 25 MG Temazepam 15 mg QHSP PRN PO 09/14/24 12:15 09/14/24 22:21 15 MG Atorvastatin Calcium 20 mg HS PO 09/14/24 22:00 09/14/24 21:16 20 MG Vancomycin HCl 0 ml @ 0 mls/hr UD IV 09/14/24 12:15 Ceftriaxone Sodium 50 ml @ 100 mls/hr DAILY@09 IV 09/15/24 09:00 09/15/24 08:33 100 MLS/HR Enoxaparin Sodium 40 mg DAILY SC 09/15/24 10:00 09/15/24 08:33 40 MG Albuterol 2.5 mg Q4HR NEB 09/14/24 14:00 09/15/24 14:21 2.5 MG Ipratropium [place] 0.5 mg Q4HR NEB 09/14/24 14:00 09/15/24 14:21 0.5 MG Furosemide 40 mg DAILY IV 09/15/24 10:00 09/15/24 08:31 40 MG Vancomycin HCl 250 ml @ 200 mls/hr Q12H IV 09/14/24 18:00 09/15/24 05:13 200 MLS/HR Sodium Chloride 1,000 ml @ 100 mls/hr Q10H IV 09/15/24 08:30 09/15/24 09:27 100 MLS/HR Methylprednisolone Sodium Succinate 40 mg DAILY IV 09/16/24 10:00 Examination Physical examination: General Appearance: Alert, Oriented X3, Cooperative, No acute distress HEENT: Atraumatic, PERRLA, EOMI, Mucous membrane moist/pink Respiratory: Bilateral decreased breath sound, wheezes mainly on the Lt side. Cardiovascular: Regular rate, Normal S1, Normal S2, No murmurs, no chest wall tenderness Abdominal: Normal bowel sounds, Soft, No tenderness, No hepatosplenomegaly, No masses Extremities: No clubbing, No cyanosis, No edema, Normal pulses, No tenderness/swelling Skin: No rashes, No breakdown, No significant lesion Neuro: Normal gait, Normal speech, Strength at 5/5 X4 ext, Normal tone, Sensation intact, grossly intact cranial nerves. Psych/Mental Status: Mental status NL, Mood NL laboratory and microbiology Laboratory Tests 09/15/24 06:26 Test 09/15/24 06:26 Range/Units Serum Glucose 131 H 74-106 mg/dL Microbiology Date/Time Source Procedure Growth Status 09/14/24 08:30 Blood Blood Culture - Preliminary NO GROWTH AFTER 24 HOURS OF INCUBATION. Resulted Labs and/or images reviewed: Labs reviewed by me, Image(s) reviewed by me Problem List/Assessment/Plan Problem List/Assessment/Plan Assessment and plan: # Sepsis likely due to pneumonia # Acute on chronic hypoxic respiratory failure likely due to pneumonia # Acute exacerbation of chronic COPD - CT chest showed Right basilar streaky opacities most likely subsegmental atelectasis. No lobar consolidation or pleural effusion and moderate emphysema. - IV normal saline at 100 mL/hours - nebulizers with the albuterol and ipratropium q.4 hours - IV methylprednisolone 40 mg daily - IV Lasix 40 mg daily - IV vancomycin as per pharmacy and IV ceftriaxone 1 g daily - Pending blood culture, respiratory culture # Chest pain rule out ACS # Hypertensive heart disease with possible chronic diastolic heart failure - Initial EKG and troponins were unremarkable - Echo on 08/10 demonstrated EF 55-60% - CXR showed pulmonary congestion and edema. - IV Lasix 40 mg daily. - Continue losartan 50 mg daily, hydrochlorothiazide 25 mg daily, metoprolol tartrate 25 mg b.i.d. - Atorvastatin 20 mg at HS # Possible chronic essential thrombocytosis # DVT prophylaxis - Lovenox 40 mg sc daily Goal of care discussed with the patient for 20 minutes full code Plan discussed with Dr. Boone Plan discussed with: Patient, Other (RN) My Orders My Orders Orders - ROBB TABARES Procedure Category Date Status Time Chest Without Contrast CT 09/15/24 Resulted 08:20 Sodium Chloride 0.9% PHA 09/15/24 In Process 08:30 Discontinue Tele JENNY 09/15/24 In Process 10:55 Transfer Orders XFER 09/15/24 Transmitted 10:55 Pt Request For Service PT 09/15/24 Logged 11:22 Mrsa Screen CHARLEI 09/15/24 Logged 11:46 Methylprednisolone PHA 09/16/24 In Process Sod Succ (Solu Medrol 10:00 Addendum Addendum Addendum I was physically present for the velasquez portions of the service provided to patient by THE RESIDENT. I have reviewed the documentation, discussed the case with resident and agree with the resident's documentation except as noted. Also the patient's clinical case was discussed with the patient's nurse. This medical document was created using an electronic medical record system with computerized dictation system. Although this document has been carefully reviewed, there might still be some phonetic and typographical errors. These areas are purely typographical due to imperfections of the software programs, and do not reflect any compromise in the patient's medical care. Late signature. Date of Service: Sep 15, 2024 Billing Provider: MARIELA BOONE MD Common Visit Codes: [id number] INP/OBS CARE(HIGH) Secondary Visit Codes: [id number] CARE PLAN 30 MINUTES (20 minutes) ROBB TABARES RESIDENT Sep 15, 2024 15:22 MARIELA BOONE MD September 17, 2024 04:33
[2024-09-15] MEDS: DOCUSATE SOD 100 MG CAP PO PRN (17:10)
[2024-09-15] MEDS: buPROPion HCL 75 MG TAB PO ONE (20:30)
[2024-09-16] VITALS (22 sets, daily range): BP systolic 126–165; BP diastolic 66–88; PULSE 70–112; RESP 17–20; TEMP 97.9–98.8; O2SAT 94–100
[2024-09-16 07:29] LABS: Chloride 105 mmol/L (98-107); Potassium 4.4 mmol/L (3.5-5.1); Sodium 142 mmol/L (136-145)
[2024-09-16 07:30] LABS: Anion Gap 7 (5-15); Carbon Dioxide 30 mmol/L (20-31)
[2024-09-16 07:31] LABS: Calcium 10.7 mg/dL (8.7-10.4)
[2024-09-16 07:35] LABS: Blood Urea Nitrogen 16 mg/dL (9-23); Glucose 110 mg/dL (74-106)
[2024-09-16 07:37] LABS: Basophils # (auto) 0.1 10 ^3/uL (0-0.2); Basophils % (auto) 0.3 % (0.0-2.0); Eosinophils # (auto) 0 10 ^3/uL (0-0.8); Hemoglobin 17.1 g/dL (12.2-16.2); Lymphocytes # (auto) 1.3 10 ^3/uL (0.4-5.4); Lymphocytes % (auto) 7.4 % (10.0-50.0); Mean Corpuscular Hemoglobin 23.8 pg (28.0-32.0); Mean Corpuscular Hgb Conc. 31.2 g/dL (32.0-36.0); Mean Corpuscular Volume 76.3 fL (80.0-100.0); Monocytes # (auto) 0.6 10 ^3/uL (0-1.3); Neutrophils # (auto) 16.2 10 ^3/uL (1.6-8.6); Neutrophils % (auto) 89.3 % (37.0-80.0); Nucleated Red Blood Cells % 0.1 %; Red Cell Distribution Width 20.5 % (11.8-14.3); White Blood Cell 18.1 10^3/uL (4.4-10.8)
[2024-09-16 07:40] LABS: Platelet Count (auto) 769 10^3/uL (140-450)
--- NOTE | 2024-09-16 08:47 | ECG ---
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
[2024-09-16] MEDS: methylPREDNISolone SOD SUCC 40 MG/ML VL IV SCH (09:22)
[2024-09-16] MEDS: ONDANSETRON HCL 4 MG/2 ML VIAL IV PRN (10:39)
--- NOTE | 2024-09-16 12:32 | ECG ---
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
--- NOTE | 2024-09-16 18:12 | DVHPNRES ---
Progress Note Date Seen: September 16, 2024 Resident Creating Document: ROBB TABARES RESIDENT Medical Necessity Reason Pt with a Central, PICC or Fol: No Subjective Review of Systems Patient was seen and examined on the bedside. she is alert oriented x3 and on 2 L oxygen with saturation 97%. Complaint Of cough with productive sputum and lack of sleep last night. No other active complaint Objective vital signs Vital Sign Date Time Temp Pulse Resp B/P (MAP) Pulse Ox O2 Delivery O2 Flow Rate FiO2 09/16/24 14:32 86 20 09/16/24 14:23 99 09/16/24 13:00 98.0 130/68 (88) 98.0 09/16/24 08:00 Nasal Cannula* 2 28 Total Intake and Output 09/15/24 09/15/24 09/16/24 15:00 23:00 07:00 Intake Total 0 ml Balance 0 ml medications Current Medications Medications Dose Ordered Sig/Kaila Route Start Time Stop Time Status Last Admin Dose Admin Acetaminophen 325 mg Q4HP PRN PO 09/14/24 12:15 09/16/24 05:54 325 MG Acetaminophen/ Hydrocodone Bitart 1 tab Q4HP PRN PO 09/14/24 12:15 09/15/24 21:37 1 TAB Docusate Sodium 100 mg BIDPRN PRN PO 09/14/24 12:15 09/15/24 17:10 100 MG Nitroglycerin 0.4 mg Q5MINP PRN SL 09/14/24 12:15 Morphine Sulfate 2 mg Q30M PRN IV 09/14/24 12:15 Atorvastatin Calcium 10 mg HS PO 09/14/24 22:00 UNV Hydrochlorothiazide 25 mg DAILY PO 09/15/24 10:00 09/16/24 09:21 25 MG Losartan Potassium 50 mg DAILY PO 09/15/24 10:00 09/16/24 08:08 50 MG Metoprolol Tartrate 25 mg BID PO 09/14/24 22:00 09/16/24 08:08 25 MG Temazepam 15 mg QHSP PRN PO 09/14/24 12:15 09/15/24 22:34 15 MG Atorvastatin Calcium 20 mg HS PO 09/14/24 22:00 09/15/24 21:35 20 MG Vancomycin HCl 0 ml @ 0 mls/hr UD IV 09/14/24 12:15 Ceftriaxone Sodium 50 ml @ 100 mls/hr DAILY@09 IV 09/15/24 09:00 09/16/24 09:18 100 MLS/HR Enoxaparin Sodium 40 mg DAILY SC 09/15/24 10:00 09/15/24 08:33 40 MG Albuterol 2.5 mg Q4HR NEB 09/14/24 14:00 09/16/24 14:22 2.5 MG Ipratropium [place] 0.5 mg Q4HR NEB 09/14/24 14:00 09/16/24 14:22 0.5 MG Furosemide 40 mg DAILY IV 09/15/24 10:00 09/16/24 09:22 40 MG Vancomycin HCl 250 ml @ 200 mls/hr Q12H IV 09/14/24 18:00 09/16/24 18:02 200 MLS/HR Methylprednisolone Sodium Succinate 40 mg DAILY IV 09/16/24 10:00 09/16/24 09:22 40 MG Ondansetron HCl 4 mg Q8HPRN PRN IV 09/16/24 09:30 09/16/24 10:39 4 MG Examination Physical examination: General Appearance: Alert, Oriented X3, Cooperative, No acute distress HEENT: Atraumatic, PERRLA, EOMI, Mucous membrane moist/pink Respiratory: Bilateral decreased breath sound, wheezes mainly on the Lt side. Cardiovascular: Regular rate, Normal S1, Normal S2, No murmurs, no chest wall tenderness Abdominal: Normal bowel sounds, Soft, No tenderness, No hepatosplenomegaly, No masses Extremities: No clubbing, No cyanosis, No edema, Normal pulses, No tenderness/swelling Skin: No rashes, No breakdown, No significant lesion Neuro: Normal gait, Normal speech, Strength at 5/5 X4 ext, Normal tone, Sensation intact, grossly intact cranial nerves. Psych/Mental Status: Mental status NL, Mood NL laboratory and microbiology Laboratory Tests 09/16/24 06:16 Test 09/16/24 06:16 Range/Units Serum Glucose 110 H 74-106 mg/dL Microbiology Date/Time Source Procedure Growth Status 09/15/24 14:02 Nose MRSA Screen - Final Complete 09/14/24 08:30 Blood Blood Culture - Preliminary NO GROWTH AFTER 48 HOURS OF INCUBATION. Resulted Labs and/or images reviewed: Labs reviewed by me, Image(s) reviewed by me Problem List/Assessment/Plan Problem List/Assessment/Plan Assessment and plan: # Sepsis likely due to pneumonia # Acute on chronic hypoxic respiratory failure likely due to pneumonia # Acute exacerbation of chronic COPD - CT chest showed Right basilar streaky opacities most likely subsegmental atelectasis. No lobar consolidation or pleural effusion and moderate emphysema. - nebulizers with the albuterol and ipratropium q.4 hours - IV methylprednisolone 40 mg daily - IV Lasix 40 mg daily - IV vancomycin as per pharmacy and IV ceftriaxone 1 g daily - Blood culture revealed no growth in 24 hours of incubation period and pending respiratory culture - COVID-19, flu and MRSA are negative # Chest pain rule out ACS # Hypertensive heart disease with possible chronic diastolic heart failure - Initial EKG and troponins were unremarkable - Echo on 08/10 demonstrated EF 55-60% - CXR showed pulmonary congestion and edema. - IV Lasix 40 mg daily. - Continue losartan 50 mg daily, hydrochlorothiazide 25 mg daily, metoprolol tartrate 25 mg b.i.d. - Atorvastatin 20 mg at HS # Possible myeloproliferative disorder. - Consulted hemato oncology # DVT prophylaxis - Lovenox 40 mg sc daily Plan discussed with Dr. Boone Plan discussed with: Patient, Other (RN) My Orders My Orders Orders - ROBB TABARES RESIDENT Procedure Category Date Status Time * Hematology/Oncology CONS 09/16/24 Transmitted Consult 07:57 Ondansetron Hcl PHA 09/16/24 In Process (Zofran) 09:30 Addendum Addendum Addendum I was physically present for the velasquez portions of the service provided to patient by THE RESIDENT. I have reviewed the documentation, discussed the case with resident and agree with the resident's documentation except as noted. Also the patient's clinical case was discussed with the patient's nurse. This medical document was created using an electronic medical record system with computerized dictation system. Although this document has been carefully reviewed, there might still be some phonetic and typographical errors. These areas are purely typographical due to imperfections of the software programs, and do not reflect any compromise in the patient's medical care. Late signature. Date of Service: September 16, 2024 Billing Provider: MARIELA BOONE MD Common Visit Codes: [id number] INP/OBS CARE(HIGH) ROBB TABARES RESIDENT September 16, 2024 18:12 MARIELA BOONE MD September 17, 2024 04:35
[2024-09-17] VITALS (12 sets, daily range): BP systolic 125–158; BP diastolic 65–83; PULSE 76–107; RESP 16–20; TEMP 97.4–98; O2SAT 93–100
[2024-09-17 07:52] LABS: Basophils # (auto) 0.1 10 ^3/uL (0-0.2); Hematocrit 53.8 % (36.0-46.0); Monocytes # (auto) 0.7 10 ^3/uL (0-1.3); Neutrophils % (auto) 84.1 % (37.0-80.0)
[2024-09-17 07:56] LABS: Basophils % (auto) 0.7 % (0.0-2.0); Eosinophils # (auto) 0.1 10 ^3/uL (0-0.8); Eosinophils % (auto) 0.5 % (0.0-7.0); Hemoglobin 16.9 g/dL (12.2-16.2); Lymphocytes # (auto) 1.8 10 ^3/uL (0.4-5.4); Lymphocytes % (auto) 10.6 % (10.0-50.0); Mean Corpuscular Hemoglobin 24.1 pg (28.0-32.0); Mean Corpuscular Hgb Conc. 31.4 g/dL (32.0-36.0); Monocytes % (auto) 4.1 % (0.0-12.0); Neutrophils # (auto) 14.3 10 ^3/uL (1.6-8.6); Nucleated Red Blood Cells % 0.8 %; Platelet Count (auto) 659 10^3/uL (140-450); Red Blood Cells 6.99 10^6/uL (4.0-5.20); White Blood Cell 16.9 10^3/uL (4.4-10.8)
[2024-09-17 08:00] LABS: Red Cell Distribution Width 21.1 % (11.8-14.3)
[2024-09-17 08:02] LABS: Anion Gap 7 (5-15); Chloride 100 mmol/L (98-107); Potassium 4.1 mmol/L (3.5-5.1); Sodium 139 mmol/L (136-145)
[2024-09-17 08:08] LABS: BUN/Creatinine Ratio 16.7 (10.0-20.0); Blood Urea Nitrogen 14 mg/dL (9-23)
[2024-09-17 08:11] LABS: Calcium 10.4 mg/dL (8.7-10.4); Carbon Dioxide 32 mmol/L (20-31); Glucose 111 mg/dL (74-106)
[2024-09-17] MEDS ORDERED: guaiFENesin 200 MG/10 ML UD PO PRN (10:45)
[2024-09-17] MEDS: AZITHROMYCIN 500MG/ 250ML 250 ML IV ONE (12:14)
[2024-09-17] MEDS ORDERED: METH4PAK PO (14:57)
[2024-09-17] MEDS ORDERED: AUG875T PO (14:57)
[2024-09-17] MEDS ORDERED: AZIT500T66 PO (14:57)
--- NOTE | 2024-09-17 19:29 | DVHDSRES ---
Discharge Summary Date of Admission Resident Creating Document: ROBB TABARES RESIDENT Sep 14, 2024 at 12:07 Date of Discharge: September 17, 2024 Admitting Diagnosis Shortness of breath so was diagnosed with acute on chronic hypoxic respiratory failure likely due to pneumonia Wounds: No open wound was present. Labs/Diagnostic Data: Laboratory Results Test 09/17/24 07:00 09/15/24 19:49 09/15/24 17:24 09/15/24 12:00 White Blood Count 16.9 10^3/uL (4.4-10.8) Red Blood Count 6.99 10^6/uL (4.0-5.20) Hemoglobin 16.9 g/dL (12.2-16.2) Hematocrit 53.8 % (36.0-46.0) Mean Corpuscular Volume 77.0 fL (80.0-100.0) Mean Corpuscular Hemoglobin 24.1 pg (28.0-32.0) Mean Corpuscular Hemoglobin Concent 31.4 g/dL (32.0-36.0) Red Cell Distribution Width 21.1 % (11.8-14.3) Platelet Count 659 10^3/uL (140-450) Mean Platelet Volume 7.6 fL (6.9-10.8) Neutrophils (%) (Auto) 84.1 % (37.0-80.0) Lymphocytes (%) (Auto) 10.6 % (10.0-50.0) Monocytes (%) (Auto) 4.1 % (0.0-12.0) Eosinophils (%) (Auto) 0.5 % (0.0-7.0) Basophils (%) (Auto) 0.7 % (0.0-2.0) Neutrophils # (Auto) 14.3 10 ^3/uL (1.6-8.6) Lymphocytes # (Auto) 1.8 10 ^3/uL (0.4-5.4) Monocytes # (Auto) 0.7 10 ^3/uL (0-1.3) Eosinophils # (Auto) 0.1 10 ^3/uL (0-0.8) Basophils # (Auto) 0.1 10 ^3/uL (0-0.2) Nucleated Red Blood Cells 0.8 % Sodium Level 139 mmol/L (136-145) Potassium Level 4.1 mmol/L (3.5-5.1) Chloride Level 100 mmol/L (98-107) Carbon Dioxide Level 32 mmol/L (20-31) Anion Gap 7 (5-15) Blood Urea Nitrogen 14 mg/dL (9-23) Creatinine 0.84 mg/dL (0.550-1.02) Glomerular Filtration Rate Calc 75 mL/min (>90) BUN/Creatinine Ratio 16.7 (10.0-20.0) Serum Glucose 111 mg/dL (74-106) Calcium Level 10.4 mg/dL (8.7-10.4) Troponin I High Sensitivity 15 ng/L (</=34) Vancomycin Level Trough 16.5 ug/mL (5-10) Influenza Type A Antigen Negative (Negative) Influenza Type B Antigen Negative (Negative) SARS-CoV-2 Antigen (Rapid) Negative (NEGATIVE) Test 09/15/24 06:26 09/14/24 10:47 09/14/24 08:30 09/14/24 08:16 Differential Total Cells Counted 100.0 (100) Neutrophils % (Manual) 91 (37.0-80.0) Band Neutrophils % (Manual) 3 Lymphocytes % (Manual) 5 (10.0-50.0) Monocytes % (Manual) 1 (0-12) Eosinophils % (Manual) 0 (0-7) Basophils % (Manual) 0 (0.0-2.0) Metamyelocytes % (manual) 0 Myelocytes % (Manual) 0 Promyelocytes % (Manual) 0 Blast Cells % (Manual) 0 Reactive Lymphocytes 0 Platelet Estimate Increased Large Platelets Few Hypochromasia (manual) Slight Anisocytosis (manual) Slight Microcytosis Slight Total Bilirubin 0.6 mg/dL (0.2-1.0) Aspartate Amino Transferase (AST) 23 U/L (13-40) Alanine Aminotransferase (ALT) 15 U/L (7-40) Alkaline Phosphatase 83 U/L (46-116) Total Protein 7.0 g/dL (5.7-8.2) Albumin 4.1 g/dL (3.2-4.8) Lactic Acid Level 1.9 mmol/L (0.4-2.0) Urine Color Light-yellow (Yellow) Urine Clarity Clear (Clear) Urine pH 5.0 (5.0-9.0) Urine Specific [place] 1.017 (1.001-1.035) Urine Protein 1+ (Negative) Urine Ketones Negative (Negative) Urine Blood Negative /uL (Negative) Urine Nitrite Negative (Negative) Urine Bilirubin Negative (Negative) Urine Urobilinogen Normal mg/dL (Negative) Urine Leukocyte Esterase Negative /uL (Negative) Urine RBC 1 /hpf (0 - 4) Urine Microscopic WBC 2 /HPF (0-5) Urine Squamous Epithelial Cells Few /hpf (<5) Urine Bacteria Few /hpf (None Seen) Urine Glucose Normal mg/dL (Normal) Blood Gas Specimen Type Arterial Blood Gas Sample Site Left radial Blood Gas Patient Temperature 37.0 Arterial Blood Date Drawn [id number] Arterial Blood pH 7.361 (7.350-7.450) Arterial Blood Partial Pressure CO2 50.9 mmHg (32.0-45.0) Arterial Blood Partial Pressure O2 355.5 mmHg (83.0-108.0) Arterial Blood HCO3 28.2 mmol/L (21.0-28.0) Arterial Blood Oxygen Saturation 100.0 % (94.0-98.0) Arterial Blood Base Excess 1.6 mmol/L (-2.0-3.0) Arterial Blood Oxyhemoglobin 98.5 % (94.0-98.0) Arterial Blood Carboxyhemoglobin 0.6 % (0.5-1.5) Arterial Blood Methemoglobin 0.9 % (0.0-1.5) Dao Test Yes Blood Gas Total Hemoglobin 17.90 g/dL (12.0-16.0) Blood Gas Modality Mask - bipap FiO2 % 80.0 Blood Gas Critical Value Read Back Yesbi Blood Gas Notified Whom nic Deleon md Blood Gas Notified Time [id number] Blood Gas Notified By rolf Bundy product safety coordinator Test 09/14/24 07:29 D-Dimer, Quantitative 0.41 mg/L FEU (0.0-0.49) B-Type Natriuretic Peptide 14.37 pg/mL (0-100) Other Laboratory Tests 09/17/24 07:00 Brief Hx & Hospital Course: This is a 69 years old female with past medical history of COPD on home oxygen 2 L/min, dyslipidemia, hypertension presented to the ED with a chief complaint of shortness of breath for 2 days prior to this admission. the patient stated that for last 2 days she tried several breathing treatment on her own at home with no improvement of these symptoms and upon EMS arrival oxygen saturation was 90% on 2.5 L oxygen with diminished lung sounds, patient was given a breathing treatment but did not show signs of relief and was placed on CPAP, O2 sat improved to 100%. the patient is also complaining of chest pain which she described as burning and tightness without any dizziness, nausea, and vomiting. Hospital course: CT chest showed Right basilar streaky opacities most likely subsegmental atelectasis. No lobar consolidation or pleural effusion and moderate emphysema. Initial EKG and troponins were unremarkable, Echo on 08/10 demonstrated EF 55-60% and CXR showed pulmonary congestion and edema. Patient was treated with nebulizers with the albuterol and ipratropium q.4 hours, IV methylprednisolone 40 mg daily, IV Lasix 40 mg daily, IV vancomycin as per pharmacy and IV ceftriaxone 1 g daily and also resumed her home medications. CBC revealed elevated RBC, platelet count and for possible myeloproliferative disorder recommended outpatient follow up with hemato oncology. Discharge plan was discussed with the patient and all questions were answered. patient is being discharged to home with Augmentin 875 mg b.i.d. for 7 days, azithromycin 500 mg daily for 3 days, Medrol Dosepak, and advised to continue home medications. patient was also advised to follow up with PCP in 1 week and with hemato oncology in 2 weeks. Physical examination on discharge: General Appearance: Alert, Oriented X3, Cooperative, No acute distress HEENT: Atraumatic, PERRLA, EOMI, Mucous membrane moist/pink Respiratory: Normal vesicular breath sounds bilaterally Cardiovascular: Regular rate, Normal S1, Normal S2, No murmurs, no chest wall tenderness Abdominal: Normal bowel sounds, Soft, No tenderness, No hepatosplenomegaly, No masses Extremities: No clubbing, No cyanosis, No edema, Normal pulses, No tenderness/swelling Skin: No rashes, No breakdown, No significant lesion Neuro: Normal gait, Normal speech, Strength at 5/5 X4 ext, Normal tone, Sensation intact, grossly intact cranial nerves. Psych/Mental Status: Mental status NL, Mood NL Discussed with Dr. Boone Consults/Reason for consult Hemato-oncology was consulted for thrombocytosis Operations or Procedures EXAM: CT CHEST WITHOUT CONTRAST; DATE: 09/15/2024 08:44 AM HISTORY: hypoxia COMPARISON: CT HI-RESOLUTION CHEST CT on DOS: 08/12/24, CT CHEST WITHOUT CONTRAST on DOS: 05/30/23 TECHNIQUE: Axial images were obtained and reformatted in coronal and sagittal planes. All CT scans at this medical facility are performed using dose modulation techniques as appropriate to a performed exam including the following: Automated exposure control was utilized; adjustment of the MA and/or KV according to patient size; and use of iterative reconstruction technique. CT Dose: CTDI volume is 14.26 mGy. Dose-length product is 581.99 mGy*cm FINDINGS: Lower neck: Unremarkable. Cardiomediastinal: The heart is normal in size. Coronary artery calcification noted. Aorta is normal in caliber with scattered calcified plaques noted.. Lungs: Right basilar streaky opacities likely subsegmental atelectasis. Bones and Soft Tissues: No acute abnormality. Upper Abdomen: No acute abnormality. The spleen appears enlarged. Gallbladder is surgically absent. Other: None. IMPRESSION: 1. Right basilar streaky opacities most likely subsegmental atelectasis. No lobar consolidation or pleural effusion. 2. Moderate emphysema. Condition at Discharge: Stable Final Diagnosis/Problems List # Sepsis likely due to pneumonia # Acute on chronic hypoxic respiratory failure likely due to pneumonia # Acute exacerbation of chronic COPD # Chest pain ruled out ACS # Hypertensive heart disease with possible chronic diastolic heart failure # Possible myeloproliferative disorder, needs outpatient follow up with hemato-oncology Discharge Disposition: Home Discharge Instruct/Medications Diet: Cardiac 2g Na,low cholest Activity: No Restrictions, As Tolerated Follow Up/Referral: Follow up with PCP in 1 week. Follow up with hemato-oncology in 1 to 2 weeks. Medications: As per EMR Discharge Statement: "Patient was advised to return to the ER or call 911 if any headaches, dizziness, shortness of breath, chest pain, abdominal pain, bleeding, fevers, or worsening of medical condition. Patient was counseled about treatment plan, medications, possible side effects, patientverbalized understanding. All questions were answered to the best of my ability. This discharge took greater then 30 minutes in planning, reviewing documentation, counseling the patient, and discussing with other team members." ASSESSMENT ASSESSMENT Assessment # Sepsis likely due to pneumonia # Acute on chronic hypoxic respiratory failure likely due to pneumonia # Acute exacerbation of chronic COPD # Chest pain ruled out ACS # Hypertensive heart disease with possible chronic diastolic heart failure # Possible myeloproliferative disorder, needs outpatient follow up with hemato- oncology Addendum Addendum Addendum I was physically present for the velasquez portions of the service provided to patient by THE RESIDENT. I have reviewed the documentation, discussed the case with resident and agree with the resident's documentation except as noted. Also the patient's clinical case was discussed with the patient's nurse. This medical document was created using an electronic medical record system with computerized dictation system. Although this document has been carefully reviewed, there might still be some phonetic and typographical errors. These areas are purely typographical due to imperfections of the software programs, and do not reflect any compromise in the patient's medical care. Late signature. Date of Service: September 17, 2024 Billing Provider: MARIELA BOONE MD Common Visit Codes: 76339-JCF/OBS DISCH DAY >30min ROBB TABARES RESIDENT September 17, 2024 19:29 MARIELA BOONE MD September 18, 2024 05:01
[2024-09-17] MEDS ORDERED: MELATONIN 5 MG TAB PO SCH (22:00)
[2024-09-18] MEDS ORDERED: AZITHROMYCIN 500MG/ 250ML 250 ML IV SCH (10:00)
== END 2024-09-17 17:10 | disposition home or self-care (01) | DRG 871 ==
LOC: EDBD 07:12 → ER 07:12 → OVERFLOW 12:07 → TELE-CENTR 18:54 → CENTRAL 09-15 20:54
PROVIDERS: ADMIT Internal Medicine; ATTEND Emergency Medicine
PROC: 5A09357 Assistance with Respiratory Ventilation, Less than 24 Consecutive Hours, Continuous Positive Airway Pressure (ICD-10-PCS; principal; 2024-09-14)
PROC: 5A09357 Assistance with Respiratory Ventilation, Less than 24 Consecutive Hours, Continuous Positive Airway Pressure (ICD-10-PCS; 2024-09-15)
PROC: 5A09357 Assistance with Respiratory Ventilation, Less than 24 Consecutive Hours, Continuous Positive Airway Pressure (ICD-10-PCS; 2024-09-16)
DX: A41.9 Sepsis, unspecified organism (principal); J18.9 Pneumonia, unspecified organism; J96.21 Acute and chronic respiratory failure with hypoxia; J44.1 Chronic obstructive pulmonary disease with (acute) exacerbation; D47.1 Chronic myeloproliferative disease; J44.0 Chronic obstructive pulmonary disease with (acute) lower respiratory infection; I50.32 Chronic diastolic (congestive) heart failure; I11.0 Hypertensive heart disease with heart failure; F41.9 Anxiety disorder, unspecified; Z20.822 Contact with and (suspected) exposure to COVID-19; E78.5 Hyperlipidemia, unspecified; Z90.49 Acquired absence of other specified parts of digestive tract; Z87.01 Personal history of pneumonia (recurrent); Z88.5 Allergy status to narcotic agent
CPT/HCPCS: 36415; 71045; 71250; 80048; 80053; 80202; 81001; 83605; 83880; 84484; 85007; 85025; 85027; 85379; 87040; 87081; 87426; 87804; 93005; 94640; 94660; 96374; 96375; 97163; 99291; G0378; J2405

== ENCOUNTER → 2024-10-04 | Outpatient (CLI) | payer OTHER ==
[~2024-10-04] MED LIST changes: -ATOR10TA52 PO; +AUG875T PO; -AZIT-43 PO; +AZIT500T66 PO; -HYDR-4798; -LEVAAER IN; +METH4PAK PO; -PRED20TA2 PO
[2024-10-04 13:35] LABS: Basophils # (auto) 0.1 10 ^3/uL (0-0.2); Eosinophils # (auto) 0.2 10 ^3/uL (0-0.8); Eosinophils % (auto) 2.1 % (0.0-7.0); Lymphocytes # (auto) 1.7 10 ^3/uL (0.4-5.4); Monocytes # (auto) 0.5 10 ^3/uL (0-1.3)
[2024-10-04 13:36] LABS: Basophils % (auto) 1.1 % (0.0-2.0); Hemoglobin 18.2 g/dL (12.2-16.2); Lymphocytes % (auto) 14.8 % (10.0-50.0); Mean Corpuscular Hemoglobin 25.1 pg (28.0-32.0); Mean Corpuscular Hgb Conc. 32.4 g/dL (32.0-36.0); Mean Corpuscular Volume 77.5 fL (80.0-100.0); Neutrophils # (auto) 8.9 10 ^3/uL (1.6-8.6); Nucleated Red Blood Cells % 1.4 %; Platelet Count (auto) 569 10^3/uL (140-450); Red Blood Cells 7.23 10^6/uL (4.0-5.20); White Blood Cell 11.4 10^3/uL (4.4-10.8)
[2024-10-04 13:47] LABS: Red Cell Distribution Width 20.8 % (11.8-14.3)
[2024-10-04 13:49] LABS: Alanine Aminotransferase 23 U/L (7-40); Albumin 4.3 g/dL (3.2-4.8); Alkaline Phosphatase 81 U/L (46-116); Anion Gap 5 (5-15); Aspartate Aminotransferase 19 U/L (13-40); BUN/Creatinine Ratio 12.6 (10.0-20.0); Blood Urea Nitrogen 11 mg/dL (9-23); Calcium 10.2 mg/dL (8.7-10.4); Carbon Dioxide 31 mmol/L (20-31); Chloride 105 mmol/L (98-107); Glucose 101 mg/dL (74-106); Potassium 3.9 mmol/L (3.5-5.1); Sodium 141 mmol/L (136-145); Total Protein 7.1 g/dL (5.7-8.2)
== END | disposition home or self-care (01) ==
LOC: LAB 13:17
PROVIDERS: ATTEND Internal Medicine
DX: I13.0 Hypertensive heart and chronic kidney disease with heart failure and stage 1 through stage 4 chronic kidney disease, or unspecified chronic kidney disease (principal); N18.9 Chronic kidney disease, unspecified; I50.9 Heart failure, unspecified; J44.9 Chronic obstructive pulmonary disease, unspecified; J96.10 Chronic respiratory failure, unspecified whether with hypoxia or hypercapnia
CPT/HCPCS: 36415; 80053; 83880; 85025

== ENCOUNTER 2024-12-21 09:16 | Outpatient (CLI) | payer OTHER ==
[2024-12-21 10:23] LABS: Triglycerides 116 mg/dL (< 150)
[2024-12-21 10:25] LABS: Cholesterol 132 mg/dL (< 200); HDL Cholesterol 41 mg/dL (40-59)
== END 2024-12-21 17:00 | disposition home or self-care (01) ==
LOC: LAB 09:16
PROVIDERS: ATTEND Internal Medicine
DX: I11.0 Hypertensive heart disease with heart failure (principal); I50.9 Heart failure, unspecified; E78.5 Hyperlipidemia, unspecified; E66.01 Morbid (severe) obesity due to excess calories; R73.03 Prediabetes
CPT/HCPCS: 36415; 80061; 82306; 82607; 83036; 84207; 84443

== ENCOUNTER 2025-02-16 09:36 | Inpatient (IN) | payer OTHER ==
[~2025-02-16] VITALS: Ht 170.2 cm; Wt 79.4 kg
--- NOTE | 2025-02-16 10:35 | DVH ---
EXAM: XY CHEST PORTABLE Indication: cp Technique: Single frontal view of the chest was obtained Comparison: CT CHEST WITHOUT CONTRAST on DOS: 09/15/24, XY CHEST PORTABLE on DOS: 09/14/24, CT HI-RESOL UTION CHEST CT on DOS: 08/12/24, XY CHEST PORTABLE on DOS: 08/11/24, CT CHEST WITHOUT CONTRAST on DOS: 09/16/23 FINDINGS: Lines and Tubes: None Lungs: No focal consolidation. Pulmonary vascular congestion. Pleura: No effusion. No pneumothorax. Cardiomediastinal contours: Unremarkable. Atherosclerotic vascular calcifications of the thoracic ao rta are noted. Bones: No acute osseous abnormality. IMPRESSION: Prominence of the right hilar region with pulmonary vascular congestion and pulmonary edema.
--- NOTE | 2025-02-16 10:36 | ED.PDOC ---
SOB-HPI HPI Comments Js: cp, flu like, sob, weak, diarrhea. HPI: Poor Historian. This is a 69 year old female presenting to the ED with chief complaint of SOB. Patient reports that she has been experiencing SOB with as sociated runny nose, nasal congestion, headache, generalized chest pain with inspiration, and diarrhea for the past 5 days. Patient relays that she went to urgent care today and was advised to come into the ED due to her HR being too high. Patient notes she is normally on 2L of O2 at home, but she needed to bump it up to 2.5L due to SOB. Patient denies any fever, chills, cough, abdominal pain, or N/V. Past Medical History: COPD, HTN, HLD, CHF, VA Past Surgical History: Appendectomy, Tubal Ligation, Hysterectomy REVIEW OF SYSTEMS: CONSTITUTIONAL: Denies acute: fever, diaphoresis, chills, HEAD: Denies acute: photophobia Eyes: Denies acute: Double vision, vision loss, eye pain, eye discharge. EARS: Denies acute: tinnitus, hearing loss, ear discharge, ear pain, THROAT: Denies acute: sore throat, swelling, difficulty swallowing , pain with swallowing, change in voice. NECK: Denies acute: neck pain, neck swelling, stiff neck. HEART: Denies acute : palpitations, LUNGS: Denies acute: , wheezing, cough, hemoptysis ABDOMEN: Denies acute: abdominal pain, Nausea, Vomiting, melena , hematemesis, hematochezia SKIN: Denies acute: rash, redness, lesions, itchiness. EXTREMITIES: Denies acute: calf pain, numbness, tingling, weakness, denies pain in extremity. Denies acute: Low back pain. Neuro: Denies acute: focal neurological deficit, motor or sensory focal neurological de ficit, tremors, seizure like activity, confusion, dizziness, change in mental status, loss of bowel or bladder function, cauda equina like symptoms. : Denies acute: dysuria, hematuria, flank pain, increase in urinary frequency. PSYCH: Denies acute: hallucination, suicidal ideation, homicidal ideation. FEMALE: Denies acute: abnormal vaginal bleeding, foul odor, unusual discharge. PHYSICAL EXAM: General: -----moderate---acute distress, awake and alert. Head: normocephalic, atraumatic. Neck: supple, trachea is midline, no swelling. Throat: Normal phonation. Eyes:, no erythema, no purulent discharge, no proptosis, no icterus. Heart: regular tachycardic, no significant murmur appreciated. Lungs: no apparent respiratory distress, Able to speak in full sentences. No wheezing, no rhonchi, no crackles. No stridors Clear to auscultation bilaterally. Abdomen: non tender to palpation, non distended, soft, no guarding, no rebound, + bowel sounds. Obese Neuro: Awake, Alert, oriented to name, self, situation, follows commands GCS=15. Speech is normal. Skin: no petechia, no purpura, no cyanosis, non-pale, not jaundice. Lower extremities: --no - Pitting edema no deformity, no focal swelling, no calf TTP. Makes eye contact. moves all four extremities. Face: no apparent facial droop. Ambulating in the ED independently. ED COURSE: DISCLAIMER: This medical document was created using an electronic medical record system with voice recognition software and computerized dictation system. Although this document has been carefully reviewed, there might still be some phonetic and typographical errors. Occasional wrong-word or "sound-alike" substitutions may have occurred due to the inherent limitations of voice recognition software. These areas are purely typographical due to imperfections of the software [employer] and do not reflect any compromise in the patient's medical care. Please read the chart carefully and recognize, using context, where these substitutions have occurred. Chief Complaint: Shortness of Breath Time Seen by MD: 09:46 Primary Care Provider: unknown Reviewed notes: Medications, Allergies Information Source: Patient, Relative Mode of Arrival: Ambulatory Past Medical History PAST MEDICAL HISTORY: CHF, COPD, High Lipids, HTN, VA Surgical History: Appendectomy, Tubal Ligation RN UNIT MANAGER History: Denies all RN UNIT MANAGER Hx Family History Family History: Unknown Social History Smoker: Non-Smoker Alcohol: Denies ETOH Use Drugs: Denies Drug Use Lives In: Home Was a procedure done? Was a procedure done?: No Differential Dx Differential Diagnosis: Other (DDx include ACS, unstable angina, anxiety, PE, pneumothroax, neoplasm, cardiac ischemia, COPD, asthma, CHF, pleural effusion, tobacco abuse, pneumonia, hypoxia, hypercapnia, anemia., infection/sepsis., pulmonary edema. Asthma, Cardiac tamponade, infection.) X-Ray, Labs, Meds, VS Vital Signs Date Time Temp Pulse Resp B/P (MAP) Pulse Ox O2 Delivery O2 Flow Rate FiO2 02/16/25 17:00 111 22 143/71 (95) 96 02/16/25 16:00 110 02/16/25 15:00 108 22 134/80 (98) 96 02/16/25 14:30 109 24 134/77 (96) 96 02/16/25 14:25 98.4 02/16/25 13:25 98.6 02/16/25 13:25 119/61 02/16/25 12:08 98 Nasal Cannula* 2 28 02/16/25 12:00 115 02/16/25 12:00 98.6 113 20 119/61 (80) 98 98.6 02/16/25 12:00 113 20 98 Nasal Cannula* 2 28 02/16/25 09:50 124 02/16/25 09:47 99.8 125 24 152/72 94 99.8 Lab Test 02/16/25 13:57 02/16/25 13:30 02/16/25 12:15 02/16/25 11:53 Range/Units Troponin I High Sensitivity 8 7 </=34 ng/L Urine Color Yellow Yellow Urine Clarity Turbid H Clear Urine pH 5.5 5.0-9.0 Urine Specific [place] 1.026 1.001-1.035 Urine Protein 1+ H Negative Urine Ketones Trace Negative Urine Blood Trace H Negative /uL Urine Nitrite Negative Negative Urine Bilirubin Negative Negative Urine Urobilinogen Normal Negative mg/dL Urine Leukocyte Esterase 3+ Negative /uL Urine RBC 5 0 - 4 /hpf Urine Microscopic WBC 48 H 0-5 /HPF Urine Squamous Epithelial Cells Many <5 /hpf Urine Bacteria Many H None Seen /hpf Urine Mucus Few None Seen Urine Glucose Normal Normal mg/dL Influenza Type A Antigen Negative Negative Influenza Type B Antigen Negative Negative SARS-CoV-2 Antigen (Rapid) Negative NEGATIVE Test 02/16/25 10:40 Range/Units White Blood Count 19.0 H 4.4-10.8 10^3/uL Red Blood Count 8.48 H 4.0-5.20 10^6/uL Hemoglobin 18.7 H 12.2-16.2 g/dL Hematocrit 60.6 H 36.0-46.0 % Mean Corpuscular Volume 71.4 L 80.0-100.0 fL Mean Corpuscular Hemoglobin 22.0 L 28.0-32.0 pg Mean Corpuscular Hemoglobin Concent 30.9 L 32.0-36.0 g/dL Red Cell Distribution Width 21.3 H 11.8-14.3 % Platelet Count 579 H 140-450 10^3/uL Mean Platelet Volume 7.3 6.9-10.8 fL Neutrophils (%) (Auto) 90.1 H 37.0-80.0 % Lymphocytes (%) (Auto) 5.1 L 10.0-50.0 % Monocytes (%) (Auto) 4.0 0.0-12.0 % Eosinophils (%) (Auto) 0.1 0.0-7.0 % Basophils (%) (Auto) 0.7 0.0-2.0 % Neutrophils # (Auto) 17.1 H 1.6-8.6 10 ^3/uL Lymphocytes # (Auto) 1.0 0.4-5.4 10 ^3/uL Monocytes # (Auto) 0.8 0-1.3 10 ^3/uL Eosinophils # (Auto) 0 0-0.8 10 ^3/uL Basophils # (Auto) 0.1 0-0.2 10 ^3/uL Nucleated Red Blood Cells 0.7 % Platelet Estimate Increased Large Platelets Few Giant Platelets Few Hypochromasia (manual) Moderate Anisocytosis (manual) Slight Microcytosis Moderate Stomatocytes Few Sodium Level 137 136-145 mmol/L Potassium Level 4.4 3.5-5.1 mmol/L Chloride Level 101 98-107 mmol/L Carbon Dioxide Level 25 20-31 mmol/L Anion Gap 11 5-15 Blood Urea Nitrogen 18 9-23 mg/dL Creatinine 1.14 H 0.550-1.02 mg/dL Glomerular Filtration Rate Calc 52 >90 mL/min BUN/Creatinine Ratio 15.8 10.0-20.0 Serum Glucose 119 H 74-106 mg/dL Lactic Acid Level 1.4 0.4-2.0 mmol/L Calcium Level 9.7 8.7-10.4 mg/dL Magnesium Level 2.3 1.6-2.6 mg/dL Total Bilirubin 2.0 H 0.2-1.0 mg/dL Aspartate Amino Transferase (AST) 43 H 13-40 U/L Alanine Aminotransferase (ALT) 24 7-40 U/L Alkaline Phosphatase 112 46-116 U/L Troponin I High Sensitivity 8 </=34 ng/L B-Type Natriuretic Peptide 20.46 0-100 pg/mL Total Protein 8.1 5.7-8.2 g/dL Albumin 4.3 3.2-4.8 g/dL Microbiology Date/Time Source Procedure Growth Status 02/16/25 13:30 Voided Urine Urine Culture - Preliminary Resulted 02/16/25 10:40 Blood Blood Culture - Preliminary NO GROWTH AFTER 24 HOURS OF INCUBATION. Resulted 02/16/25 10:25 Blood Blood Culture - Preliminary NO GROWTH AFTER 24 HOURS OF INCUBATION. Resulted [place] [address] Ph: [phone] DIAGNOSTIC IMAGING Diagnostic Imaging Report : [id number] Signed PATIENT: NAREN SCHRADER BACCT: [id number] UNIT: [id number] : 1955 LOC: ER ROOM / BED: / AGE / SEX: 69 / F ADM STATUS: REG ER SERVICE [id number] ORDERING PHYSICIAN: ROBBIN VANG DO PROCEDURE(s): CXRP - CHEST PORTABLE REASON: cp ORDER NUMBER(s): [id number], ACCESSION NUMBER(s): [id number] EXAM: XY CHEST PORTABLE Indication: cp Technique: Single frontal view of the chest was obtained Comparison: CT CHEST WITHOUT CONTRAST on DOS: 09/15/24, XY CHEST PORTABLE on DOS: 09/14/24, CT HI-RESOLUTION CHEST CT on DOS: 08/12/24, XY CHEST PORTABLE on DOS: 08/11/24, CT CHEST WITHOUT CONTRAST on DOS: 09/16/23 FINDINGS: Lines and Tubes: None Lungs: No focal consolidation. Pulmonary vascular congestion. Pleura: No effusion. No pneumothorax. Cardiomediastinal contours: Unremarkable. Atherosclerotic vascular calcificatio ns of the thoracic aorta are noted. Bones: No acute osseous abnormality. IMPRESSION: Prominence of the right hilar region with pulmonary vascular congestion and pulmonary edema. ATED BY: YOSHI TORRES MD DICTATED DATE/TIME: 02/16/25 103 SIGNED BY: YOSHI TORRES MD SIGNED DATE/TIME: 02/16/251032 CC: Time of 1ST Reevaluation: 11:39 Reevaluation 1ST: Unchanged Time of 2ND Reevaluation: 12:03 (As of now, only one set of vital signs initially from triage has been charted.) Patient Education/Counseling: Diagnosis, Treatment Family Education/Counseling: Diagnosis, Treatment Comments MDM: patient presented with the above HPI.---respiratory distress---workup was initiated. patient was found with the above mentioned diagnosis. the following medications were ordered: please refer to order lists of meds and tests obtained by myself Dr. Vang. Patient ED course and VS have been stabilized. Patient has been reassessed in the ED and remained in a stable condition. Pertinent incidental findings were discussed with the patient and/or family. Patient/family voices understanding and is agreeable with plan. Patient has been observed in the ED adequate length of time to insure improvement/stability. Escalation of care considered: Consideration of escalation to observation or admission Patient was given Tylenol, Rocephin, Lasix, aspirin. Medicine team started Lovenox. Patient was ADMITTED to the medicine team for further evaluation and treatment of their presentation. All the reports of any imaging studies that were ordered by myself were reviewed by myself. Departure 1 Departure Time of Disposition: 12:03 Impression: Primary Impression: Dyspnea Additional Impressions: Chest pain Leukocytosis Pulmonary vascular congestion UTI (urinary tract infection) Elevated d-dimer Disposition: ADMITTED INPATIENT Admit to: Tele Condition: Guarded Discharged With: Self Critical Care Note Critical Care Time?: Yes (1 hr-critical care time only) Heart Score Heart Score: Heart Score Response (Comments) Value History Highly Suspicious 2 EKG Normal 0 Age >65 2 Risk Factors >3 or Hx ASHD 2 Troponin Normal limit 0 Total 6 I personally scribed for ROBBIN VANG DO ([email or web address]) on 02/16/25 at 10:41. Electronically submitted by Adam Couch ([email or web address]). I personally scribed for ROBBIN VANG DO ([email or web address]) on 02/16/25 at 11:07. Electronically submitted by Adam Couch ([email or web address]). I personally scribed for ROBBIN VANG DO ([email or web address]) on 02/16/25 at 11:12. Electronically submitted by Adam Couch ([email or web address]). ROBBIN VANG DO Feb 16, 2025 10:36
[2025-02-16 11:07] LABS: Hemoglobin 18.7 g/dL (12.2-16.2); Nucleated Red Blood Cells % 0.7 %
[2025-02-16 11:08] LABS: Mean Corpuscular Hemoglobin 22.0 pg (28.0-32.0); Mean Corpuscular Volume 71.4 fL (80.0-100.0)
[2025-02-16 11:12] LABS: Hematocrit 60.6 % (36.0-46.0)
[2025-02-16 11:22] LABS: Alanine Aminotransferase 24 U/L (7-40); Albumin 4.3 g/dL (3.2-4.8); Alkaline Phosphatase 112 U/L (46-116); Anion Gap 11 (5-15); BUN/Creatinine Ratio 15.8 (10.0-20.0); Blood Urea Nitrogen 18 mg/dL (9-23); Calcium 9.7 mg/dL (8.7-10.4); Carbon Dioxide 25 mmol/L (20-31); Chloride 101 mmol/L (98-107); Magnesium 2.3 mg/dL (1.6-2.6); Potassium 4.4 mmol/L (3.5-5.1); Sodium 137 mmol/L (136-145); Total Protein 8.1 g/dL (5.7-8.2)
[2025-02-16 11:27] LABS: Bilirubin, Total 2.0 mg/dL (0.2-1.0); Glucose 119 mg/dL (74-106)
[2025-02-16 12:00] VITALS: PULSE 113; RESP 20; O2SAT 98
[2025-02-16 12:24] LABS: Anisocytosis Slight
[2025-02-16 12:25] LABS: Giant Platelets Few; Stomatocytes Few
[2025-02-16] MEDS: ASPirin-EC 325mg tab PO ONE (13:23)
[2025-02-16] MEDS: ACETAMINOPHEN 325 MG TAB PO ONE (13:25)
[2025-02-16] MEDS: FUROSEMIDE 40 MG/4 ML VIAL IV ONE (13:25)
[2025-02-16 13:35] LABS: COVID19 ANTIGEN SOFIA FIA NEGATIVE (NEGATIVE)
[2025-02-16 14:06] LABS: Urine Protein, UAD 1+ (Negative)
--- NOTE | 2025-02-16 14:42 | ECG ---
[facility] Test Date: 2025-02-16 Test Time: 09:50:36 Pat Name: NAREN CHANG Department: Room: 0216T Gender: F Ios Developer: veronica : 1955 Requested By: ROBBIN VANG Order Number: [id number] Reading MD: Tomer Bhardwaj Measurements Intervals [place] Rate: 124 P: 69 AR: 154 QRS: 10 QRSD: 87 T: 80 QT: 324 QTc: 466 Interpretive Statements Sinus tachycardia Ventricular premature complex LAE, consider biatrial enlargement ST elevation, consider inferior injury Baseline wander in lead(s) II,III,aVR,aVF,V3,V4,V6 Electronically Signed On 02-17-2025 22:16:31 PDT by Tomer Bhardwaj Please click the below link to view image of tracing.
[2025-02-16] MEDS: SODIUM CHLORIDE 0.9% 1,000 ML IV ONE (18:13)
[2025-02-16] MEDS ORDERED: VANCOMYCIN PER PHARMACY 0 MG IV SCH (18:45)
[2025-02-16] MEDS ORDERED: MORPHINE SULFATE 4 MG/ML SYR/VIAL IV PRN (18:45)
[2025-02-16] MEDS ORDERED: NITROGLYCERIN 0.4 MG SL TAB SL PRN (18:45)
[2025-02-16] MEDS: LEVALBUTEROL HCL 1.25 MG/3 ML NEB NEB ONE (19:22)
[2025-02-16] MEDS: IPRATROPIUM BROM 0.5 MG/2.5ML INH SOL NEB ONE (19:22)
--- NOTE | 2025-02-16 20:07 | DVH ---
CLINICAL HISTORY: suspected DVT TECHNIQUE: Color and duplex doppler imagine of the bilateral lower extremity veins was performed. Ves sonal compression and augmentation if possible was also performed. COMPARISON: US BILAT LOWER DVT on DOS: 07/10/23, US BILAT LOWER DVT on DOS: 05/30/23 FINDINGS: Right Lower Extremity: Right common femoral vein: Normal compressibility and flow. Right superficial femoral vein: Normal compressibility and flow. Right popliteal vein: Normal compressibility and flow. Proximal calf veins demonstrate flow. Left Lower Extremity: Left common femoral vein: Normal compressibility and flow. Left superficial femoral vein: Normal compressibility and flow. Left popliteal vein: Normal compressibility and flow. Proximal calf veins demonstrate flow. IMPRESSION: NO SONOGRAPHIC EVIDENCE FOR DEEP VENOUS THROMBOSIS IN THE BILATERAL LOWER EXTREMITY VEINS.
[2025-02-16] MEDS: VANCOMYCIN 1GM/250ML KIT 250 ML IV SCH (20:33)
--- NOTE | 2025-02-16 21:06 | DVHHPRES ---
History of Present Illness Resident Creating Document: DANUTAGraciaLAWRENCE FaganVERONICA RESIDENT History of Present Illness Patient is a 69-year-old female with a medical history of COPD on 2 L home oxygen, hypertension, palpitations presented to the ED with a chief complaint of worsening shortness of breath for the last 5 days. Patient reported that on Friday she started to have a running nose associated with shortness of breath which got worsened associated with a mild cough which started later. Patient denied fever, chills, recent sick contacts. Patient also reported of left-sided chest pain which was brought on when she was ambulating to the restroom and was relieved on resting, which she also reported of chest pain which worsened on inspiration on the left side. Patient denied any pain in her legs and reports that she was ambulating before she got sick does not report of any history of recent malignancy, no previous history of DVT or PE. Past medical history: COPD on 2 L home oxygen, hypertension, palpitations, possible depression Surgical history: Cholecystectomy, tubal ligation Social history: Patient was a previous smoker with 15-20 pack year smoking history, denied current smoking, alcohol, drug use Home medications: Amlodipine 5 mg daily, diltiazem 360 mg daily, Trelegy Ellipta inhaler, losartan 50 mg daily, nebulization Review of Systems Review of Systems Patient seen and examined at the bedside Reports of feeling shortness of breath but currently is on 2-3 L home oxygen Does report of some chest pain on the left side in the axillary region which worsens on taking deep breath Mild cough which is nonproductive Mild headache Denies abdominal pain, nausea, vomiting, diarrhea Allergies: Coded Allergies: Codeine (Verified Allergy, Unknown, 05/30/23) Medications Current Medications Medications Dose Ordered Sig/Kaila Route Start Time Stop Time Status Last Admin Dose Admin Nitroglycerin 0.4 mg Q5MINP PRN SL 02/16/25 18:45 Morphine Sulfate 2 mg Q30M PRN IV 02/16/25 18:45 Vancomycin HCl 0 ml @ 0 mls/hr UD IV 02/16/25 18:45 Ceftriaxone Sodium 50 ml @ 100 mls/hr DAILY@09 IV 02/17/25 09:00 Doxycycline Monohydrate 100 mg Q12HR PO 02/16/25 22:00 Levalbuterol HCl 0.625 mg Q6HR NEB 02/17/25 00:00 Ipratropium [place] 0.5 mg Q6HR NEB 02/17/25 00:00 Vancomycin HCl 250 ml @ 250 mls/hr Q1H IV 02/16/25 20:00 02/16/25 21:59 Exam Vital Signs Vital Signs Date Time Temp Pulse Resp B/P (MAP) Pulse Ox O2 Delivery O2 Flow Rate FiO2 02/16/25 19:22 19 98 Nasal Cannula* 2 28 02/16/25 19:00 108 144/83 (103) 02/16/25 14:25 98.4 Exam Gen - no pallor, no icterus, no cyanosis, no pedal edema . Skin - Patients skin is warm and dry. HEENT - normocephalic, atraumatic, moist mucous membranes. Neck - full ROM, no LAD, no JVD Pulmonary - B/L diminished breath sounds without any wheezing or rales cardiovascular - regular S1,S2 heard, no added sounds, no murmurs heard. peripheral pulses normal radial 2+, pedal 2+. capillary refill normal about 3 seconds GI - soft, nontender abdomen. no hepatospleenomegaly. Bowel sounds normoactive Neurological - Patient is A/O X 3 . Bilateral upper extremity strength 5/5, bilateral lower extremity strength 5/5, no facial droop, normal speech, no tremor, no sensory deficiets. Labs/Xrays Labs Test 02/16/25 18:59 02/16/25 13:57 02/16/25 13:30 02/16/25 12:15 Range/Units D-Dimer, Quantitative 1.38 H 0.0-0.49 mg/L FEU Lactic Acid Level 1.2 0.4-2.0 mmol/L Troponin I High Sensitivity 8 </=34 ng/L Urine Color Yellow Yellow Urine Clarity Turbid H Clear Urine pH 5.5 5.0-9.0 Urine Specific [place] 1.026 1.001-1.035 Urine Protein 1+ H Negative Urine Ketones Trace Negative Urine Blood Trace H Negative /uL Urine Nitrite Negative Negative Urine Bilirubin Negative Negative Urine Urobilinogen Normal Negative mg/dL Urine Leukocyte Esterase 3+ Negative /uL Urine RBC 5 0 - 4 /hpf Urine Microscopic WBC 48 H 0-5 /HPF Urine Squamous Epithelial Cells Many <5 /hpf Urine Bacteria Many H None Seen /hpf Urine Mucus Few None Seen Urine Glucose Normal Normal mg/dL Influenza Type A Antigen Negative Negative Influenza Type B Antigen Negative Negative SARS-CoV-2 Antigen (Rapid) Negative NEGATIVE Test 02/16/25 10:40 Range/Units White Blood Count 19.0 H 4.4-10.8 10^3/uL Red Blood Count 8.48 H 4.0-5.20 10^6/uL Hemoglobin 18.7 H 12.2-16.2 g/dL Hematocrit 60.6 H 36.0-46.0 % Mean Corpuscular Volume 71.4 L 80.0-100.0 fL Mean Corpuscular Hemoglobin 22.0 L 28.0-32.0 pg Mean Corpuscular Hemoglobin Concent 30.9 L 32.0-36.0 g/dL Red Cell Distribution Width 21.3 H 11.8-14.3 % Platelet Count 579 H 140-450 10^3/uL Mean Platelet Volume 7.3 6.9-10.8 fL Neutrophils (%) (Auto) 90.1 H 37.0-80.0 % Lymphocytes (%) (Auto) 5.1 L 10.0-50.0 % Monocytes (%) (Auto) 4.0 0.0-12.0 % Eosinophils (%) (Auto) 0.1 0.0-7.0 % Basophils (%) (Auto) 0.7 0.0-2.0 % Neutrophils # (Auto) 17.1 H 1.6-8.6 10 ^3/uL Lymphocytes # (Auto) 1.0 0.4-5.4 10 ^3/uL Monocytes # (Auto) 0.8 0-1.3 10 ^3/uL Eosinophils # (Auto) 0 0-0.8 10 ^3/uL Basophils # (Auto) 0.1 0-0.2 10 ^3/uL Nucleated Red Blood Cells 0.7 % Platelet Estimate Increased Large Platelets Few Giant Platelets Few Hypochromasia (manual) Moderate Anisocytosis (manual) Slight Microcytosis Moderate Stomatocytes Few Sodium Level 137 136-145 mmol/L Potassium Level 4.4 3.5-5.1 mmol/L Chloride Level 101 98-107 mmol/L Carbon Dioxide Level 25 20-31 mmol/L Anion Gap 11 5-15 Blood Urea Nitrogen 18 9-23 mg/dL Creatinine 1.14 H 0.550-1.02 mg/dL Glomerular Filtration Rate Calc 52 >90 mL/min BUN/Creatinine Ratio 15.8 10.0-20.0 Serum Glucose 119 H 74-106 mg/dL Calcium Level 9.7 8.7-10.4 mg/dL Magnesium Level 2.3 1.6-2.6 mg/dL Total Bilirubin 2.0 H 0.2-1.0 mg/dL Aspartate Amino Transferase (AST) 43 H 13-40 U/L Alanine Aminotransferase (ALT) 24 7-40 U/L Alkaline Phosphatase 112 46-116 U/L B-Type Natriuretic Peptide 20.46 0-100 pg/mL Total Protein 8.1 5.7-8.2 g/dL Albumin 4.3 3.2-4.8 g/dL SEPSIS Sepsis Screen Date sepsis recognized/suspect: Feb 16, 2025 Time Sepsis recognized/suspect: 1200 Recent Procedure: No On Antibiotic Therapy: No Respiratory Rate >20: Yes Heart Rate >90: Yes Temp<36 C (96.8 F) or >38.3 C: No SBP <90 or MAP <65 mmHG: No New Acute Mental Status Change: No Is the patient on CPAP, BIPAP,: No Physician Orders Admit (02/16/25 18:35) Nitroglycerin Sublingual (Ntrostat Subli (02/16/25 18:45) Oxygen By Nasal Cannula (02/16/25 18:35) Stat Ekg For Chest Pain (02/16/25 18:35) Notify Md Of Changes From Base (02/16/25 18:35) Supervisor Cab For 24 Hours (02/16/25 18:35) Emergency Dysrhythmia Protocol (02/16/25 18:35) Mrsa Screen (02/16/25 18:35) Respiratory Culture W/ Gs (02/16/25 18:35) Urine Bacterial Culture (02/16/25 18:35) Bilat Lower Dvt (02/16/25 18:35) Vancomycin Per Pharmacy (02/16/25 18:45) Ceftriaxone 1gm/50ml (Rocephin) (02/17/25 09:00) Doxycycline Tablet (Vibramycin Tablet) (02/16/25 22:00) Levalbuterol Hcl (Xopenex Medneb) (02/17/25 00:00) Ipratropium Medneb (Atrovent Medneb) (02/17/25 00:00) Echo 2d Mode Cardiac Dop (02/16/25 18:50) Strict I & O QSHIFT (02/16/25 18:50) Strict I&O (02/16/25 ) Morphine Sulfate Injection (02/16/25 18:45) Vancomycin 1gm/250ml Kit (02/16/25 20:00) Vital Signs Date Time Temp Pulse Resp B/P (MAP) Pulse Ox O2 Delivery O2 Flow Rate FiO2 02/16/25 19:22 19 98 Nasal Cannula* 2 28 02/16/25 19:00 108 20 144/83 (103) 96 02/16/25 17:00 111 22 143/71 (95) 96 02/16/25 16:00 110 02/16/25 15:00 108 22 134/80 (98) 96 02/16/25 14:30 109 24 134/77 (96) 96 02/16/25 14:25 98.4 02/16/25 13:25 98.6 02/16/25 13:25 119/61 02/16/25 12:08 98 Nasal Cannula* 2 28 02/16/25 12:00 115 02/16/25 12:00 98.6 113 20 119/61 (80) 98 98.6 02/16/25 12:00 113 20 98 Nasal Cannula* 2 28 Laboratory Tests Test 02/16/25 10:40 02/16/25 18:59 Lactic Acid Level 1.4 mmol/L (0.4-2.0) 1.2 mmol/L (0.4-2.0) White Blood Count 19.0 10^3/uL (4.4-10.8) H Medications Medications Dose Ordered Sig/Kaila Route Start Time Stop Time Status Last Admin Dose Admin Acetaminophen 650 mg ONCE ONCE PO 02/16/25 13:15 02/16/25 13:16 DC 02/16/25 13:25 650 MG Ceftriaxone Sodium 50 ml @ 100 mls/hr ONCE ONCE IV 02/16/25 12:15 02/16/25 12:44 DC 02/16/25 13:26 100 MLS/HR Furosemide 40 mg ONCE ONCE IV 02/16/25 11:00 02/16/25 11:04 DC 02/16/25 13:25 40 MG Ipratropium [place] 0.5 mg ONCE ONCE NEB 02/16/25 18:45 02/16/25 19:04 DC 02/16/25 19:22 0.5 MG Levalbuterol HCl 0.625 mg ONCE ONCE NEB 02/16/25 18:45 02/16/25 19:05 DC 02/16/25 19:22 0.625 MG Sodium Chloride 1,000 ml @ 1,000 mls/hr Q1H ONCE IV 02/16/25 18:00 02/16/25 18:59 DC 02/16/25 18:13 1,000 MLS/HR Assessment/Plan Assessment/Plan Acute on chronic hypoxic/hypercapnic respiratory failure Possible pneumonia likely due to Gram+/- bacteria COPD exacerbation likely due to pneumonia PE less likely, wells score< 4 Possible pleuritic chest pain - chest x-ray shows pulmonary vascular congestion and bilateral lower lobe opacities - on oxygen - sputum culture pending - MRSA screen pending - on vancomycin, ceftriaxone and doxycycline - IV fluids - duo nebs q.6 hours - lower extremity venous duplex pending Acute chest pain, ruled out ACS Hypertensive heart disease without history of heart failure Pulmonary vascular congestion History of palpitations - echocardiogram pending - ECG showed sinus tachycardia with left atrial enlargement - at home patient is on amlodipine 5 mg and diltiazem 360 mg, currently held with the patient is septic Sepsis likely due to pneumonia/UTI - sputum cultures pending - urine bacteria culture pending - on IV antibiotics vancomycin and ceftriaxone - lactic acid normal LEON on CKD likely due to VMN - IV fluids - monitor electrolytes and kidney function PUD prophylaxis: Protonix DVT prophylaxis: Enoxaparin Goals of care discussed with the patient and her sister at bedside for over 25 minutes. Full code Time spent: 47 minutes Plan discussed with Dr. Bustamante Plan discussed with: Patient, Other (RN ) My Orders Orders - MADHAV SMITH RESIDENT Procedure Category Date Status Time Admit ADMIT 02/16/25 Transmitted 18:35 Nitroglycerin PHA 02/16/25 In Process Sublingual (Ntrostat 18:45 Oxygen By Nasal RT 02/16/25 Transmitted Cannula 18:35 Stat Ekg For Chest JENNY 02/16/25 In Process Pain 18:35 Notify Of Changes JENNY 02/16/25 In Process From Base 18:35 Supervisor Cab For JENNY 02/16/25 In Process 24 Hours 18:35 Emergency Dysrhythmia JENNY 02/16/25 In Process Protocol 18:35 Mrsa Screen CHARLIE 02/16/25 Logged 18:35 Respiratory Culture CHARLIE 02/16/25 Logged W/ Gs 18:35 Urine Bacterial CHARLIE 02/16/25 In Process Culture 18:35 Bilat Lower Dvt US 02/16/25 Taken 18:35 Vancomycin Per PHA 02/16/25 In Process Pharmacy 18:45 Ceftriaxone 1gm/50ml PHA 02/17/25 In Process (Rocephin) 09:00 Doxycycline Tablet PHA 02/16/25 In Process (Vibramycin Tablet) 22:00 Levalbuterol Hcl PHA 02/17/25 In Process (Xopenex Medneb) 00:00 Ipratropium Medneb PHA 02/17/25 In Process (Atrovent Medneb) 00:00 Echo 2d Mode Cardiac US 02/16/25 Logged DOP 18:50 Strict I & O JENNY 02/16/25 In Process 18:50 Strict I&O ED NURSING 02/16/25 Transmitted Morphine Sulfate PHA 02/16/25 In Process Injection 18:45 Vancomycin 1gm/250ml PHA 02/16/25 In Process Kit 20:00 Date of Service: Feb 16, 2025 Billing Provider: MILLIE BUSTAMANTE MD Common Visit Codes: [id number] INP/OBS CARE (HIGH) Secondary Visit Codes: [id number] CARE PLAN 30 MINUTES MADHAV SMITH RESIDENT Feb 16, 2025 21:06 MILLIE BUSTAMANTE MD Feb 17, 2025 11:07
[2025-02-16 21:10] LABS: Base Excess 2.0 mmol/L (-2.0-3.0)
[2025-02-16 21:53] VITALS: BP 139/67; PULSE 119; RESP 18; TEMP 98; O2SAT 100
[2025-02-16] MEDS: DOXYCYCLINE 100 MG TAB/CAP PO SCH (22:49)
[2025-02-16] MEDS: ENOXAPARIN SOD 40 MG/0.4 ML SYRINGE SC ONE (22:50)
[2025-02-17] VITALS (17 sets, daily range): BP systolic 120–151; BP diastolic 62–92; PULSE 88–117; RESP 16–20; TEMP 97.6–98.9; O2SAT 93–100
[2025-02-17] MEDS: IPRATROPIUM BROM 0.5 MG/2.5ML INH SOL NEB SCH
[2025-02-17] MEDS: LEVALBUTEROL HCL 1.25 MG/3 ML NEB NEB SCH
[2025-02-17] MEDS: ONDANSETRON HCL 4 MG/2 ML VIAL IV ONE (02:46)
[2025-02-17] MEDS: PANTOPRAZOLE 40 MG TAB PO SCH (05:23)
[2025-02-17] MEDS: SODIUM CHLORIDE 0.9% 500 ML IV ONE (05:26)
[2025-02-17] MEDS: HYDROcodone-ACET 5/325MG TAB PO PRN (06:06)
[2025-02-17 07:27] LABS: Hematocrit 55.7 % (36.0-46.0); Hemoglobin 17.6 g/dL (12.2-16.2); Mean Corpuscular Hemoglobin 22.4 pg (28.0-32.0); Mean Corpuscular Volume 70.7 fL (80.0-100.0); Nucleated Red Blood Cells % 0.1 %
[2025-02-17 07:43] LABS: Alanine Aminotransferase 29 U/L (7-40); Albumin 4.0 g/dL (3.2-4.8); Alkaline Phosphatase 104 U/L (46-116); Anion Gap 14 (5-15); BUN/Creatinine Ratio 21.9 (10.0-20.0); Blood Urea Nitrogen 21 mg/dL (9-23); Calcium 9.2 mg/dL (8.7-10.4); Carbon Dioxide 24 mmol/L (20-31); Chloride 103 mmol/L (98-107); Cholesterol 114 mg/dL (< 200); Glucose 94 mg/dL (74-106); Magnesium 2.1 mg/dL (1.6-2.6); Potassium 3.9 mmol/L (3.5-5.1); Sodium 141 mmol/L (136-145); Total Protein 7.4 g/dL (5.7-8.2); Triglycerides 113 mg/dL (< 150)
[2025-02-17 07:47] LABS: Bilirubin, Total 1.3 mg/dL (0.2-1.0); HDL Cholesterol 32 mg/dL (40-59)
[2025-02-17] MEDS: ENOXAPARIN SOD 40 MG/0.4 ML SYRINGE SC SCH (09:59)
[2025-02-17] MEDS: VANCOMYCIN 1GM/250ML KIT 250 ML IV SCH (13:10)
[2025-02-17] MEDS: ALPRAZolam 0.25 MG TAB PO PRN (14:45)
--- NOTE | 2025-02-17 18:07 | DVHPNRES ---
Progress Note Date Seen: Feb 17, 2025 Resident Creating Document: LAWRENCE SMITHVERONICA RESIDENT Medical Necessity Reason Pt with a Central, PICC or Fol: No Subjective Review of Systems HPI Patient is a 69-year-old female with a medical history of COPD on 2 L home oxygen, hypertension, palpitations presented to the ED with a chief complaint of worsening shortness of breath for the last 5 days. Patient reported that on Friday she started to have a running nose associated with shortness of breath which got worsened associated with a mild cough which started later. Patient denied fever, chills, recent sick contacts. Patient also reported of left-sided chest pain which was brought on when she was ambulating to the restroom and was relieved on resting, which she also reported of chest pain which worsened on inspiration on the left side. Patient denied any pain in her legs and reports that she was ambulating before she got sick does not report of any history of recent malignancy, no previous history of DVT or PE. Past medical history: COPD on 2 L home oxygen, hypertension, palpitations, possible depression Surgical history: Cholecystectomy, tubal ligation Social history: Patient was a previous smoker with 15-20 pack year smoking history, denied current smoking, alcohol, drug use Home medications: Amlodipine 5 mg daily, diltiazem 360 mg daily, Trelegy Ellipta inhaler, losartan 50 mg daily, nebulization Review of systems Patient to be reports be feeling better and is currently breathing at her home oxygen 2L/min cough and phelgm is better no fever or chills Objective vital signs Vital Sign Date Time Temp Pulse Resp B/P (MAP) Pulse Ox O2 Delivery O2 Flow Rate FiO2 02/17/25 13:00 97.9 109 16 151/77 (101) 94 97.9 02/17/25 11:57 Nasal Cannula 2.0 02/17/25 11:57 28 Total Intake and Output 02/16/25 02/16/25 02/17/25 15:00 23:00 07:00 Intake Total 50 ml 250 ml Output Total 400 ml Balance 50 ml -400 ml 250 ml medications Current Medications Medications Dose Ordered Sig/Kaila Route Start Time Stop Time Status Last Admin Dose Admin Nitroglycerin 0.4 mg Q5MINP PRN SL 02/16/25 18:45 Vancomycin HCl 0 ml @ 0 mls/hr UD IV 02/16/25 18:45 Ceftriaxone Sodium 50 ml @ 100 mls/hr DAILY@09 IV 02/17/25 09:00 02/17/25 10:00 100 MLS/HR Doxycycline Monohydrate 100 mg Q12HR PO 02/16/25 22:00 02/17/25 09:59 100 MG Levalbuterol HCl 0.625 mg Q6HR NEB 02/17/25 00:00 02/17/25 12:05 0.625 MG Ipratropium [place] 0.5 mg Q6HR NEB 02/17/25 00:00 02/17/25 12:05 0.5 MG Acetaminophen 650 mg Q6HP PRN PO 02/16/25 20:30 Acetaminophen/ Hydrocodone Bitart 1 tab Q6HPRN PRN PO 02/16/25 20:30 02/17/25 13:25 1 TAB Pantoprazole Sodium 40 mg DAILY@0600 PO 02/17/25 06:00 02/17/25 05:23 40 MG Enoxaparin Sodium 40 mg DAILY SC 02/17/25 10:00 02/17/25 09:59 40 MG Vancomycin HCl 250 ml @ 250 mls/hr Q12H IV 02/17/25 11:00 02/17/25 13:10 250 MLS/HR Alprazolam 0.25 mg Q8HP PRN PO 02/17/25 13:45 02/17/25 14:45 0.25 MG Examination Gen - no pallor, no icterus, no cyanosis, no pedal edema . Skin - Patients skin is warm and dry. HEENT - normocephalic, atraumatic, moist mucous membranes. Neck - full ROM, no LAD, no JVD Pulmonary - B/L diminished breath sounds without any wheezing or rales cardiovascular - regular S1,S2 heard, no added sounds, no murmurs heard. peripheral pulses normal radial 2+, pedal 2+. capillary refill normal about 3 seconds GI - soft, nontender abdomen. no hepatospleenomegaly. Bowel sounds normoactive Neurological - Patient is A/O X 3 . Bilateral upper extremity strength 5/5, bilateral lower extremity strength 5/5, no facial droop, normal speech, no tremor, no sensory deficiets. laboratory and microbiology Laboratory Tests 02/17/25 05:40 Test 02/17/25 05:40 Range/Units Serum Glucose 94 74-106 mg/dL Microbiology Date/Time Source Procedure Growth Status 02/16/25 13:30 Voided Urine Urine Culture - Preliminary Resulted 02/16/25 10:40 Blood Blood Culture - Preliminary NO GROWTH AFTER 24 HOURS OF INCUBATION. Resulted Problem List/Assessment/Plan Problem List/Assessment/Plan Acute on chronic hypoxic/hypercapnic respiratory failure Possible pneumonia likely due to Gram+/- bacteria COPD exacerbation likely due to pneumonia PE less likely, wells score< 4 Possible pleuritic chest pain - chest x-ray shows pulmonary vascular congestion and bilateral lower lobe opacities - on oxygen - sputum culture pending - MRSA screen pending - on vancomycin, ceftriaxone and doxycycline - IV fluids used judiciously - duo nebs q.6 hours - lower extremity venous duplex shows no DVT Acute chest pain, ruled out ACS Hypertensive heart disease without history of heart failure Pulmonary vascular congestion History of palpitations - echocardiogram pending - ECG showed sinus tachycardia with left atrial enlargement - at home patient is on amlodipine 5 mg and diltiazem 360 mg, currently held as the patient is hypotensive Sepsis likely due to pneumonia/UTI - sputum cultures pending - urine bacteria culture pending - on IV antibiotics vancomycin and ceftriaxone LEON on CKD likely due to VMN - IV fluids - monitor electrolytes and kidney function PUD prophylaxis: Protonix DVT prophylaxis: Enoxaparin Goals of care discussed with the patient for over 19 minutes. Full code Time spent: 33 minutes Plan discussed with Dr. Bustamante Plan discussed with: Patient, Other (SOCRATES Donald) My Orders My Orders Orders - MADHAV SMITH RESIDENT Procedure Category Date Status Time Admit ADMIT 02/16/25 Transmitted 18:35 Nitroglycerin PHA 02/16/25 In Process Sublingual (Ntrostat 18:45 Oxygen By Nasal RT 02/16/25 Transmitted Cannula 18:35 Stat Ekg For Chest JENNY 02/16/25 In Process Pain 18:35 Notify Of Changes JENNY 02/16/25 In Process From Base 18:35 Executive Sales Assistant For JENNY 02/16/25 In Process 24 Hours 18:35 Emergency Dysrhythmia JENNY 02/16/25 In Process Protocol 18:35 Mrsa Screen CHARLIE 02/16/25 In Process 18:35 Respiratory Culture CHARLIE 02/16/25 Logged W/ Gs 18:35 Urine Bacterial CHARLIE 02/16/25 In Process Culture 18:35 Bilat Lower Dvt US 02/16/25 Resulted 18:35 Vancomycin Per PHA 02/16/25 In Process Pharmacy 18:45 Ceftriaxone 1gm/50ml PHA 02/17/25 In Process (Rocephin) 09:00 Doxycycline Tablet PHA 02/16/25 In Process (Vibramycin Tablet) 22:00 Levalbuterol Hcl PHA 02/17/25 In Process (Xopenex Medneb) 00:00 Ipratropium Medneb PHA 02/17/25 In Process (Atrovent Medneb) 00:00 Strict I & O JENNY 02/16/25 In Process 18:50 Strict I&O ED NURSING 02/16/25 Transmitted Acetaminophen Tablet PHA 02/16/25 In Process (Tylenol Tablet) 20:30 Hydrocodone-Acet PHA 02/16/25 In Process 5/325mg Tab ([place] 20:30 Cardiac DIET 02/17/25 Transmitted Diet-2gna,Lofat,Lochol Breakfast Pantoprazole Tablet PHA 02/17/25 In Process (Protonix Tablet) 06:00 Enoxaparin Sodium PHA 02/17/25 In Process (Lovenox) 10:00 Abg W/ Co-Ox RT 02/16/25 Logged 21:05 Hepatitis B Surface LAB 02/17/25 In Process Antigen 02:19 Hepatitis C Antibody LAB 02/17/25 In Process 02:19 * Storekeeper Steward CONS 02/17/25 Transmitted Consult 03:29 Vancomycin 1gm/250ml PHA 02/17/25 In Process Kit 11:00 Vancomycin Per JENNY 02/17/25 In Process Pharmacy Protoc 10:36 Creatinine LAB 02/18/25 Verified 04:00 Vancomycin,Trough LAB 02/18/25 Verified 22:00 Date of Service: Feb 17, 2025 Billing Provider: MILLIE BUSTAMANTE MD Common Visit Codes: [id number] INP/OBS CARE(HIGH) MADHAV SMITH RESIDENT Feb 17, 2025 18:07 MILLIE BUSTAMANTE MD Feb 22, 2025 20:37
[2025-02-17] MEDS: ACETAMINOPHEN 325 MG TAB PO PRN (18:28)
[2025-02-18] VITALS (16 sets, daily range): BP systolic 123–154; BP diastolic 70–94; PULSE 87–115; RESP 16–19; TEMP 97.2–98.5; O2SAT 92–100
[2025-02-18 06:50] LABS: Hemoglobin 16.9 g/dL (12.2-16.2)
[2025-02-18 06:53] LABS: Hematocrit 53.8 % (36.0-46.0); Mean Corpuscular Hemoglobin 22.3 pg (28.0-32.0); Mean Corpuscular Volume 70.9 fL (80.0-100.0); Nucleated Red Blood Cells % 0.5 %
[2025-02-18 07:04] LABS: Anion Gap 11 (5-15); Calcium 9.1 mg/dL (8.7-10.4); Carbon Dioxide 27 mmol/L (20-31); Chloride 101 mmol/L (98-107); Potassium 3.5 mmol/L (3.5-5.1); Sodium 139 mmol/L (136-145)
[2025-02-18 07:10] LABS: BUN/Creatinine Ratio 20.5 (10.0-20.0); Blood Urea Nitrogen 18 mg/dL (9-23); Glucose 99 mg/dL (74-106)
[2025-02-18] MEDS: POLYETHYLENE GLYCOL 17 GM PWDR PO PRN (10:20)
[2025-02-18] MEDS: LOSARTAN POTASSIUM 50 MG TAB PO SCH (10:21)
[2025-02-18 12:47] LABS: Hepatitis B Surface Antigen Negative (Negative); Hepatitis C Antibody Negative (Negative)
--- NOTE | 2025-02-18 18:02 | DVHPNRES ---
Progress Note Date Seen: Feb 18, 2025 Resident Creating Document: LAWRENCE SMITHVERONICA RESIDENT Medical Necessity Reason Pt with a Central, PICC or Fol: No Subjective Review of Systems HPI Patient is a 69-year-old female with a medical history of COPD on 2 L home oxygen, hypertension, palpitations presented to the ED with a chief complaint of worsening shortness of breath for the last 5 days. Patient reported that on Friday she started to have a running nose associated with shortness of breath which got worsened associated with a mild cough which started later. Patient denied fever, chills, recent sick contacts. Patient also reported of left-sided chest pain which was brought on when she was ambulating to the restroom and was relieved on resting, which she also reported of chest pain which worsened on inspiration on the left side. Patient denied any pain in her legs and reports that she was ambulating before she got sick does not report of any history of recent malignancy, no previous history of DVT or PE. Past medical history: COPD on 2 L home oxygen, hypertension, palpitations, possible depression Surgical history: Cholecystectomy, tubal ligation Social history: Patient was a previous smoker with 15-20 pack year smoking history, denied current smoking, alcohol, drug use Home medications: Amlodipine 5 mg daily, diltiazem 360 mg daily, Trelegy Ellipta inhaler, losartan 50 mg daily, nebulization Review of systems Patient to be reports be feeling better and is currently breathing at her home oxygen 2L/min, cough and phelgm is better no fever or chills, but is not comfortable going home today Objective vital signs Vital Sign Date Time Temp Pulse Resp B/P (MAP) Pulse Ox O2 Delivery O2 Flow Rate FiO2 02/18/25 17:00 98.5 92 18 123/72 (89) 96 98.5 02/18/25 08:00 Nasal Cannula* 2 28 Total Intake and Output 02/17/25 02/17/25 02/18/25 15:00 23:00 07:00 Intake Total 650 ml 750 ml Balance 650 ml 750 ml medications Current Medications Medications Dose Ordered Sig/Kaila Route Start Time Stop Time Status Last Admin Dose Admin Nitroglycerin 0.4 mg Q5MINP PRN SL 02/16/25 18:45 Vancomycin HCl 0 ml @ 0 mls/hr UD IV 02/16/25 18:45 Ceftriaxone Sodium 50 ml @ 100 mls/hr DAILY@09 IV 02/17/25 09:00 02/18/25 10:22 100 MLS/HR Doxycycline Monohydrate 100 mg Q12HR PO 02/16/25 22:00 02/18/25 10:21 100 MG Acetaminophen 650 mg Q6HP PRN PO 02/16/25 20:30 02/17/25 18:28 650 MG Acetaminophen/ Hydrocodone Bitart 1 tab Q6HPRN PRN PO 02/16/25 20:30 02/18/25 00:42 1 TAB Pantoprazole Sodium 40 mg DAILY@0600 PO 02/17/25 06:00 02/18/25 06:00 40 MG Enoxaparin Sodium 40 mg DAILY SC 02/17/25 10:00 02/18/25 10:21 40 MG Vancomycin HCl 250 ml @ 250 mls/hr Q12H IV 02/17/25 11:00 02/18/25 12:13 250 MLS/HR Alprazolam 0.25 mg Q8HP PRN PO 02/17/25 13:45 02/18/25 10:22 0.25 MG Polyethylene Glycol 17 gm DAILYPRN PRN PO 02/18/25 01:30 02/18/25 10:20 17 GM Losartan Potassium 50 mg DAILY PO 02/18/25 10:00 02/18/25 10:21 50 MG Ipratropium [place] 0.5 mg Q4HR NEB 02/18/25 18:00 Levalbuterol HCl 0.625 mg Q4HR NEB 02/18/25 18:00 Guaifenesin/ Dextromethorphan 10 ml Q4HP PRN PO 02/18/25 16:45 Amlodipine Besylate 5 mg DAILY PO 02/19/25 22:00 Examination Gen - no pallor, no icterus, no cyanosis, no pedal edema . Skin - Patients skin is warm and dry. HEENT - normocephalic, atraumatic, moist mucous membranes. Neck - full ROM, no LAD, no JVD Pulmonary - B/L diminished breath sounds without any wheezing or rales cardiovascular - regular S1,S2 heard, no added sounds, no murmurs heard. peripheral pulses normal radial 2+, pedal 2+. capillary refill normal about 3 seconds GI - soft, nontender abdomen. no hepatospleenomegaly. Bowel sounds normoactive Neurological - Patient is A/O X 3 . Bilateral upper extremity strength 5/5, bilateral lower extremity strength 5/5, no facial droop, normal speech, no tremor, no sensory deficiets. laboratory and microbiology Laboratory Tests 02/18/25 05:31 Test 02/18/25 05:31 Range/Units Serum Glucose 99 74-106 mg/dL Microbiology Date/Time Source Procedure Growth Status 02/16/25 17:20 Nose MRSA Screen - Final Complete 02/16/25 13:30 Voided Urine Urine Culture - Preliminary Resulted 02/16/25 10:40 Blood Blood Culture - Preliminary NO GROWTH AFTER 48 HOURS OF INCUBATION. Resulted Problem List/Assessment/Plan Problem List/Assessment/Plan Acute on chronic hypoxic/hypercapnic respiratory failure Possible pneumonia likely due to Gram+/- bacteria COPD exacerbation likely due to pneumonia PE less likely, wells score< 4 Possible pleuritic chest pain - chest x-ray shows pulmonary vascular congestion and bilateral lower lobe opacities - on oxygen - sputum culture pending - MRSA screen pending - on vancomycin, ceftriaxone and doxycycline - IV fluids used judiciously - duo nebs q.6 hours - lower extremity venous duplex shows no DVT Acute chest pain, ruled out ACS Hypertensive heart disease without history of heart failure Pulmonary vascular congestion History of palpitations - echocardiogram pending - ECG showed sinus tachycardia with left atrial enlargement - at home patient is on amlodipine 5 mg and diltiazem 360 mg, currently held as the patient is hypotensive Sepsis likely due to pneumonia/UTI - sputum cultures pending - urine bacteria culture pending - on IV antibiotics vancomycin and ceftriaxone LEON on CKD likely due to VMN - IV fluids - monitor electrolytes and kidney function PUD prophylaxis: Protonix DVT prophylaxis: Enoxaparin Goals of care discussed with the patient for over 17 minutes. Full code Time spent: 36 minutes Plan discussed with Dr. Bustamante Plan discussed with: Patient, Other (SOCRATES Donald) My Orders My Orders Orders - MADHAV SMITH RESIDENT Procedure Category Date Status Time Losartan Tablet PHA 02/18/25 In Process (Cozaar Tablet) 10:00 Complete Blood Count LAB 02/19/25 Verified 04:00 Creatinine LAB 02/19/25 Verified 04:00 Pt Request For Service PT 02/18/25 Logged 11:24 Amlodipine Tablet PHA 02/19/25 In Process (Norvasc Tablet) 22:00 Date of Service: Feb 18, 2025 Billing Provider: MILLIE BUSTAMANTE MD Common Visit Codes: [id number] INP/OBS CARE(HIGH) MADHAV SMITH RESIDENT Feb 18, 2025 18:02 MILLIE BUSTAMANTE MD Feb 22, 2025 20:37
[2025-02-18] MEDS: IPRATROPIUM BROM 0.5 MG/2.5ML INH SOL NEB SCH (18:20)
[2025-02-18] MEDS: LEVALBUTEROL HCL 1.25 MG/3 ML NEB NEB SCH (18:21)
[2025-02-18] MEDS: guaiFENesin-DM 100/10mg/5ml SYR PO PRN (18:48)
[2025-02-19] VITALS (12 sets, daily range): BP systolic 119–138; BP diastolic 67–75; PULSE 81–100; RESP 16–18; TEMP 97–98.1; O2SAT 93–100
[2025-02-19 07:00] LABS: Hematocrit 52.8 % (36.0-46.0); Hemoglobin 16.5 g/dL (12.2-16.2); Mean Corpuscular Hemoglobin 22.5 pg (28.0-32.0); Mean Corpuscular Volume 72.0 fL (80.0-100.0); Nucleated Red Blood Cells % 0.3 %
[2025-02-19 07:11] LABS: Chloride 103 mmol/L (98-107); Potassium 3.9 mmol/L (3.5-5.1); Sodium 139 mmol/L (136-145)
[2025-02-19 07:12] LABS: Anion Gap 12 (5-15); Calcium 9.3 mg/dL (8.7-10.4); Carbon Dioxide 24 mmol/L (20-31)
[2025-02-19 07:17] LABS: BUN/Creatinine Ratio 12.6 (10.0-20.0); Blood Urea Nitrogen 12 mg/dL (9-23); Glucose 81 mg/dL (74-106)
[2025-02-19] MEDS: FUROSEMIDE 40 MG/4 ML VIAL IV ONE (09:30)
[2025-02-19] MEDS ORDERED: CEFP200T15 PO (10:12)
[2025-02-19] MEDS ORDERED: LOSA-534 PO (10:12)
[2025-02-19] MEDS ORDERED: DOX100T PO (10:12)
--- NOTE | 2025-02-19 11:37 | DVHDSRES ---
Discharge Summary Date of Admission Resident Creating Document: MADHAV GAUTHIER RESIDENT Feb 16, 2025 at 18:35 Date of Discharge: Feb 19, 2025 Admitting Diagnosis Shortness of breath Labs/Diagnostic Data: Laboratory Results Test 02/19/25 05:46 02/18/25 21:50 02/17/25 05:40 02/16/25 21:02 White Blood Count 10.7 10^3/uL (4.4-10.8) Red Blood Count 7.34 10^6/uL (4.0-5.20) Hemoglobin 16.5 g/dL (12.2-16.2) Hematocrit 52.8 % (36.0-46.0) Mean Corpuscular Volume 72.0 fL (80.0-100.0) Mean Corpuscular Hemoglobin 22.5 pg (28.0-32.0) Mean Corpuscular Hemoglobin Concent 31.3 g/dL (32.0-36.0) Red Cell Distribution Width 20.7 % (11.8-14.3) Platelet Count 551 10^3/uL (140-450) Mean Platelet Volume 7.5 fL (6.9-10.8) Neutrophils (%) (Auto) 76.5 % (37.0-80.0) Lymphocytes (%) (Auto) 11.2 % (10.0-50.0) Monocytes (%) (Auto) 7.3 % (0.0-12.0) Eosinophils (%) (Auto) 4.0 % (0.0-7.0) Basophils (%) (Auto) 1.0 % (0.0-2.0) Neutrophils # (Auto) 8.2 10 ^3/uL (1.6-8.6) Lymphocytes # (Auto) 1.2 10 ^3/uL (0.4-5.4) Monocytes # (Auto) 0.8 10 ^3/uL (0-1.3) Eosinophils # (Auto) 0.4 10 ^3/uL (0-0.8) Basophils # (Auto) 0.1 10 ^3/uL (0-0.2) Nucleated Red Blood Cells 0.3 % Sodium Level 139 mmol/L (136-145) Potassium Level 3.9 mmol/L (3.5-5.1) Chloride Level 103 mmol/L (98-107) Carbon Dioxide Level 24 mmol/L (20-31) Anion Gap 12 (5-15) Blood Urea Nitrogen 12 mg/dL (9-23) Creatinine 0.95 mg/dL (0.550-1.02) Glomerular Filtration Rate Calc 64 mL/min (>90) BUN/Creatinine Ratio 12.6 (10.0-20.0) Serum Glucose 81 mg/dL (74-106) Calcium Level 9.3 mg/dL (8.7-10.4) Vancomycin Level Trough 17.2 ug/mL (5-10) Magnesium Level 2.1 mg/dL (1.6-2.6) Total Bilirubin 1.3 mg/dL (0.2-1.0) Aspartate Amino Transferase (AST) 47 U/L (13-40) Alanine Aminotransferase (ALT) 29 U/L (7-40) Alkaline Phosphatase 104 U/L (46-116) Total Protein 7.4 g/dL (5.7-8.2) Albumin 4.0 g/dL (3.2-4.8) Triglycerides Level 113 mg/dL (< 150) Cholesterol Level 114 mg/dL (< 200) LDL Cholesterol 63 mg/dL (< 100) HDL Cholesterol 32 mg/dL (40-59) Thyroid Stimulating Hormone (TSH) 2.26 uIU/mL (0.55-4.78) Random Vancomycin Level 15.4 ug/mL (5-10) Hepatitis B Surface Antigen Negative (Negative) Hepatitis C Antibody Negative (Negative) Blood Gas Specimen Type Arterial Blood Gas Sample Site Right radial Blood Gas Patient Temperature 37.0 Arterial Blood Date Drawn Arterial Blood pH 7.424 (7.350-7.450) Arterial Blood Partial Pressure CO2 41.7 mmHg (32.0-45.0) Arterial Blood Partial Pressure O2 79.9 mmHg (83.0-108.0) Arterial Blood HCO3 26.7 mmol/L (21.0-28.0) Arterial Blood Oxygen Saturation 96.1 % (94.0-98.0) Arterial Blood Base Excess 2.0 mmol/L (-2.0-3.0) Arterial Blood Oxyhemoglobin 94.9 % (94.0-98.0) Arterial Blood Carboxyhemoglobin 0.5 % (0.5-1.5) Arterial Blood Methemoglobin 0.8 % (0.0-1.5) Dao Test Yes Blood Gas Total Hemoglobin 19.80 g/dL (12.0-16.0) Blood Gas Liter Flow 2.00 Blood Gas Modality Nasal cannula FiO2 % 28.0 Blood Gas Critical Value Read Back Yes Blood Gas Notified Whom pavel Gauthier md Blood Gas Notified Time [id number] Blood Gas Notified By ana Ortega rrt Test 02/16/25 18:59 02/16/25 13:57 02/16/25 13:30 02/16/25 12:15 D-Dimer, Quantitative 1.38 mg/L FEU (0.0-0.49) Lactic Acid Level 1.2 mmol/L (0.4-2.0) Troponin I High Sensitivity 8 ng/L (</=34) Urine Color Yellow (Yellow) Urine Clarity Turbid (Clear) Urine pH 5.5 (5.0-9.0) Urine Specific [place] 1.026 (1.001-1.035) Urine Protein 1+ (Negative) Urine Ketones Trace (Negative) Urine Blood Trace /uL (Negative) Urine Nitrite Negative (Negative) Urine Bilirubin Negative (Negative) Urine Urobilinogen Normal mg/dL (Negative) Urine Leukocyte Esterase 3+ /uL (Negative) Urine RBC 5 /hpf (0 - 4) Urine Microscopic WBC 48 /HPF (0-5) Urine Squamous Epithelial Cells Many /hpf (<5) Urine Bacteria Many /hpf (None Seen) Urine Mucus Few (None Seen) Urine Glucose Normal mg/dL (Normal) Influenza Type A Antigen Negative (Negative) Influenza Type B Antigen Negative (Negative) SARS-CoV-2 Antigen (Rapid) Negative (NEGATIVE) Test 02/16/25 10:40 Platelet Estimate Increased Large Platelets Few Giant Platelets Few Hypochromasia (manual) Moderate Anisocytosis (manual) Slight Microcytosis Moderate Stomatocytes Few B-Type Natriuretic Peptide 20.46 pg/mL (0-100) Other Laboratory Tests 02/19/25 05:46 Brief Hx & Hospital Course: The patient is a 69-year-old female with a history of COPD on 2L home oxygen, hypertension, and palpitations, who presented to the ED with worsening shortness of breath over the past 5 days. Symptoms began with rhinorrhea and progressed to dyspnea and mild cough. She also reported left-sided chest pain, worsened by inspiration and exertion, relieved with rest. She denied fever, chills, sick contacts, leg pain, or history of DVT/PE. On examination, she was breathing comfortably on home oxygen, with diminished breath sounds bilaterally and no wheezing or rales. Chest X-ray revealed pulmonary vascular congestion and bilateral lower lobe opacities. Labs and imaging supported a diagnosis of acute on chronic hypoxic/hypercapnic respiratory failure, likely secondary to pneumonia and COPD exacerbation. PE was considered less likely (Wells score < 4), and ACS was ruled out. She was started on IV vancomycin, ceftriaxone, and doxycycline, with sputum and urine cultures pending. Duo nebulizers were administered every 6 hours. IV fluids were used judiciously due to hypotension. Lower extremity venous duplex showed no DVT. ECG showed sinus tachycardia with left atrial enlargement; echocardiogram is pending. Home antihypertensives were held due to hypotension. Additional concerns included LEON on CKD (GFR 31), managed with IV fluids and electrolyte monitoring. PUD prophylaxis with Protonix and DVT prophylaxis with enoxaparin were initiated. The patient remained clinically stable and continued to improve during hospitalization. All medications and recommendations were thoroughly explained and the patient states she understands and agrees. Detailed discussion held with patient at bedside were all questions were answered and concerns were addressed. Examination Gen - no pallor, no icterus, no cyanosis, no pedal edema . Skin - Patients skin is warm and dry. HEENT - normocephalic, atraumatic, moist mucous membranes. Neck - full ROM, no LAD, no JVD Pulmonary - B/L diminished breath sounds without any wheezing or rales cardiovascular - regular S1,S2 heard, no added sounds, no murmurs heard. peripheral pulses normal radial 2+, pedal 2+. capillary refill normal about 3 seconds GI - soft, nontender abdomen. no hepatospleenomegaly. Bowel sounds normoactive Neurological - Patient is A/O X 3 . Bilateral upper extremity strength 5/5, bilateral lower extremity strength 5/5, no facial droop, normal speech, no tremor, no sensory deficiets. Operations or Procedures PATIENT: HELDER CHANGNAREN Ana ACCT: [id number] UNIT: [id number] : 1955 LOC: OVERFLOW ROOM / BED: [address] [place] [address] / A AGE / SEX: 69 / F ADM STATUS: ADM IN SERVICE 1835 ORDERING PHYSICIAN: MADHAV GAUTHIER PROCEDURE(s): BLDVT - BiLat Lower DVT REASON: suspected DVT ORDER NUMBER(s): [id number], ACCESSION NUMBER(s): [id number] CLINICAL HISTORY: suspected DVT TECHNIQUE: Color and duplex doppler imagine of the bilateral lower extremity veins was performed. Vessel compression and augmentation if possible was also performed. COMPARISON: US BILAT LOWER DVT on DOS: 07/10/23, US BILAT LOWER DVT on DOS: 05/30/23 FINDINGS: Right Lower Extremity: Right common femoral vein: Normal compressibility and flow. Right superficial femoral vein: Normal compressibility and flow. Right popliteal vein: Normal compressibility and flow. Proximal calf veins demonstrate flow. Left Lower Extremity: Left common femoral vein: Normal compressibility and flow. Left superficial femoral vein: Normal compressibility and flow. Left popliteal vein: Normal compressibility and flow. Proximal calf veins demonstrate flow. IMPRESSION: NO SONOGRAPHIC EVIDENCE FOR DEEP VENOUS THROMBOSIS IN THE BILATERAL LOWER EXTREMITY VEINS. PATIENT: NAREN SCHRADER ACCT: [id number] UNIT: [id number] : 1955 LOC: ER ROOM / BED: / AGE / SEX: 69 / F ADM STATUS: REG ER SERVICE 0957 ORDERING PHYSICIAN: ROBBIN VANG DO PROCEDURE(s): CXRP - CHEST PORTABLE REASON: cp ORDER NUMBER(s): [id number], ACCESSION NUMBER(s): [id number] EXAM: XY CHEST PORTABLE Indication: cp Technique: Single frontal view of the chest was obtained Comparison: CT CHEST WITHOUT CONTRAST on DOS: 09/15/24, XY CHEST PORTABLE on DOS: 09/14/24, CT HI-RESOLUTION CHEST CT on DOS: 08/12/24, XY CHEST PORTABLE on DOS: 08/11/24, CT CHEST WITHOUT CONTRAST on DOS: 09/16/23 FINDINGS: Lines and Tubes: None Lungs: No focal consolidation. Pulmonary vascular congestion. Pleura: No effusion. No pneumothorax. Cardiomediastinal contours: Unremarkable. Atherosclerotic vascular calcifications of the thoracic aorta are noted. Bones: No acute osseous abnormality. IMPRESSION: Prominence of the right hilar region with pulmonary vascular congestion and pulmonary edema. PATIENT: HELDER CHANGNAREN ACCT: [id number] UNIT: [id number] : 1955 [facility] AGE / SEX: 69 / F ADM STATUS: ADM IN SERVICE 185 ORDERING PHYSICIAN: MADHAV GAUTHIER RESIDENT PROCEDURE(s): ECIDC - ECHO 2D MODE CARDIAC DOP REASON: dyspnea, orthopnea ORDER NUMBER(s): [id number], ACCESSION NUMBER(s): [id number] APPROVED REPORT EXAM: LIMITED Two-dimensional and M-mode echocardiogram with Doppler and color Doppler. Blood Pressure: 143/92 mmHg INDICATION Dyspnea RISK FACTORS Obesity: Height: 5' 7", Weight: 227 DIMENSIONS LVDd 3.5 (3.8-5.7cm) LA (2D) 3.3 (1.9-4.0cm) Aortic Root 2.9 (2.0- 3.7cm) LVDs 2.5 (2.5-4.0cm) LA (MM) (1.9-4.0cm) Aortic Cusp Exc 1.7 (1.5- 2.0cm) EF (%) 55.0 (55-70%) Rt. Atrium 4.0 (1.9-4.0cm) Asc. Aorta cm IVSd 1.2 (0.7-1.1cm) RV (D) (1.8-2.4cm) PWd 1.2 (0.7-1.1cm) Mitral Valve Mitral Mitral Stenosis E wave 0.90m/s MV Mean GR. mmHg A wave 1.20m/s MV Peak GR. mmHg E/A ratio 0.8 2D MVA cm2 Aortic Valve Aortic Valve Aortic Stenosis V1 0.70m/s AO Mean GR. 5mmHg V2 1.40m/s AO Peak GR. 9mmHg LVOT Diameter 2.3 (1.8-2.4cm) Doppler SULEMA 2.08cm2 Other Information Quality : Technically Limited Rhythm : Tachycardia Technically limited study due to patient moving. Conclusion lvef 65% normal rv function normal atria no severe valve abnormaliteis noted limited study SIGNED BY: BASHIR GOMEZ MD SIGNED DATE/TIME: 02/19/25 1317 PATIENT: HELDER NAREN CHANG ACCT: [id number] : 1955 LOC: [facility] ROOM / BED: [facility] / A AGE / SEX: 69 / F ADM STATUS: ADM IN SERVICE UNIT: [id number] ORDERING PHYSICIAN: ROBBIN VANG DO PROCEDURE(s): EKG - ELECTROCARDIGRAM ORDER NUMBER(s): [id number], ACCESSION NUMBER(s): [id number] [facility] Test Date: 2025-02-16 Test Time: 09:50:36 Pat Name: NAREN CHANG Department: Room: [facility] Gender: F [employer]: veronica : 1955 Requested By: ROBBIN VANG Order Number: [id number] Reading MD: Kris Barnard Measurements Intervals Success Rate: 124 P: 69 NC: 154 QRS: 10 QRSD: 87 T: 80 QT: 324 QTc: 466 Interpretive Statements Sinus tachycardia Ventricular premature complex LAE, consider biatrial enlargement ST elevation, consider inferior injury Baseline wander in lead(s) II,III,aVR,aVF,V3,V4,V6 Electronically Signed On 02-17-2025 22:16:31 PDT by Kris Barnard Please click the below link to view image of tracing. DICTATED BY:KRIS BARNARD Sr., MD DICTATED DATE/TIME:02/16/25 0950 ELECTRONICALLY SIGNED BY:KRIS BARNARD Sr., MD 02/17/25 2225 Condition at Discharge: Stable Final Diagnosis/Problems List Acute on chronic hypoxic/hypercapnic respiratory failure Possible pneumonia likely due to Gram+/- bacteria COPD exacerbation likely due to pneumonia PE less likely, wells score< 4 Possible pleuritic chest pain Acute chest pain, ruled out ACS Hypertensive heart disease without history of heart failure Pulmonary vascular congestion History of palpitations Sepsis likely due to pneumonia/UTI LEON on CKD likely due to VMN Discharge Disposition: Home Discharge Instruct/Medications Diet: Regular Activity: No Restrictions, As Tolerated Follow Up/Referral: fu with pcp Medications: New Prescriptions : Xanax 0.25 Mg Tb 1 Tab PO qQ8hp prn #30 TAB, Cefpodoxime Proxetil 200 Mg Tab PO BID 5 Days #10 TAB, doxycycline monohydrate 100 Mg PO Q12HR 4 Days #8 TAB, Losartan 50 Mg PO Daily 30 Days #30 TAB continue meds as prescribed Scheduled Albuterol Sulfate (Albuterol Sulfate Hfa), INH UD, (Reported) Amlodipine Besylate (Amlodipine Besylate), 1 TAB PO DAILY, (Reported) Amoxicillin & Pot Clavulanate (Augmentin Tablet), 875 MG PO BID Atorvastatin Calcium (Atorvastatin Calcium), 10 MG PO HS Azithromycin (Azithromycin), 1 TAB PO DAILY Cefpodoxime Proxetil (Cefpodoxime Proxetil), 1 TAB PO BID Diltiazem HCl (Diltiazem Hydrochloride E), 360 MG PO DAILY Doxycycline Monohydrate (Doxycycline Monohydrate), 100 MG PO Q12HR Fluticasone Propionate (Nasal) (Fluticasone Propionate), 1 SPRAY KRISTIE DAILY, (Reported) Zvmpdkwrehb-Xhfhtstdcddf-Lafnc (Trelegy Ellipta 100-62.5-25 Mcg/INH), 1 PUFF INH DAILY, (Reported) Furosemide (Lasix), 40 MG PO DAILY Hctz (Hydrochlorothiazide), 1 TAB PO DAILY, (Reported) Hydrocodone-Acetaminophen (Hydrocodone Bitartrate/AC 10-325 mg), 1 TAB PO QID, (Reported) Levalbuterol Tartrate (Levalbuterol Tartrate Hfa), 2 PUFF INH DAILY, (Reported) Losartan Potassium (Losartan Potassium), 1 TAB PO DAILY, (Reported) Losartan Potassium (Losartan Potassium), 50 MG PO DAILY Methylprednisolone (Medrol Dosepak), 4 MG PO UD Metoprolol Tartrate (Lopressor), 1 TAB PO BID, (Reported) Nitroglycerin (Nitrostat), 1 TAB SL PRN, (Reported) Simvastatin (Simvastatin), 1 TAB PO DAILY, (Reported) Scheduled PRN Alprazolam (Xanax), 1 TAB PO Q8HP PRN Temazepam (Restoril), 1 CAP PO QHSP PRN for FOR INSOMNIA, (Reported) Miscellaneous Medications Bupropion Hcl (Bupropion Hcl Sr), PO, (Reported) Ipratropium-Albuterol (Ipratropium [place]/Albut), (Reported) Discharge Statement: "Patient was advised to return to the ER or call 911 if any headaches, dizziness, shortness of breath, chest pain, abdominal pain, bleeding, fevers, or worsening of medical condition. Patient was counseled about treatment plan, medications, possible side effects, patientverbalized understanding. All questions were answered to the best of my ability. This discharge took greater then 30 minutes in planning, reviewing documentation, counseling the patient, and discussing with other team members." ASSESSMENT ASSESSMENT Assessment pneumonia Date of Service: Feb 19, 2025 Billing Provider: MILLIE FAUSTIN MD Common Visit Codes: 37880-TIP/OBS DISCH DAY >30min IAN WILSON RESIDENT Feb 19, 2025 11:37 MILLIE FAUSTIN MD Feb 22, 2025 20:37
[2025-02-19] MEDS ORDERED: ALPR0.25 PO (12:26)
--- NOTE | 2025-02-19 13:17 | DVHSR ---
APPROVED REPORT EXAM: LIMITED Two-dimensional and M-mode echocardiogram with Doppler and color Doppler. Blood Pressure: 143/92 mmHg INDICATION Dyspnea RISK FACTORS Obesity: Height: 5' 7", Weight: 227 DIMENSIONS LVDd3.5 (3.8-5.7cm)LA (2D)3.3 (1.9-4.0cm)Aortic Root2.9 (2.0-3.7cm) LVDs2.5 (2.5-4.0cm)LA (MM) (1.9-4.0cm)Aortic Cusp Exc1.7 (1.5-2.0cm) EF (%) 55.0 (55-70%)Rt. Atrium4.0 (1.9-4.0cm)Asc. Aorta cm IVSd1.2 (0.7-1.1cm)RV (D) (1.8-2.4cm) PWd1.2 (0.7-1.1cm) Mitral Valve MitralMitral Stenosis E wave0.90m/sMV Mean GR.mmHg A wave1.20m/sMV Peak GR.mmHg E/A ratio0.82D MVAcm2 Aortic Valve Aortic ValveAortic Stenosis V10.70m/Manuel Mean GR.5mmHg V21.40m/Manuel Peak GR.9mmHg LVOT Diameter2.3 (1.8-2.4cm)Doppler AVA2.08cm2 Other Information Quality : Technically LimitedRhythm : Tachycardia Technically limited study due to patient moving. Conclusion lvef 65% normal rv function normal atria no severe valve abnormaliteis noted limited study
== END 2025-02-19 15:50 | disposition home or self-care (01) | DRG 871 ==
LOC: ER 09:40 → OVERFLOW 18:35 → TELE-CENTR 21:17
PROVIDERS: ADMIT Internal Medicine Geriatric Medicine; ATTEND Emergency Medicine
DX: A41.59 Other Gram-negative sepsis (principal); J15.69 Pneumonia due to other Gram-negative bacteria; J96.21 Acute and chronic respiratory failure with hypoxia; N17.0 Acute kidney failure with tubular necrosis; J96.22 Acute and chronic respiratory failure with hypercapnia; J15.9 Unspecified bacterial pneumonia; I13.0 Hypertensive heart and chronic kidney disease with heart failure and stage 1 through stage 4 chronic kidney disease, or unspecified chronic kidney disease; N39.0 Urinary tract infection, site not specified; J44.1 Chronic obstructive pulmonary disease with (acute) exacerbation; J44.0 Chronic obstructive pulmonary disease with (acute) lower respiratory infection; Z20.822 Contact with and (suspected) exposure to COVID-19; I50.9 Heart failure, unspecified; N18.9 Chronic kidney disease, unspecified; E78.5 Hyperlipidemia, unspecified; R65.20 Severe sepsis without septic shock; Z88.5 Allergy status to narcotic agent; Z91.0120 Allergy to eggs, unspecified; Z90.710 Acquired absence of both cervix and uterus; Z90.49 Acquired absence of other specified parts of digestive tract
CPT/HCPCS: 36415; 36600; 71045; 80048; 80053; 80061; 80202; 81001; 82805; 83605; 83735; 83880; 84443; 84484; 85025; 85379; 86803; 87040; 87081; 87086; 87340; 87426; 87804; 93005; 93306; 93970; 94640; 97163; G0378; J2405

== ENCOUNTER → 2025-03-30 | Outpatient (CLI) | payer OTHER ==
[~2025-03-30] MED LIST changes: +ALPR0.25 PO; +CEFP200T15 PO; +DOX100T PO
[2025-03-30 14:08] LABS: Mean Corpuscular Hemoglobin 22.6 pg (28.0-32.0); Mean Corpuscular Volume 72.3 fL (80.0-100.0)
[2025-03-30 14:09] LABS: Hematocrit 57.1 % (36.0-46.0); Hemoglobin 17.9 g/dL (12.2-16.2); Nucleated Red Blood Cells % 0.7 %
[2025-03-30 14:22] LABS: Giant Platelets Few
[2025-03-30 14:41] LABS: Alanine Aminotransferase 22 U/L (7-40); Albumin 4.1 g/dL (3.2-4.8); Alkaline Phosphatase 108 U/L (46-116); Anion Gap 8 (5-15); BUN/Creatinine Ratio 10.5 (10.0-20.0); Bilirubin, Total 1.0 mg/dL (0.2-1.0); Blood Urea Nitrogen 12 mg/dL (9-23); Calcium 9.3 mg/dL (8.7-10.4); Carbon Dioxide 27 mmol/L (20-31); Chloride 103 mmol/L (98-107); Glucose 87 mg/dL (74-106); Potassium 4.8 mmol/L (3.5-5.1); Sodium 138 mmol/L (136-145); Total Protein 7.5 g/dL (5.7-8.2); Triglycerides 80 mg/dL (< 150)
== END | disposition home or self-care (01) ==
LOC: LAB 13:41
PROVIDERS: ATTEND Internal Medicine
DX: I11.0 Hypertensive heart disease with heart failure (principal); I50.9 Heart failure, unspecified; E78.5 Hyperlipidemia, unspecified; E66.01 Morbid (severe) obesity due to excess calories; J44.9 Chronic obstructive pulmonary disease, unspecified; Z79.899 Other long term (current) drug therapy
CPT/HCPCS: 36415; 80053; 83036; 84478; 85025

== ENCOUNTER 2025-04-28 05:47 | Outpatient (CLI) | payer OTHER | END 2025-04-28 17:00 | disposition home or self-care (01) | LOC: LAB 05:47 | PROVIDERS: ATTEND Internal Medicine | DX: N39.0 Urinary tract infection, site not specified (principal) | CPT/HCPCS: 87086 ==